=== PATIENT | male | born 1970 | race Caucasian/White ===

== ENCOUNTER 2019-06-22 13:10 | Inpatient (IN) ==
--- NOTE | 2019-06-22 13:40 | EKG Report ---
Test Performed on : 06/22/2019 1:32:50 PM Test Reason : SOB Blood Pressure : / mmHG Vent. Rate : 088 BPM Atrial Rate : 088 BPM P-R Int : 116 ms QRS Dur : 080 ms QT Int : 370 ms P-R-T Axes : 064 -13 073 degrees QTc Int : 447 ms Normal sinus rhythm. Normal ECG When compared with ECG of 01-AUG-2017 16:10, T wave amplitude has increased in Anterior leads QT has shortened Unconfirmed Result
[2019-06-22 13:53] LABS: BASO# 0.05 X1000 (0.0-0.2); BASO% 0.4 % (0.0-0.8); EOS# 0.33 X1000 (0.0-0.7); EOS% 2.7 % (0.0-10.0); HEMATOCRIT 43.1 % (42.0-52.0); HEMOGLOBIN 13.9 g/dL (14.0-18.0); IMM GRAN# 0.09 X1000 (0.0-0.04); IMM GRAN% 0.7 % (0.0-0.5); LYMPH# 2.21 X1000 (1.2-3.4); LYMPH% 17.9 % (20.5-51.1); MCH 28.4 PG (27-31); MCHC 32.3 g/dL (33-37); MONO# 1.43 X1000 (0.11-0.59); MONO% 11.6 % (1.7-9.3); MPV 8.5 FL (7.4-10.4); NEUT# 8.27 X1000 (1.4-6.5); NEUT% 66.7 % (42.2-75.2); PLT 463 X1000 (130-400); RDW 15.9 % (11.5-14.5); WBC 12.38 X1000 (4.8-10.8)
[2019-06-22 14:06] LABS: INR 2.89
[2019-06-22 14:07] LABS: PTT 43.9 Seconds (22.3-41.8)
[2019-06-22 14:09] LABS: AGAP 13; ALBUMIN 4.1 g/dL (3.5-5.0); ALKALINE PHOSPHATASE 86 U/L (32-122); BUN 12 mg/dL (8-22); CALCIUM 9.3 mg/dL (8.8-10.2); CHLORIDE 101 mmol/L (98-107); CK PROFILE 116 U/L (24-204); COSMO 278; CREATININE 1.1 mg/dL (0.7-1.2); ESTIMATED GFR > 60; GLUCOSE 114 mg/dL (70-104); GOT 21 U/L (10-34); GPT 21 U/L (10-44); POTASSIUM 4.5 mmol/L (3.5-5.1); SODIUM 139 mmol/L (136-145); TCO2 25 mmol/L (25-35); TOTAL PROTEIN 6.5 g/dL (6.3-8.3)
[2019-06-22 14:11] LABS: INFLUENZA A NEGATIVE (NEGATIVE); INFLUENZA B NEGATIVE (NEGATIVE)
--- NOTE | 2019-06-22 14:21 | Diag Imaging Result Doc PS360 ---
EXAM: CHEST-2 VIEWS HISTORY: SOB TECHNIQUE: PA and Lateral chest x-ray COMPARISON: 08/01/2017 FINDINGS: The cardiomediastinal silhouette is within normal limits. The pulmonary vasculature is not congested. No infiltrate, effusion, or pneumothorax is appreciated. Symmetrical nodular densities projecting over the lower lung zones likely represent nipple shadows. IMPRESSION: No acute cardiopulmonary abnormality is identified. Suspect bilateral nipple shadows. Correlate clinically. Electronically signed by Belia Medrano 06/22/2019 2:18 PM
[2019-06-22] MEDS ORDERED: DUONEB (A & A) INH ONE ×2 (15:00→15:57)
[2019-06-22] MEDS ORDERED: SOLU-MEDROL IV ONE (15:00)
--- NOTE | 2019-06-22 15:20 | PROVIDER DOCUMENTATION ---
HPI-Respiratory General - General Chief Complaint: Shortness of Breath Stated Complaint: FLU SX Time Seen by Provider: 06/22/19 14:55 Source: patient Allergies/Adverse Reactions: Patient Allergies Allergy/AdvReac Type Severity Reaction Status Date / Time morphine Allergy Unknown Verified 06/22/19 13:18 Home Medications: Home Medication List Medication Instructions Recorded Confirmed Last Taken Type Atenolol 100 mg PO BID 06/04/17 04/21/19 06/04/17 History Bupropion HCl 100 mg PO BID 06/04/17 04/21/19 06/04/17 History Diclofenac Sodium 50 mg PO BID 06/04/17 04/21/19 06/04/17 History Oxcarbazepine 300 mg PO BID 06/04/17 04/21/19 06/04/17 History Verapamil [Isoptin] 120 mg PO DAILY 06/04/17 04/21/19 06/04/17 History Ziprasidone HCl 80 mg PO BID 06/04/17 04/21/19 06/04/17 History Zolpidem [Ambien] 5 mg PO QHS 06/04/17 04/21/19 1 Day Ago History ~06/03/17 Acetaminophen/Diphenhydramine 1 ea PO Q6HR PRN #14 tab 04/21/19 Unknown Rx [Percogesic 325-12.5 mg Tablet] Atorvastatin Calcium 40 mg PO DAILY 04/21/19 04/21/19 Unknown History Warfarin Sodium [Coumadin] 5 mg PO DAILY 04/21/19 04/21/19 Unknown History Warfarin Sodium [Coumadin] 7.5 mg PO DAILY 04/21/19 04/21/19 Unknown History - History of Present Illness-Resp Nature of Presenting Problem: [id number] presents to the ER with c/o SOB with productive cough x 1 week. He reports extreme dyspnea with exertion. He reports he is a 2 PPD smoker and has a history of COPD. Severity in ED: reports: moderate Onset/Duration: reports: 1 week ago Cough Quality/Degree: reports: productive cough Episode Frequency: occasional episodes Current Respiratory Medication Therapy: Initiated A/A nebulizer Modifying Factors: improves with: albuterol nebulizer Associated Symptoms: reports: cough, shortness of breath, sweaty, wheezing Similar Symptoms Previously?: No Recently seen or treated by another doctor?: No Review of Systems - Adult - REVIEW OF SYSTEMS - ADULT Constitutional: reports: see HPI. denies: chills, fever Eyes: reports: no symptoms reported Ears, Nose, Mouth & Throat: reports: no symptoms reported Cardiovascular: reports: see HPI, orthopnea. denies: chest pain Respiratory: reports: see HPI, cough, dyspnea on exertion, excessive sputum production, shortness of breath, wheezing Gastrointestinal: reports: no symptoms reported Genitourinary: reports: no symptoms reported Musculoskeletal: reports: no symptoms reported Integumentary: reports: no symptoms reported Neurological: reports: no symptoms reported Psychiatric: reports: no symptoms reported Endocrine: reports: no symptoms reported Hematologic/Lymphatic: reports: no symptoms reported Allergic/Immunologic: reports: no symptoms reported All Other Systems: Reviewed and Negative Past History - Adult - PAST MEDICAL HISTORY-ADULT Review of Records: reports: Old Records Reviewed, Nursing Assessment Review, Medications Reviewed, Social history reviewed & non-contributory. Major Childhood Illnesses: reports: denies history Cardiovascular: reports: HTN, hyperlipidemia Respiratory: reports: COPD Gastrointestinal: reports: denies history Obstetrical/Gynecological: reports: denies history Genitourinary: reports: other (ED) Musculoskeletal: reports: chronic pain Neurological: reports: cognitive dysfunction, Seizures/Epilepsy, spinal cord/brain injury, other Psychiatric: reports: anxiety, bipolar, depression, psychiatric problems Endocrine/Immune: reports: denies history Other Conditions: reports: denies history - PRIOR SURGERIES/PROCEDURES Surgical/Procedure History: reports: orthopedic (extremity), back/neck, other (brain) - IMMUNIZATION STATUS Childhood Immunizations: See Nurse Assessment Flu Vaccine: See Nurse Assessment - FAMILY HISTORY Family History: reviewed, not pertinent - SOCIAL HISTORY Smoking: cigarettes, greater than 1 pack/day Provider spent 3-5 mins advising pt. on dangers of tobacco.: Discussed manners to quit use, and f/u contacts for add'l counseling. Substance Use: denies Living Situation: family Physical Exam-General - PHYSICAL EXAM-ADULT Initial Vital Signs Reviewed: Yes - CONSTITUTIONAL General Appearance: alert, moderate distress - EYES Eyes: PERRL/EOMI, pink conjunctivae - HEAD, EARS, NOSE, MOUTH & THROAT HENMT: moist mucous membranes, TMs normal - NECK Neck: full range of motion, supple, normal inspection - RESPIRATORY Respiratory: rhonchi, wheezing - CARDIOVASCULAR Cardiovascular: regular rate, rhythm - GASTROINTESTINAL (ABDOMEN) Abdominal Exam: non tender, soft - MUSCULOSKELETAL Extremity: normal range of motion, normal gait Peripheral Pulses: radial (R): 2+, radial (L): 2+ - SKIN Integumentary: normal color, warm/dry - NEUROLOGIC Neurologic: grossly normal - PSYCHIATRIC Psych/Mental Status: oriented x 3 - HEART Score HEART Score: History: Slightly Suspicious HEART Score: ECG: Normal HEART Score: Age: 45-65 Years HEART Score: Risk Factors for Atherosclerotic Disease: No Risk Factors Known HEART Score: Troponin: < or = Normal Limit Total HEART Score:: 1 Progress - PLAN OF CARE/RESULTS Progress/Plan/Lab Results: Vital Signs - 8 hr 06/22/19 13:15 06/22/19 15:03 06/22/19 15:12 Temperature 97.6 F Pulse Rate 99 H 84 85 Respiratory Rate 20 16 20 Blood Pressure 166/105 154/110 O2 Sat by Pulse Oximetry 96 97 94 L 06/22/19 15:41 Temperature Pulse Rate 90 Respiratory Rate 24 Blood Pressure 164/116 O2 Sat by Pulse Oximetry 95 Laboratory Results - last 24 hr 06/22/19 06/22/19 06/22/19 13:24 13:24 13:24 WBC 12.38 H RBC 4.90 Hgb 13.9 L Hct 43.1 MCV 88.0 MCH 28.4 MCHC 32.3 L RDW Std Deviation 15.9 H Plt Count 463 H MPV 8.5 Immature Gran % (Auto) 0.7 H Neut % (Auto) 66.7 Lymph % (Auto) 17.9 L [place] % (Auto) 11.6 H Eos % (Auto) 2.7 Baso % (Auto) 0.4 Immature Gran # (Auto) 0.09 H Neut # (Auto) 8.27 H Lymph # (Auto) 2.21 [place] # (Auto) 1.43 H Eos # (Auto) 0.33 Baso # (Auto) 0.05 PT INR PTT (Actin FS) D-Dimer, Quantitative Specimen Type Sample Site pH pCO2 pO2 HCO3 Base Excess Oxyhemoglobin ABG O2 Sat (Calculated) ABG O2 Saturation ABG Carboxyhemoglobin ABG Methemoglobin Kaden Test A-a O2 Difference Total Hemoglobin Lactate Blood Gas Modality FiO2 % Sodium 139 Potassium 4.5 Chloride 101 Carbon Dioxide 25 Anion Gap 13 BUN 12 Creatinine 1.1 Estimated GFR/1.73 m2 > 60 BUN/Creatinine Ratio 11 Glucose 114 H Calculated Osmolality 278 Calcium 9.3 Total Bilirubin 0.20 AST 21 ALT 21 Alkaline Phosphatase 86 Creatine Kinase 116 Troponin T Sft-M-Ltdadtkendn Pept Total Protein 6.5 Albumin 4.1 Globulin 2.0 Albumin/Globulin Ratio 2.0 Influenza A (Rapid) NEGATIVE Influenza B (Rapid) NEGATIVE 06/22/19 06/22/19 06/22/19 13:24 13:24 13:24 WBC RBC Hgb Hct MCV MCH MCHC RDW Std Deviation Plt Count MPV Immature Gran % (Auto) Neut % (Auto) Lymph % (Auto) [place] % (Auto) Eos % (Auto) Baso % (Auto) Immature Gran # (Auto) Neut # (Auto) Lymph # (Auto) [place] # (Auto) Eos # (Auto) Baso # (Auto) PT 32.0 H INR 2.89 PTT (Actin FS) 43.9 H D-Dimer, Quantitative Specimen Type Sample Site pH pCO2 pO2 HCO3 Base Excess Oxyhemoglobin ABG O2 Sat (Calculated) ABG O2 Saturation ABG Carboxyhemoglobin ABG Methemoglobin Kaden Test A-a O2 Difference Total Hemoglobin Lactate Blood Gas Modality FiO2 % Sodium Potassium Chloride Carbon Dioxide Anion Gap BUN Creatinine Estimated GFR/1.73 m2 BUN/Creatinine Ratio Glucose Calculated Osmolality Calcium Total Bilirubin AST ALT Alkaline Phosphatase Creatine Kinase Troponin T < 0.010 [id number] Pept 267 H Total Protein Albumin Globulin Albumin/Globulin Ratio Influenza A (Rapid) Influenza B (Rapid) 06/22/19 06/22/19 13:24 15:17 WBC RBC Hgb Hct MCV MCH MCHC RDW Std Deviation Plt Count MPV Immature Gran % (Auto) Neut % (Auto) Lymph % (Auto) [place] % (Auto) Eos % (Auto) Baso % (Auto) Immature Gran # (Auto) Neut # (Auto) Lymph # (Auto) [place] # (Auto) Eos # (Auto) Baso # (Auto) PT INR PTT (Actin FS) D-Dimer, Quantitative 0.32 Specimen Type ARTERIAL Sample Site R RADIAL pH 7.47 H pCO2 42 pO2 63 HCO3 29.6 H Base Excess 6.2 H Oxyhemoglobin 91.5 L ABG O2 Sat (Calculated) 18.9 ABG O2 Saturation 95.4 ABG Carboxyhemoglobin 3.00 H ABG Methemoglobin 1.1 Kaden Test YES A-a O2 Difference 34.0 Total Hemoglobin 14.7 Lactate 1.30 Blood Gas Modality ROOM AIR FiO2 % 21.0 Sodium Potassium Chloride Carbon Dioxide Anion Gap BUN Creatinine Estimated GFR/1.73 m2 BUN/Creatinine Ratio Glucose Calculated Osmolality Calcium Total Bilirubin AST ALT Alkaline Phosphatase Creatine Kinase Troponin T Aor-F-Iiwyspjjlho Pept Total Protein Albumin Globulin Albumin/Globulin Ratio Influenza A (Rapid) Influenza B (Rapid) Orders Category Date Time Status Cardiac Monitoring DIRECTED Care 06/22/19 13:19 Active Oxygen Therapy- ED Nursing DIRECTED Care 06/22/19 13:19 Active Saline Loc NOW Care 06/22/19 13:19 Active CHEST-2 VIEWS [RAD] Stat Exams 06/22/19 13:19 Completed ABG [RESP] Routine Lab 06/22/19 15:17 Completed CBC WITH ELECTRONIC DIFF [HEME] Stat Lab 06/22/19 13:24 Completed CK PROFILE [SP CHEM] Stat Lab 06/22/19 13:24 Completed CK PROFILE [SP CHEM] Stat Lab 06/22/19 15:01 Ordered COMPREHENSIVE METABOLIC PANEL [CHEM] Stat Lab 06/22/19 13:24 Completed D-DIMER [COAG] Stat Lab 06/22/19 13:[address] Stat Lab 06/22/19 13:24 Completed PRO B-NATRIURETIC PEPTIDE Stat Lab 06/22/19 13:24 Completed PROTIME WITH INR [COAG] Stat Lab 06/22/19 13:24 Completed PTT [COAG] Stat Lab 06/22/19 13:24 Completed TROPONIN T Stat Lab 06/22/19 13:24 Completed TROPONIN T Stat Lab 06/22/19 15:01 Ordered Albuterol 2.5MG/Ipratrop 0.5MG [Duoneb (A & A)] Med 06/22/19 15:00 Discontinued 3 ml INH NOW ONE Methylprednisolone Sod Succ [Solu-Medrol] Med 06/22/19 15:00 Discontinued 125 mg IV NOW ONE Aerosol Treatments Routine Oth 06/22/19 15:00 Completed Aerosol Treatments Stat Oth 06/22/19 15:00 Completed CP/SOB/Palp >45 yrs of Age Stat Oth 06/22/19 13:19 Ordered EKG [EKG] Stat Ther 06/22/19 13:19 Draft EKG [EKG] Stat Ther 06/22/19 15:01 Ordered patient verbalizes an understanding of POC and agrees with treatment rendered here today. Result Diagrams: 06/22/19 13:24 06/22/19 13:24 - EKG 1 Time of EKG reading by physician:: 15:22 EKG Read and Signed by:: Jose Antonio Smith EKG Interpretation (*Must complete 3 of following elements*): Normal Rate: 88 Rhythm: NSR [place]: normal QRS: normal [place] Interval: normal ST Wave: normal - XRAY 1 XRAY Study: Chest Impression: See EMR Report ( FINDINGS: The cardiomediastinal silhouette is within normal limits. The pulmonary vasculature is not congested. No infiltrate, effusion, or pneumothorax is appreciated. Symmetrical nodular densities projecting over the lower lung zones likely represent nipple shadows. IMPRESSION: No acute cardiopulmonary abnormality is identified. Suspect bilate ral nipple shadows. Correlate clinically.) - CONSULTS/PCP/HOSPITALIST Notification #1 *Consult/PCP/Hospitalist*: Dr mcarthur Time Discussed: 15:56 Reason/Comments: COPD exacerbation Consult Disposition: Admit Departure - Departure Date of Disposition Decision: 06/22/19 Time of Disposition Decision: 15:55 DIAGNOSIS: COPD exacerbation Disposition: ADMITTED INPATIENT 09 Certified Medical Emergency: Emergent Condition: Critical Additional Instructions: ED Follow Up Instructions: You have been treated by a care provider in the Emergency Department. These instructions are being provided to you so you can have an understanding of how to care for yourself upon discharge. Upon discharge from the Emergency Department, you are responsible for making arrangements for follow-up care by a physician of your choice. Take all prescribed medications as directed. Return to the Emergency Department immediately for any new or worsening symptoms. You may call the Physician Referral phone number at [phone] to obtain a list of Physicians who are taking new patients. Referrals and Follow-Ups: None,PCP [Primary Care Provider] - - Critical Care Note This patient required my direct & personal management of CC.: No Attestation - Physician/ MIRNA Attestation Patient care was provided by Advanced Practice Provider:: Yes Advanced Practice Provider:: Glenroy Chahal Advanced Practice Provider documentation review:: The Mid-level provider documentation, treatment plan and medical decision making was reviewed by the physician who agrees with all treatment and medical decision making by the MLP. The physician spent face to face time with patient:: No Advanced Practice Provider documentation review:: Supervising physician onsite and consulted in the evaluation and care of this patient. The physician did not have a face to face encounter with the patient.
[2019-06-22 15:26] LABS: BE 6.2 mmoll (-3.0-3.0); BLOOD TYPE ARTERIAL; HCO3-(ACT) 29.6 mmoll (20.0-26.0); METHB 1.1 % (0.0-1.5); O2(CT) 18.9 mL/dL (15.0-23.0); O2HB 91.5 % (95.0-99.0); PCO2(98.6) 42 mmHg (35-45); PO2(98.6) 63 mmHg (60-100); SAMPLE BLOOD; SAO2 95.4 % (95.0-100.0); THB 14.7 g/dL (11.5-17.4); pH(98.6) 7.47 (7.35-7.45)
[2019-06-22 15:29] LABS: MODALITY ROOM AIR
[2019-06-22 15:30] LABS: ALLEN TEST YES
--- NOTE | 2019-06-22 17:45 | HISTORY AND PHYSICAL ---
PRIMARY CARE PHYSICIAN: None. CHIEF COMPLAINT: Shortness of breath and a productive cough with dyspnea on exertion for 1 week that has progressively worsened. HISTORY OF PRESENTING ILLNESS: This is a 48-year-old male who presents to [facility] ER with a 1-week history of shortness of breath, dyspnea with exertion and a productive cough for 1 week that has progressively worsened. States he has continued to smoke and was a 2 pack a day smoker but over this past week has decreased down to about 3/4 of a pack and has a history of COPD actually asked me while I was assessing him if he could go outside and smoke. Explained to him that he would not be able to do that we would place him on a nicotine patch. His white blood cell count was 12.38. He was saturating 96% on room air when he arrived with a blood pressure 166/105. He is noted to have wheezing expiratory throughout entire posterior lung hector but his chest x-ray showed no acute cardiopulmonary abnormality so he will be admitted for an acute COPD exacerbation for further evaluation and treatment. PAST MEDICAL HISTORY: COPD, hypertension, hyperlipidemia, erectile dysfunction, seizures, anxiety and bipolar. PAST SURGICAL HISTORY: Of a back and neck surgery and a brain surgery. FAMILY HISTORY: Reviewed and noncontributory. SOCIAL HISTORY: Currently lives with family. He has been a 2 pack a day smoker since he was 12 years old but over the past week decreased down to 3/4 of a pack a day. Denies any alcohol or illicit drug use. ALLERGIES: Morphine. HOME MEDICATIONS: A current list will need to be obtained, reconciled, reviewed and restarted as appropriate. Will place an order for nursing to update and confirm home medications. LABORATORY DATA: Showed a white blood cell count of 12.38, hemoglobin 13.9, hematocrit 43.1, platelets 463,000, PT and INR of 32 and 2.89, D-dimer of 0.32. ABG with a pH of 7.47, pCO2 of 42, PO2 63, bicarb 29.6 this was on room air. Sodium 139, potassium 4.5, chloride 101, CO2 25, BUN of 12, creatinine 1.1, glucose 114. Creatine kinase of 116, troponin less than 0.010 with a proBNP of 267. Influenza A and B were both negative. Chest x-ray showed no acute cardiopulmonary abnormality identified. EKG showed normal sinus rhythm at 88. REVIEW OF SYSTEMS: He denied any fever, chills, blurred vision, dizziness, he denied any chest pain. He has had a productive cough, shortness of breath, dyspnea with exertion. Denied any abdominal pain, constipation, diarrhea, burning or hurting with urination. PHYSICAL EXAMINATION: On arrival he had a temperature of 97.6 degrees, pulse 99, respirations 20, blood pressure 166/105, saturating 96% on room air. GENERAL: This is a 48-year-old male who is sitting up in the bed and answers questions appropriately. HEENT: Normocephalic, atraumatic. Normal ENT inspection. Oropharynx and nares are clear. Pupils are equal, round, reactive to light, accommodation. Extraocular movements are intact. NECK: Normal inspection, normal range of motion. LUNGS: With wheezing expiratory throughout entire posterior lung hector. Equal lung expansion, chest wall movement noted. HEART: Regular rate and rhythm. No murmurs, rubs, or gallops. ABDOMEN: Soft, nontender, nondistended. Bowel sounds are present x4 quadrants. MUSCULOSKELETAL: He had 5/5 strength x4 extremities. NEUROLOGICAL: The cranial nerves 2-12 appear grossly intact. ASSESSMENT: 1. Acute chronic obstructive pulmonary disease exacerbation. 2. Leukocytosis. 3. Hypertension. 4. Tobacco abuse. OUR PLAN: He will be admitted to the medical unit placed on telemetry, O2 per protocol, placed on a healthy heart diet. Will place on Rocephin 1 gram IV q.24, azithromycin 500 IV q.24, Solu- Medrol 80 mg IV q.6 will wean as he improves, nicotine 21 mg transdermal patch daily apply 1 now, Lovenox 40 mg subcu for DVT prophylaxis, DuoNeb q.4 hours, incentive spirometry. We need to update and confirm home medications and recheck a CBC, BMP in the a.m. Further orders after seen by attending. Dictated by KARLA Glover for Erick Taveras MD cc: KARLA Glover MD Pt seen and examined, he has dyspnea, productive cough and features c/w COPD exacerbation, will admit for iv steroids, abx and follow closely. [facility]
[2019-06-22] MEDS ORDERED: APRESOLINE IV PRN (18:05)
[2019-06-22] MEDS ORDERED: LOVENOX SUBQ SCH (18:05)
[2019-06-22] MEDS ORDERED: ROCEPHIN 1 GM in NS 50 ML IV SCH (18:05)
[2019-06-22] MEDS: NICODERM PATCH TD SCH (19:34)
[2019-06-22] MEDS: DUONEB (A & A) INH SCH ×2 (19:42→23:30)
[2019-06-22] MEDS ORDERED: ZITHROMAX 500 MG/NS 500 MG/250 ML IVPB IV SCH (20:00)
[2019-06-22] MEDS: SOLU-MEDROL IV SCH (20:16)
[2019-06-23] MEDS: SOLU-MEDROL IV SCH ×3 (02:45→14:46)
[2019-06-23] MEDS: DUONEB (A & A) INH SCH ×4 (02:47→15:54)
--- NOTE | 2019-06-23 05:50 | EKG Report ---
Test Performed on : 06/23/2019 05:23:09 AM Test Reason : CP Blood Pressure : / mmHG Vent. Rate : 100 BPM Atrial Rate : 100 BPM P-R Int : 122 ms QRS Dur : 084 ms QT Int : 386 ms P-R-T Axes : 070 019 086 degrees QTc Int : 497 ms Normal sinus rhythm. Prolonged QT Abnormal ECG No previous ECGs available Confirmed by Jose Antonio Smith MD ([id number]) on 06/28/2019 1:48:46 AM
[2019-06-23 06:35] LABS: BASO# 0.01 X1000 (0.0-0.2); BASO% 0.1 % (0.0-0.8); HEMATOCRIT 42.4 % (42.0-52.0); HEMOGLOBIN 13.5 g/dL (14.0-18.0); IMM GRAN# 0.07 X1000 (0.0-0.04); IMM GRAN% 0.4 % (0.0-0.5); LYMPH# 0.52 X1000 (1.2-3.4); LYMPH% 2.9 % (20.5-51.1); MCH 27.8 PG (27-31); MCHC 31.8 g/dL (33-37); MCV 87.2 FL (81-99); MONO# 0.18 X1000 (0.11-0.59); MPV 8.8 FL (7.4-10.4); NEUT# 17.26 X1000 (1.4-6.5); NEUT% 95.6 % (42.2-75.2); PLT 475 X1000 (130-400); RBC 4.86 XMIL (4.7-6.1); RDW 15.7 % (11.5-14.5); WBC 18.04 X1000 (4.8-10.8)
[2019-06-23 06:44] LABS: AGAP 16; BUN 19 mg/dL (8-22); CALCIUM 9.4 mg/dL (8.8-10.2); CHLORIDE 93 mmol/L (98-107); COSMO 276; CREATININE 1.1 mg/dL (0.7-1.2); ESTIMATED GFR > 60; GLUCOSE 231 mg/dL (70-104); SODIUM 133 mmol/L (136-145); TCO2 24 mmol/L (25-35)
[2019-06-23 07:14] LABS: ANISOCYTOSIS OCCASIONAL; LYMPHS 1 % (21-51); POLYCHROM OCCASIONAL; SEGS 99 % (42-75)
[2019-06-23 07:15] LABS: LARGE PLATELETS OCCASIONAL; OVALOCYTES OCCASIONAL; POIKILOCYTOSIS OCCASIONAL
[2019-06-23] MEDS: NICODERM PATCH TD SCH (09:31)
[2019-06-23] MEDS ORDERED: STERILE WATER INJ. INJ PRN (11:59)
[2019-06-23] MEDS ORDERED: GEODON IM PRN (11:59)
[2019-06-23 12:34] VITALS: BP 153/98
[2019-06-23] MEDS ORDERED: TESSALON PO PRN (13:55)
--- NOTE | 2019-06-23 19:12 | DISCHARGE SUMMARY ---
ADMISSION DATE: 06/22/2019 DISCHARGE DATE: 06/23/2019 DISCHARGE DIAGNOSES: 1. Chronic obstructive pulmonary disease exacerbation, acute. 2. Persistent tobacco abuse. 3. Posttraumatic stress disorder. 4. Hypertension. HOSPITAL COURSE: The patient was admitted for COPD exacerbation. He had significant wheezing, persistent smoking. His white count was mildly elevated. I do not think his chest x-ray showed any CHF. In any case, he was placed on breathing treatments and steroids, and clinically improved by the next day. He was getting a little agitated, and I think it may have been related to the steroids. Of note, he did have a fasting blood sugar that was elevated around 200, but I think that was due to steroid-induced hyperglycemia versus a true diagnosis of diabetes at this point, so he was educated on carb restriction and will follow up with his PCP. DISCHARGE MEDICATIONS: Ambien 5, atenolol 100 b.i.d., atorvastatin 40, benzonatate p.r.n., Wellbutrin (but I think he does not take that anymore and there is questionable history of seizures so he should probably not be taking that), Coumadin 10, diclofenac 50 b.i.d., Isoptin 120 daily, oxcarbazepine 300 b.i.d. (although this was not confirmed), prednisone 10 daily(again, not sure that was confirmed), [place], Chantix 0.5 b.i.d. starter pack, Medrol Dosepak, and cefdinir 300 b.i.d. He will also need to be getting DuoNeb treatments, and he reportedly has a machine for that. DISPOSITION: Home. FOLLOWUP: Follow up with his PCP to discuss about the Chantix and to follow up on the steroid- induced hyperglycemia. cc: Erick Taveras MD
[2019-06-23] MEDS ORDERED: AMBIEN PO SCH (21:00)
[2019-06-23] MEDS ORDERED: VOLTAREN PO SCH (21:00)
[2019-06-23] MEDS ORDERED: TENORMIN PO SCH (21:00)
[2019-06-24] MEDS ORDERED: ISOPTIN SR PO SCH (09:00)
[2019-06-24] MEDS ORDERED: PREDNISONE PO SCH (09:00)
[2019-06-24] MEDS ORDERED: COUMADIN PO SCH (21:00)
[2019-06-24] MEDS ORDERED: LIPITOR PO SCH (21:00)
== END 2019-06-23 15:10 | disposition home or self-care (01) | DRG 192 ==
LOC: P.ED 13:10 → P.EDIPHOLD 16:31
PROVIDERS: ATTEND Internal Medicine

== ENCOUNTER 2019-06-28 06:42 | Inpatient (IN) ==
[2019-06-28 07:18] LABS: BE -2.5 mmoll (-3.0-3.0); BLOOD TYPE ARTERIAL; HCO3-(ACT) 22.9 mmoll (20.0-26.0); METHB 1.1 % (0.0-1.5); O2(CT) 20.7 mL/dL (15.0-23.0); O2HB 96.4 % (95.0-99.0); PO2(98.6) 372 mmHg (60-100); SAMPLE BLOOD; SAO2 99.9 % (95.0-100.0); THB 14.6 g/dL (11.5-17.4)
[2019-06-28] MEDS ORDERED: AMIDATE ONE (07:20)
[2019-06-28] MEDS ORDERED: QUELICIN ONE (07:20)
[2019-06-28] MEDS ORDERED: QUELICIN IV ONE (07:21)
[2019-06-28] MEDS ORDERED: NS 1,000 ML ONE ×2 (07:21→10:13)
[2019-06-28] MEDS ORDERED: D50W SYRINGE ONE (07:21)
[2019-06-28] MEDS ORDERED: AMIDATE IV ONE ×2 (07:22→07:40)
[2019-06-28] MEDS ORDERED: NS 1,000 ML IV ONE ×3 (07:23→12:22)
[2019-06-28] MEDS ORDERED: D50W SYRINGE IV ONE (07:24)
[2019-06-28] MEDS ORDERED: VERSED ONE ×2 (07:33→09:12)
[2019-06-28] MEDS ORDERED: ATIVAN ONE (07:35)
[2019-06-28] MEDS ORDERED: VERSED IV ONE ×2 (07:35→09:39)
[2019-06-28] MEDS ORDERED: NS 250 ML ONE (07:36)
[2019-06-28] MEDS ORDERED: TYLENOL PR ONE (07:42)
[2019-06-28] MEDS ORDERED: ATIVAN 20 MG in NS 190 ML IV SCH (07:45)
--- NOTE | 2019-06-28 07:51 | PROVIDER DOCUMENTATION ---
HPI-Neurological Disorder - General Chief Complaint: Seizure Stated Complaint: SEIZURE Time Seen by Provider: 06/28/19 07:02 Source: EMS, RN notes reviewed Allergies/Adverse Reactions: Patient Allergies Allergy/AdvReac Type Severity Reaction Status Date / Time morphine Allergy Unknown Verified 06/27/19 21:18 Home Medications: Home Medication List Medication Instructions Recorded Confirmed Last Taken Type Atenolol 100 mg PO BID 06/04/17 06/27/19 06/22/19 08:00 History Verapamil [Isoptin] 120 mg PO DAILY 06/04/17 06/27/19 06/22/19 08:00 History Zolpidem [Ambien] 5 mg PO QHS 06/04/17 06/27/19 06/21/19 21:00 History Warfarin Sodium [Coumadin] 10 mg PO DAILY 04/21/19 06/27/19 06/22/19 08:00 History Prednisone 1 tab PO DAILY 06/22/19 06/27/19 06/21/19 08:00 History Albuterol 2.5MG/Ipratrop 0.5MG 3 ml INH RTQ6H #120 neb 06/23/19 06/27/19 Unknown Rx [Duoneb] CefDINIR [Omnicef] 300 mg PO BID #14 cap 06/23/19 06/27/19 Unknown Rx - History of Present Illness-Neuro Nature of Presenting Problem: patient left AMA last night refused admission for COPD, return with seizure, decreased mental status and diaphoresis Severity: reports: moderate Onset/Duration: reports: abrupt, this morning Timing: reports: still present Character of Altered Mental Status: reports: disoriented, seizure activity, decreased responsiveness Any recent trauma/injury?: reports: none Cognitive Baseline: alert, oriented x3 Gait Baseline: walks without assistance Associated Symptoms: reports: short of breath, diaphoretic, seizures Similar Symptoms Previously?: Yes Recently seen or treated by another doctor?: Yes (treated in ER left AMA ) - Seizure First time to have a seizure?: No Witnessed seizure?: Yes Episode Frequency: rare episodes Status Epilepticus: Yes Character of Seizure: reports: lost consciousness Post-ictal Symptoms: reports: confusion Review of Systems - Adult - REVIEW OF SYSTEMS - ADULT Constitutional: reports: fever, fatique Ears, Nose, Mouth & Throat: reports: no symptoms reported Cardiovascular: reports: syncope Respiratory: reports: cough, shortness of breath Gastrointestinal: reports: no symptoms reported Genitourinary: reports: no symptoms reported Musculoskeletal: reports: no symptoms reported Integumentary: reports: no symptoms reported Neurological: reports: seizure, syncope Psychiatric: reports: no symptoms reported Endocrine: reports: no symptoms reported Hematologic/Lymphatic: reports: no symptoms reported Allergic/Immunologic: reports: no symptoms reported Past History - Adult - PAST MEDICAL HISTORY-ADULT Review of Records: reports: Nursing Assessment Review Major Childhood Illnesses: reports: denies history Cardiovascular: reports: HTN, hyperlipidemia Respiratory: reports: COPD Gastrointestinal: reports: denies history Obstetrical/Gynecological: reports: denies history Genitourinary: reports: other (ED) Musculoskeletal: reports: chronic pain Neurological: reports: cognitive dysfunction, Seizures/Epilepsy, spinal cord/brain injury, other Psychiatric: reports: anxiety, bipolar, depression, psychiatric problems Endocrine/Immune: reports: denies history Other Conditions: reports: denies history - PRIOR SURGERIES/PROCEDURES Surgical/Procedure History: reports: orthopedic (extremity), back/neck, other (brain) - IMMUNIZATION STATUS Childhood Immunizations: See Nurse Assessment Flu Vaccine: See Nurse Assessment - FAMILY HISTORY Family History: reviewed, not pertinent Physical Exam- Neurological - Physical Exam-Neuro Initial Vital Signs Reviewed: Yes General Appearance: obtunded HENMT: normocephalic/atraumatic Head Injury: no evidence of injury. negative: active bleeding, Mello's Sign Neck: full range of motion, supple. negative: C-spine tenderness Respiratory: decreased breath sounds, prolonged expiration, other (shallow breathing). 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 Exam: other (moved all extremities at time, unable to fully assess due to patient's current mental status) Motor/Sensory: no motor deficit, no sensory deficit Neurologic: other (moved all extremities) Integumentary: pallor - Glascow Coma Scale Best Eye Response: (2) open to pain Best Verbal Response: (1) no verbal response Best Motor Response: (4) withdraws to pain Progress - PLAN OF CARE/RESULTS Progress/Plan/Lab Results: Vital Signs - 8 hr 06/28/19 07:06 Temperature 100.1 F H Pulse Rate 77 Respiratory Rate 30 H Blood Pressure 120/77 O2 Sat by Pulse Oximetry 99 Laboratory Results - last 24 hr 06/28/19 06/28/19 06/28/19 06:55 07:01 07:01 Specimen Type ARTERIAL Sample Site L RADIAL pH 7.20 L pCO2 70 H* pO2 372 H HCO3 22.9 Base Excess -2.5 Oxyhemoglobin 96.4 ABG O2 Sat (Calculated) 20.7 ABG O2 Saturation 99.9 ABG Carboxyhemoglobin 2.40 ABG Methemoglobin 1.1 Kaden Test YES A-a O2 Difference 254.0 Total Hemoglobin 14.6 Lactate 2.10 Blood Gas Modality RESUSC BAG FiO2 % 100.0 POC Glucose Urine Source CATH Urine Color YELLOW Urine Turbidity HAZY Urine pH 7.0 Ur Specific Clyman 1.013 Urine Protein 200 A Ur Glucose (Stick) NEGATIVE Ur Ketones (Stick) NEGATIVE Urine Blood MODERATE A Urine Nitrite NEGATIVE Urine Bilirubin NEGATIVE Urobilinogen Dipstick NORMAL Urine Leukocytes NEGATIVE Urine WBC (Auto) 10-20 A Urine RBC (Auto) 20-40 A U Epithel Cells (Auto) <10 Urine Bacteria (Auto) 1+ Urine Crystals NONE SEEN Small Round Cells NONE SEEN Urine Casts NONE SEEN Urine Yeast-like Cells PRESENT Urine Opiates Screen NONE DETECTED Ur Oxycodone Screen NONE DETECTED Urine Methadone Screen NONE DETECTED U Propoxyphene Qual NONE DETECTED Ur Barbituates Screen NONE DETECTED Ur Tricyclics Screen NONE DETECTED Ur Phencyclidine Scrn NONE DETECTED Ur Amphetamines Screen NONE DETECTED U Methamphetamines Scrn PRESUMPTIVE POSITIVE A U Benzodiazepines Scrn NONE DETECTED Urine Cocaine Screen NONE DETECTED U Cannabinoids Screen PRESUMPTIVE POSITIVE A 06/28/19 07:19 Specimen Type Sample Site pH pCO2 pO2 HCO3 Base Excess Oxyhemoglobin ABG O2 Sat (Calculated) ABG O2 Saturation ABG Carboxyhemoglobin ABG Methemoglobin Kaden Test A-a O2 Difference Total Hemoglobin Lactate Blood Gas Modality FiO2 % POC Glucose 67 L Urine Source Urine Color Urine Turbidity Urine pH Ur Specific Clyman Urine Protein Ur Glucose (Stick) Ur Ketones (Stick) Urine Blood Urine Nitrite Urine Bilirubin Urobilinogen Dipstick Urine Leukocytes Urine WBC (Auto) Urine RBC (Auto) U Epithel Cells (Auto) Urine Bacteria (Auto) Urine Crystals Small Round Cells Urine Casts Urine Yeast-like Cells Urine Opiates Screen Ur Oxycodone Screen Urine Methadone Screen U Propoxyphene Qual Ur Barbituates Screen Ur Tricyclics Screen Ur Phencyclidine Scrn Ur Amphetamines Screen U Methamphetamines Scrn U Benzodiazepines Scrn Urine Cocaine Screen U Cannabinoids Screen Orders Category Date Time Status [place] [facility] Insert[facility] ORDERED Care 06/28/19 08:17 Active Nursing [Misc. NRSG Communication Order] DIRECTED Care 06/28/19 06:55 Completed CHEST/ABD TUBE PLACEMENT [RAD] Stat Exams 06/28/19 07:[address] HEAD W/O CONTRAST [CT] Stat Exams 06/28/19 07:30 Completed ABG [RESP] Routine Lab 06/28/19 06:55 Completed BLOOD CULTURE [BLDCUL] Stat Lab 06/28/19 08:54 Uncollected CBC WITH DIFF [HEME] Stat Lab 06/28/19 08:53 Uncollected COMPREHENSIVE METABOLIC PANEL [CHEM] Stat Lab 06/28/19 08:53 Uncollected MAGNESIUM [CHEM] Stat Lab 06/28/19 08:53 Uncollected TSH Stat Lab 06/28/19 08:53 Uncollected UA [URINALYSIS W/POSS RFLX CULT] [URINALYSIS] Stat Lab 06/28/19 07:01 Completed URINE CULTURE [RM] Routine Lab 06/28/19 08:48 Ordered URINE DRUG SCREEN PL Stat Lab 06/28/19 07:01 Completed URINE MANUAL MICROSCOPIC [URINALYSIS] Stat Lab 06/28/19 07:01 Completed 0.9% Sodium Chloride Inj [Ns] 1,000 ml Med 06/28/19 07:21 Discontinued .ROUTE As directed 0.9% Sodium Chloride Inj [Ns] 1,000 ml Med 06/28/19 07:23 Discontinued IV 999 mls/hr 0.9% Sodium Chloride Inj [Ns] 190 ml Med 06/28/19 07:45 Active Lorazepam [Ativan] 20 mg IV As Directed mls/hr 0.9% Sodium Chloride Inj [Ns] 250 ml Med 06/28/19 07:36 Discontinued .ROUTE As directed Acetaminophen [Tylenol] Med 06/28/19 07:42 Discontinued 650 mg LA NOW ONE CefTRIAXONE [Rocephin] Med 06/28/19 08:54 Discontinued 1 gm IV NOW ONE Dextrose 5%-0.45% NaCl Inj [D5 1/2 Ns] 250 ml Med 06/28/19 09:00 Ordered Norepinephrine [Levophed] 8 mg IV As Directed mls/hr Dextrose 50% Syringe [D50w Syringe] Med 06/28/19 07:21 Discontinued 50 ml .ROUTE .STK-MED ONE Dextrose 50% Syringe [D50w Syringe] Med 06/28/19 07:24 Discontinued 50 ml IV NOW ONE Etomidate [Amidate] Med 06/28/19 07:40 Discontinued 10 mg IV NOW ONE Etomidate [Amidate] Med 06/28/19 07:20 Discontinued 20 mg .ROUTE .STK-MED ONE Etomidate [Amidate] Med 06/28/19 07:22 Discontinued 20 mg IV NOW ONE Lorazepam [Ativan] Med 06/28/19 07:35 Discontinued 20 mg .ROUTE .STK-MED ONE Midazolam [Versed] Med 06/28/19 07:35 Discontinued 4 mg IV NOW ONE Midazolam [Versed] Med 06/28/19 07:33 Discontinued 5 mg .ROUTE .STK-MED ONE Pantoprazole [Protonix] Med 06/28/19 09:00 Ordered 40 mg IV Q12H Pharmacy Order [Vancomycin IV Per Pharmacy] Med 06/28/19 09:00 Ordered 1 each MISC DIRECTED Piperacillin/Tazobactam [Zosyn] 3.375 gm Med 06/28/19 09:00 Ordered 0.9% Sodium Chloride Inj [Ns] 50 ml IV Q6H Propofol [Diprivan 1%] Med 06/28/19 09:00 Ordered 1,000 mg in 100 ml IV As Directed mls/hr Sodium Chloride 0.9% Med 06/28/19 09:00 Ordered 10 ml INJ DIRECTED Succinylcholine [Quelicin] Med 06/28/19 07:21 Discontinued 100 mg IV NOW ONE Succinylcholine [Quelicin] Med 06/28/19 07:20 Discontinued 200 mg .ROUTE .STK-MED ONE - XRAY 1 XRAY Study: Chest Impression: See EMR Report (EXAM: CHEST/ABD TUBE PLACEMENT - 06/28/2019 HISTORY: tube placement TECHNIQUE: Chest/abdomen tube placement COMPARISON: 06/27/2020 view chest FINDINGS: There has been interval placement of an endotracheal tube. There is an external wire which overlies the distal portion of the endotracheal tube. The tip of endotracheal tube appears be located in satisfactory position approximately 6.5 cm above the kuldeep. There is been interval insertion of a nasogastric tube. The tip of the nasogastric tube is at the expected location of the proximal to mid stomach. Heart size is normal. The lungs appear essentially clear. There is no pleural effusion or pneumothorax identified. IMPRESSION: Tip of endotracheal tube in satisfactory position approximately 6.5 cm above the kuldeep. Tip of nasogastric tube in proximal to mid stomach. No evidence of acute cardiopulmonary disease. Electronically signed by Roberto Mendez 06/28/2019 8:25 AM) - CT/MRI 1 CT Study: Head Impression: See EMR Report (EXAM: CT HEAD W/O CONTRAST - 06/28/2019 HISTORY: seizure TECHNIQUE: CT head without contrast COMPARISON: 08/01/2017 FINDINGS: There are postsurgical changes of left frontal craniotomy similar to prior. There is encephalomalacia at the left inferior frontal lobe which extends to the frontal temporal junction, similar to prior. There is encephalomalacia suggestive of old small infarct at the left parietal lobe. There are chronic appearing microvascular ischemic changes. There is no discrete acute infarct identified, although acute infarcts may not be immediately visible. There is no evidence of intracranial hemorrhage, mass effect, midline shift, or hydrocephalus. There is no evidence of skull fracture. There is paranasal sinus disease noted. IMPRESSION: Postsurgical changes of left frontal craniotomy. Chronic appearing ischemic changes. No discrete acute intracranial abnormality. No hemorrhage or mass effect. There is paranasal sinus disease noted. This exam was performed using automated exposure control, adjustment of mA or kV according to patient size, and/or use of iterative reconstruction technique. Electronically signed by Roberto Mendez 06/28/2019 8:34 AM 06/28/19 0834 Interpreting Physician: Roberto Mendez MD Dictated Date/Time: [birth year]25 cc: Sharron Poon MD; None,PCP) Procedures - INTUBATION Time of Intubation: 07:30 Airway Evaluation: Large tongue, Copious Secretions Intubation Method: orotracheal Equipment: Glidescope Tube Size (cm): 7.5 ETT Primary Tube Confirmation: Direct Visualization, Chest Rise and Fall Intubation Complications: no complications Vent Settings: See Respiratory Therapy Notes Departure - Departure Date of Disposition Decision: 06/28/19 Time of Disposition Decision: 08:50 DIAGNOSIS: COPD exacerbation, Seizure, Respiratory distress, Intubation of airway performed without difficulty Disposition: ADMITTED INPATIENT 09 Certified Medical Emergency: Emergent Condition: Critical Referrals and Follow-Ups: None,PCP [Primary Care Provider] - - Critical Care Note This patient required my direct & personal management of CC.: Yes Total Time (mins): 31 Critical Care Statement: This patient required my direct personal management to treat or rule out processes, the absence of which, could potentiallly result in sudden, clinically significant life or limb threatening deterioration. Attestation - Physician/ MIRNA Attestation Patient care was provided by Advanced Practice Provider:: No The physician spent face to face time with patient:: Yes Advanced Practice Provider documentation review:: Supervising physician onsite and consulted in the evaluation and care of this patient. The physician did have a face to face encounter with the patient.
[2019-06-28 08:24] LABS: URINE SOURCE CATH
--- NOTE | 2019-06-28 08:27 | Diag Imaging Result Doc PS360 ---
EXAM: CHEST/ABD TUBE PLACEMENT - 06/28/2019 HISTORY: tube placement TECHNIQUE: Chest/abdomen tube placement COMPARISON: 06/27/2020 view chest FINDINGS: There has been interval placement of an endotracheal tube. There is an external wire which overlies the distal portion of the endotracheal tube. The tip of endotracheal tube appears be located in satisfactory position approximately 6.5 cm above the kuldeep. There is been interval insertion of a nasogastric tube. The tip of the nasogastric tube is at the expected location of the proximal to mid stomach. Heart size is normal. The lungs appear essentially clear. There is no pleural effusion or pneumothorax identified. IMPRESSION: Tip of endotracheal tube in satisfactory position approximately 6.5 cm above the kuldeep. Tip of nasogastric tube in proximal to mid stomach. No evidence of acute cardiopulmonary disease. Electronically signed by Roberto Mendez 06/28/2019 8:25 AM
--- NOTE | 2019-06-28 08:37 | Diag Imaging Result Doc PS360 ---
EXAM: CT HEAD W/O CONTRAST - 06/28/2019 HISTORY: seizure TECHNIQUE: CT head without contrast COMPARISON: 08/01/2017 FINDINGS: There are postsurgical changes of left frontal craniotomy similar to prior. There is encephalomalacia at the left inferior frontal lobe which extends to the frontal temporal junction, similar to prior. There is encephalomalacia suggestive of old small infarct at the left parietal lobe. There are chronic appearing microvascular ischemic changes. There is no discrete acute infarct identified, although acute infarcts may not be immediately visible. There is no evidence of intracranial hemorrhage, mass effect, midline shift, or hydrocephalus. There is no evidence of skull fracture. There is paranasal sinus disease noted. IMPRESSION: Postsurgical changes of left frontal craniotomy. Chronic appearing ischemic changes. No discrete acute intracranial abnormality. No hemorrhage or mass effect. There is paranasal sinus disease noted. This exam was performed using automated exposure control, adjustment of mA or kV according to patient size, and/or use of iterative reconstruction technique. Electronically signed by Roberto Mendez 06/28/2019 8:34 AM
[2019-06-28 08:39] LABS: BILIRUBIN URINE NEGATIVE (NEGATIVE); BLOOD URINE MODERATE (NEGATIVE); COLOR YELLOW; GLUCOSE URINE NEGATIVE (NEGATIVE); KETONE URINE NEGATIVE (NEGATIVE); LEUKOCYTES URINE NEGATIVE (NEGATIVE); NITRITE URINE NEGATIVE (NEGATIVE); PROTEIN URINE 200 mg/dL (NEGATIVE); SP GRAVITY URINE 1.013; TURBIDITY URINE HAZY (CLEAR); UROBILINOGEN URINE NORMAL (NORMAL)
[2019-06-28 08:40] LABS: UR AMPHETAMINES QUAL NONE DETECTED (NONE DETECT); UR BARBITUATES QUAL NONE DETECTED (NONE DETECT); UR BENZODIAZEPIN QUAL NONE DETECTED (NONE DETECT); UR CANNABINOIDS QUAL PRESUMPTIVE POSITIVE (NONE DETECT); UR COCAINE QUAL NONE DETECTED (NONE DETECT); UR METHADONE QUAL NONE DETECTED (NONE DETECT); UR METHAMPHETAMINE QUAL PRESUMPTIVE POSITIVE (NONE DETECT); UR OPIATES QUAL NONE DETECTED (NONE DETECT); UR OXYCODONE QUAL NONE DETECTED (NONE DETECT); UR PCP QUAL NONE DETECTED (NONE DETECT); UR PROPOXYPHENE QUAL NONE DETECTED (NONE DETECT); UR TCA QUAL NONE DETECTED (NONE DETECT)
[2019-06-28 08:47] LABS: MODALITY RESUSC BAG; PCO2(98.6) 70 mmHg (35-45)
[2019-06-28 08:48] LABS: ALLEN TEST YES
[2019-06-28 08:48] LABS: UR EPITHELIAL CELLS <10 /HPF (<10); URINE BACTERIA 1+ /HPF; URINE CASTS NONE SEEN; URINE CRYSTALS NONE SEEN; URINE RBC 20-40 /HPF (<10); URINE SMALL ROUND CELLS NONE SEEN; URINE YEAST PRESENT
[2019-06-28] MEDS ORDERED: ROCEPHIN IV ONE (08:54)
[2019-06-28] MEDS: ZOSYN 3.375 GM in NS 50 ML IV SCH ×3 (09:00→21:16)
[2019-06-28] MEDS: PROTONIX IV SCH ×2 (09:00→21:15)
[2019-06-28] MEDS ORDERED: VANCOMYCIN IV PER PHARMACY MISC SCH (09:00)
--- NOTE | 2019-06-28 09:06 | EKG Report ---
Test Performed on : 06/28/2019 07:05:12 AM Test Reason : ER Blood Pressure : / mmHG Vent. Rate : 081 BPM Atrial Rate : 081 BPM P-R Int : 116 ms QRS Dur : 086 ms QT Int : 382 ms P-R-T Axes : 051 003 070 degrees QTc Int : 443 ms Normal sinus rhythm. Normal ECG When compared with ECG of 27-JUN-2019 22:59, (Unconfirmed) No significant change was found Unconfirmed Result
[2019-06-28 09:23] LABS: BASO# 0.03 X1000 (0.0-0.2); BASO% 0.2 % (0.0-0.8); EOS# 0.26 X1000 (0.0-0.7); EOS% 1.6 % (0.0-10.0); HEMATOCRIT 42.7 % (42.0-52.0); HEMOGLOBIN 13.5 g/dL (14.0-18.0); IMM GRAN# 0.15 X1000 (0.0-0.04); IMM GRAN% 0.9 % (0.0-0.5); LYMPH# 0.86 X1000 (1.2-3.4); LYMPH% 5.2 % (20.5-51.1); MCHC 31.6 g/dL (33-37); MCV 88.6 FL (81-99); MONO# 1.89 X1000 (0.11-0.59); MONO% 11.4 % (1.7-9.3); NEUT# 13.42 X1000 (1.4-6.5); NEUT% 80.7 % (42.2-75.2); PLT 418 X1000 (130-400); RBC 4.82 XMIL (4.7-6.1); RDW 16.6 % (11.5-14.5); WBC 16.61 X1000 (4.8-10.8)
[2019-06-28 09:31] LABS: ALBUMIN 4.4 g/dL (3.5-5.0); CALCIUM 8.8 mg/dL (8.8-10.2); CREATININE 1.5 mg/dL (0.7-1.2); MAGNESIUM 2.7 mg/dL (1.5-2.7); POTASSIUM 5.4 mmol/L (3.5-5.1); TOTAL BILIRUBIN 0.4 mg/dL (0.20-1.00); TOTAL PROTEIN 7.1 g/dL (6.3-8.3)
[2019-06-28 09:51] LABS: INR 4.14; PTT 50.7 Seconds (22.3-41.8)
[2019-06-28 10:05] LABS: LYMPHS 6 % (21-51); MONO 11 % (1-9); SEGS 81 % (42-75)
[2019-06-28 10:06] LABS: EOS 2 % (1-10)
[2019-06-28] MEDS: DIPRIVAN 1% 1,000 MG/100 ML BOTTLE IV SCH ×7 (10:06→21:32)
[2019-06-28 10:07] LABS: PROTIME 42.7 Seconds (11.0-16.0)
[2019-06-28] MEDS: VANCOMYCIN 2,000 MG in NS 500 ML IV SCH ×2 (10:30→11:27)
[2019-06-28 10:32] LABS: BE -3.2 mmoll (-3.0-3.0); BLOOD TYPE ARTERIAL; HCO3-(ACT) 22.4 mmoll (20.0-26.0); METHB 0.9 % (0.0-1.5); O2(CT) 17.9 mL/dL (15.0-23.0); O2HB 96.8 % (95.0-99.0); PO2(98.6) 171 mmHg (60-100); SAMPLE BLOOD; SAO2 99.3 % (95.0-100.0); SRATE 16 BPM; THB 12.9 g/dL (11.5-17.4); TVOL 500 mL
[2019-06-28] MEDS ORDERED: CALCIUM GLUCONATE 2 GM in NS 100 ML IV ONE (10:32)
[2019-06-28] MEDS ORDERED: CALCIUM GLUCONATE 1 GM in NS 100 ML IV ONE (10:34)
[2019-06-28] MEDS: LEVOPHED 8 MG in D5 1/2 NS 250 ML IV SCH ×3 (10:35→12:17)
[2019-06-28 10:46] LABS: pH(98.6) 7.19 (7.35-7.45)
[2019-06-28 10:47] LABS: ALLEN TEST YES; MODALITY VENTILATOR; PCO2(98.6) 69 mmHg (35-45)
[2019-06-28] MEDS: NS 1,000 ML IV SCH ×2 (11:15→21:15)
[2019-06-28] MEDS ORDERED: NS 2,000 ML ONE (11:26)
[2019-06-28 11:56] LABS: BLOOD TYPE ARTERIAL; HCO3-(ACT) 19.5 mmoll (20.0-26.0); METHB 0.8 % (0.0-1.5); O2(CT) 17.3 mL/dL (15.0-23.0); O2HB 96.7 % (95.0-99.0); PO2(98.6) 130 mmHg (60-100); SAMPLE BLOOD; SAO2 99.3 % (95.0-100.0); SRATE 18 BPM; THB 12.6 g/dL (11.5-17.4); TVOL 600 mL; pH(98.6) 7.21 (7.35-7.45)
[2019-06-28 11:56] LABS: CALCIUM 7.6 mg/dL (8.8-10.2); CREATININE 1.7 mg/dL (0.7-1.2); MAGNESIUM 2.6 mg/dL (1.5-2.7); POTASSIUM 5.4 mmol/L (3.5-5.1)
[2019-06-28 12:06] LABS: ALLEN TEST YES; MODALITY VENTILATOR; PCO2(98.6) 53 mmHg (35-45)
--- NOTE | 2019-06-28 12:37 | EKG Report ---
Test Performed on : 06/28/2019 11:15:27 AM Test Reason : hyperkalemia Blood Pressure : / mmHG Vent. Rate : 056 BPM Atrial Rate : 056 BPM P-R Int : 130 ms QRS Dur : 088 ms QT Int : 482 ms P-R-T Axes : 077 049 065 degrees QTc Int : 465 ms Sinus bradycardia. Otherwise normal ECG When compared with ECG of 28-JUN-2019 07:05, (Unconfirmed) No significant change was found Unconfirmed Result
[2019-06-28] MEDS ORDERED: KAYEXALATE PR ONE (13:00)
[2019-06-28] MEDS ORDERED: ATROPINE SYRINGE ONE (13:00)
--- NOTE | 2019-06-28 13:02 | PROVIDER PROGRESS NOTE ---
Progress Note Pulmonary. evaluated. Full dictated consult to follow Respiratory failure and shock. Self extubated in ER after transferred from [facility]. He needs high level of sedation. He is on levophyd that is being titrated down. Please see orders and full consult. Discussed with RN and charge nurse. Evaluation time 32 minutes.
--- NOTE | 2019-06-28 13:41 | Diag Imaging Result Doc PS360 ---
EXAM: CHEST-PORTABLE HISTORY: Intubation TECHNIQUE: Single view COMPARISON: 8:07 AM FINDINGS: Endotracheal tube in good position with the tip located 4 to 5 cm above the kuldeep. Nasogastric tube overlies the esophagus and stomach and is in good position. No change in the lungs. IMPRESSION: Endotracheal and nasogastric tubes in good position Electronically signed by Isreal Naik 06/28/2019 1:38 PM
[2019-06-28] MEDS ORDERED: KAYEXALATE PO ONE (13:42)
[2019-06-28] MEDS: ZYVOX 600 MG/D5W 600 MG/300 ML IVPB IV SCH (13:46)
--- NOTE | 2019-06-28 15:26 | PROVIDER PROGRESS NOTE ---
Progress Note Patient has been seen and examined. A full dictation follow.
--- NOTE | 2019-06-28 19:27 | ECHO REPORT ---
ORDER DATE: 06/28/2019 INDICATION: CHF, history of IV drug use. M-MODE MEASUREMENTS: Left ventricle end diastole: 5.1. Left ventricle end systole: 2.8. Posterior wall: 0.9. Interventricular septum: 0.9. Left atrium: Not measured. SUMMARY OF 2-DIMENSIONAL IMAGIN. Left ventricular function appears to be grossly normal. Ejection fraction is probably in the neighborhood of 60% to 65%. No wall motion abnormality noted. The right ventricle appears to be mildly to moderately enlarged. 2. The aortic valve looks normal. Color flow mapping unremarkable. 3. The inferior vena cava is mildly enlarged. Pulmonary pressure is estimated at 40 to 45 mmHg. 4. The mitral valve is unremarkable. 5. Pulse wave Doppler of mitral inflow shows a "normal" E/A ratio. 6. Tissue Doppler of septal and lateral mitral annulus averages 8 cm. 7. There is no diastolic dysfunction. 8. The pulmonic valve was not visualized. 9. I do not see evidence of pericardial effusion. 10.The right atrium appears to be mildly enlarged. The left atrium also appears to be mildly enlarged. 11.The study was very difficult. The patient was uncooperative. Subcostal views were really the only available views for evaluation. Clinical correlation recommended. cc: MD Tammy Rojo CRNP MTDD
[2019-06-28] MEDS: ATIVAN IV PRN (21:15)
--- NOTE | 2019-06-29 00:21 | HISTORY AND PHYSICAL ---
ADDENDUM: Patient seen and examined by myself. Full note dictated and discussed with nurse practitioner. Patient presented to the hospital apparently yesterday secondary to being short of breath. The patient declined staying in the hospital and was discharged home. He re-presented this morning with a temperature of 100.1 degrees, blood pressure 78/38 to 115/60. Upon arrival, he apparently had been intubated by EMS and extubated himself en route after becoming extremely agitated. He showed agonal respirations, bradycardia and was reintubated. His potassium is elevated at 5.4, creatinine 1.7 and white count at 16. We are going to admit him to the hospital ICU. Ask Pulmonology for evaluation and assistance. We will place him on antibiotics and we will follow. cc: Anderson Pimentel MD
[2019-06-29] MEDS: ZYVOX 600 MG/D5W 600 MG/300 ML IVPB IV SCH ×2 (00:33→12:02)
[2019-06-29] MEDS: ATIVAN IV PRN ×7 (00:44→22:20)
--- NOTE | 2019-06-29 01:10 | HISTORY AND PHYSICAL ---
CHIEF COMPLAINT: Seizure. HISTORY OF PRESENT ILLNESS: This is a 48-year-old gentleman with a history of COPD, hypertension, hyperlipidemia and polysubstance abuse, who presents to the emergency room via EMS after having a seizure. Mr. Cary was admitted to [facility] on June 22 with a COPD exacerbation. After receiving breathing treatments, steroids, and clinically improved. He became agitated and left against medical advice. He then returned to the emergency room on the 27 of June wheezing with a productive cough, It is documented that EMS stated that he had a room air saturation of 84% on their arrival. While in the emergency room he received supplemental oxygen, DuoNebs. The states while in the emergency room he improved with treatment. Dr. Smith walked into the room to discuss the patient being admitted and the patient refused and left against medical advice once again. This looks like it could have been about midnight or 1 in the morning. He then returned via EMS having seizures around 7 a.m. He was then intubated by the emergency room physician and hospitalists have been called for admission. At the time of my exam, the patient is intubated. He is still sedated. There are no family members present so all information is taken from the chart. 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 PAST SURGICAL HISTORY: Back, neck and brain surgery. SOCIAL HISTORY: He lives with a girlfriend. They have been together for over 20 years. He is 2 to 3 pack a day smoker since he was 11. The girlfriend denies any alcohol. He does have a history of illicit drug use. The patient is a [email or web address] who has PTSD. ALLERGIES: Morphine. HOME MEDICATIONS: A list will be obtained by the nursing staff and once verified, we will review and restart as appropriate. REVIEW OF SYSTEMS: Unable to obtain. PHYSICAL EXAMINATION: GENERAL: This is a 48-year-old gentleman who is lying in the stretcher in the emergency room. He is intubated and sedated. VITAL SIGNS: Blood pressure 78/38 with a heart rate of 66, respirations 20, temperature 97.9 degrees with O2 saturations 98% to 100% with respirations per ventilator. EYES: Pupils are 2 mm, sluggish to react. Sclerae are anicteric. NECK: Supple with trachea midline. CARDIOVASCULAR: Regular rate and rhythm. S1 and S2 are appreciated. He does have bilateral lower extremity edema with peripheral pulses palpable. PULMONARY: Breath sounds are coarse with wheezes scattered throughout. Chest rises and falls symmetrically with respiration. GASTROINTESTINAL: Abdomen is soft, nondistended, with bowel sounds in all 4 quadrants. NG tube is in use. GENITOURINARY: [place] is patent to bedside bag with clear yellow urine draining. NEUROLOGIC: The patient is sedated. He is status post RSI. SKIN: Warm and dry. LABORATORIES: 1. WBC is 16 with hemoglobin 13.5, hematocrit 42.7, and platelets 418,000. Sodium is 137, potassium 5.4, BUN 27, creatinine 1.5 with a glucose of 66. Intubation ABGs are pending. Urinalysis reveals 10 to 20 microscopic white blood cells, 20 to 40 microscopic red blood cells with yeast noted. 2. Toxicology reveals methamphetamines and cannabinoids. Blood cultures, urine culture, sputum culture pending. 3. CT of the head revealed postsurgical changes of left frontal craniotomy, chronic appearing ischemic changes. No hemorrhage or mass effect. ASSESSMENT & PLAN: 1. Acute hypoxemic respiratory failure. Requiring intubation Diprivan drip per protocol. Pulmonary consult. 2. Hypotension - Levophed per protocol. 2. Chronic obstructive pulmonary disease acute exacerbation. 3. Seizure. 4. Possible aspiration. Zyvox and Zosyn 5. Leukocytosis. Blood and urine cultures pending. 6. Hyperkalemia. Calcium, Kayexalate retention enema has been ordered. 7. Acute kidney injury in the setting of chronic kidney disease. Consult nephrology, renal dose medications. DC Vancomycin, Start Zyvox. Strict I&O. IV hydration 8. History of hepatitis C. 9. History of bipolar and posttraumatic stress disorder. 10. Chronic Anticoagulation d/t PAD. Check INR - treat accordingly. PPI - Protonix. The patient will be transferred to [facility] ICU. CBC, a total CPK, a CMP and magnesium in the morning. Plan was discussed with Dr. Pimentel. Further treatments pending hospital course. Dictated by KARLA Thomas for Anderson Pimentel MD cc: KARLA Thomas, MD [facility]
[2019-06-29] MEDS: DIPRIVAN 1% 1,000 MG/100 ML BOTTLE IV SCH ×5 (01:37→14:24)
[2019-06-29] MEDS: ZOSYN 3.375 GM in NS 50 ML IV SCH ×4 (03:26→20:15)
[2019-06-29] MEDS: LEVOPHED 8 MG in D5 1/2 NS 250 ML IV SCH (03:46)
[2019-06-29 04:33] LABS: ALLEN TEST YES; BE -2.1 mmoll (-3.0-3.0); BLOOD TYPE ARTERIAL; HCO3-(ACT) 23.3 mmoll (20.0-26.0); METHB 0.6 % (0.0-1.5); O2HB 97.3 % (95.0-99.0); PO2(98.6) 112 mmHg (60-100); SAMPLE BLOOD; SAO2 99.1 % (95.0-100.0); SRATE 16 BPM; THB 12.3 g/dL (11.5-17.4); TVOL 600 mL; pH(98.6) 7.29 (7.35-7.45)
[2019-06-29 04:37] LABS: MODALITY VENTILATOR; PCO2(98.6) 52 mmHg (35-45)
[2019-06-29 06:19] LABS: BASO# 0.01 X1000 (0.0-0.2); BASO% 0.1 % (0.0-0.8); EOS# 0.29 X1000 (0.0-0.7); EOS% 4.1 % (0.0-10.0); HEMATOCRIT 38.2 % (42.0-52.0); HEMOGLOBIN 11.8 g/dL (14.0-18.0); IMM GRAN# 0.02 X1000 (0.0-0.04); IMM GRAN% 0.3 % (0.0-0.5); LYMPH# 0.68 X1000 (1.2-3.4); LYMPH% 9.6 % (20.5-51.1); MCH 28.2 PG (27-31); MCHC 30.9 g/dL (33-37); MCV 91.4 FL (81-99); MONO# 0.75 X1000 (0.11-0.59); MONO% 10.5 % (1.7-9.3); MPV 8.9 FL (7.4-10.4); NEUT# 5.37 X1000 (1.4-6.5); NEUT% 75.4 % (42.2-75.2); PLT 300 X1000 (130-400); RBC 4.18 XMIL (4.7-6.1); RDW 17.4 % (11.5-14.5); WBC 7.12 X1000 (4.8-10.8)
[2019-06-29 07:10] LABS: ALBUMIN 2.7 g/dL (3.5-5.0); CALCIUM 7.3 mg/dL (8.8-10.2); CREATININE 1.6 mg/dL (0.7-1.2); MAGNESIUM 2.3 mg/dL (1.5-2.7); POTASSIUM 4.3 mmol/L (3.5-5.1); TOTAL BILIRUBIN 0.24 mg/dL (0.20-1.00); TOTAL PROTEIN 5.3 g/dL (6.3-8.3)
--- NOTE | 2019-06-29 07:10 | Diag Imaging Result Doc PS360 ---
EXAM: CHEST-PORTABLE 06/29/2019 HISTORY: intubated, ? asp pneumonia TECHNIQUE: AP portable at 0507 COMMENT: There is an endotracheal tube with its tip below the thoracic inlet and an NG tube which passes below the diaphragm. The appearance of the chest has not changed significantly since 06/28/2019. IMPRESSION: Stable chest. Electronically signed by Raphael Germain 06/29/2019 7:07 AM
--- NOTE | 2019-06-29 07:29 | CONSULTATION ---
DATE OF CONSULTATION: 06/28/2019 REQUESTING PROVIDER: KARLA Tohmas REASON FOR CONSULTATION: Respiratory failure. HISTORY OF PRESENT ILLNESS: This is a 48-year-old male with a medical history of COPD, ongoing tobacco abuse, hypertension, hyperlipidemia, seizure, anxiety, bipolar, possible obstructive sleep apnea, and medical noncompliance. He presented to the [place] ER this morning with seizure activity and altered mental status. He apparently presented to the ER last night already, but he left AMA as he refused admission for COPD. He was intubated in the ER. Blood work showed leukocytosis, acute respiratory acidosis, hypokalemia, and renal insufficiency. Drug screen showed positive for methamphetamines and cannabinoids. The patient was admitted to the ICU in our facility, but on the way of transferring he apparently extubated himself. He was reintubated with further sedation in the ER. The patient is lying in bed with no acute distress noted at this time. He is on Diprivan and norepinephrine drip. His vital signs are stable. The patient's brother, son, and are at the bedside. They report the patient has been sick for several weeks, especially in the last 3 days he has worsening shortness of breath, a productive cough, wheezing, insomnia, and anxiety. The patient is not on home oxygen, but he has to use his [id number]'s oxygen to help his breathing at times. He apparently visited ER [place] last week with COPD exacerbation. He was been admitted at that time, but he only stayed in the hospital overnight as he became agitated. Family reports that the patient believes only he can treat himself. PAST MEDICAL HISTORY: 1. COPD. 2. Ongoing tobacco abuse. 3. Hypertension. 4. Hyperlipidemia. 5. Seizures. 6. History of spinal cord or brain injury. 7. Anxiety and bipolar. 8. Possible obstructive sleep apnea. The patient [facility], but so far still did not get the sleep study done yet. He does have witnessed snoring, severely. 9. Medical noncompliance. 10. Polysubstance abuse. Family reports chronic marijuana use. Drug screen showed positive for methamphetamines. PAST SURGICAL HISTORY: The patient's reported that the patient has some kind of extremity surgery, back surgery, neck surgery x2, and brain surgery. SOCIAL HISTORY: The patient is and lives at home with his family. He is a heavy smoker. He used to smoke 2 packs per day, but cut down recently due to severe illness. He did apply for chantix before via the[facility] system for smoking cession, but did not get approved. Family reports no history of alcohol or illicit drug use, but patient does smoke marijuana whenever he can obtained for over 30 years. Drug screen from this hospital visit also showed positive for methamphetamines. FAMILY HISTORY: Unknown. ALLERGIES: Morphine. REVIEW OF SYSTEMS: Unable to be obtained. PHYSICAL EXAMINATION: Vital Signs: Temperature 97.8 degrees, blood pressure 129/86, pulse 57, respiratory rate 18, oxygen saturation 95% on AC mechanical ventilator with spontaneous rate 18, FiO2 40%, tidal volume 600, and PEEP 5. General: Intubated, lying in bed with no acute distress noted. HEENT: Atraumatic, normocephalic. Trachea midline. ET tube in place. Mucosa pink and slightly dry. Respiratory: Mechanical ventilated. Symmetrical excursion. Clear to auscultation bilaterally. Cardiovascular: Regular rate and rhythm. Gastrointestinal: Soft, obese. Extremities: No edema, no cyanosis, no clubbing. Neurologic: Sedated. ASSESSMENT: This is a 48-year-old male with a medical history of chronic obstructive pulmonary disease, ongoing tobacco abuse, hypertension, hyperlipidemia, seizures, anxiety, bipolar disorder, possible obstructive sleep apnea, and medical noncompliance and polysubstance abuse. He has been admitted to the intensive care unit with seizure, altered mental status, and chronic obstructive pulmonary disease exacerbation. 1. Acute respiratory failure. 2. Chronic obstructive pulmonary disease exacerbation. 3. Ongoing tobacco abuse. 4. Seizure. 5. Shock. PLAN: 1. Continue AC mechanical ventilator. We will start weaning trials when appropriate. 2. Continue pressors as indicated. Continue antibiotics. Start PRN bronchodilators. 3. Follow up with CBC, CMP, ABG, blood cultures, sputum culture, urine culture, and chest x-ray. 4. Continue GI and DVT prophylaxis. 5. Smoking cessation education when appropriate. 6. Further recommendations pending hospital course. Thank you for the courtesy of this consult. Dictated by KARLA Emanuel for Ilir Jackson MD cc: KARLA Emanuel, MD [facility]
[2019-06-29] MEDS: PROTONIX IV SCH ×2 (07:38→20:05)
[2019-06-29] MEDS: SODIUM CHLORIDE 0.9% INJ SCH (07:38)
[2019-06-29] MEDS: DUONEB (A & A) INH PRN (07:50)
--- NOTE | 2019-06-29 08:50 | PROGRESS NOTE ---
DATE: 06/29/2019 SUBJECTIVE: This patient is still on mechanical ventilation and sedated. He was admitted due to hypoxemic and hypercarbic respiratory failure, COPD exacerbation. It looks like he has a history of seizures and apparently he was brought to the emergency room via EMS after having seizures. He is on mechanical ventilation and sedated. He is on pressors. For me it looks like he has probably some infiltrate in the left lower lobe, probably this patient is septic as well since his blood pressure was low and now on pressors and his leukocytosis. OBJECTIVE: Vital Signs: Temperature 99.1 degrees, pulse 155, respiratory rate 16, blood pressure 115//69, oxygen saturation 99 on mechanical ventilation. HEENT: Head normocephalic. No new trauma. PERRLA. He has a forehead scar with some bony abnormality, which is chronic from probably previous craniotomy. Neck: Supple. Chest: Decreased breath sounds globally with prolonged expiratory phase. Some faint expiratory wheezing. Coarse breath sounds bilaterally. Abdomen: Soft, nontender, nondistended. No hepatosplenomegaly. Extremities: No edema, no clubbing, no cyanosis. Neurological: This patient is on mechanical ventilation and sedated. LABORATORY: WBC 7.1, hemoglobin 11.8, hematocrit 38.2, platelets 300,000. PH 7.29, pCO2 52, PO2 112. Pending CMP, magnesium, PT with INR and CK. ASSESSMENT AND PLAN: 1. Acute hypoxemic and hypercarbic respiratory failure due to chronic obstructive pulmonary disease exacerbation and possible left lower lobe pneumonia. He has been placed on antibiotics Zosyn and Zyvox. I will continue with same management for now. It looks like this patient has been on warfarin and his INR is supratherapeutic, but I am not quite sure why he needs to be on anticoagulation. I will continue with same management for now on mechanical ventilation. Pulmonary Department on board. 2. Chronic obstructive pulmonary disease exacerbation. Continue with same treatment. 3. Possible left lower lobe pneumonia, pending x-ray reading at this moment, but this patient also is on pressors and antibiotics. 4. Septic shock, likely due to pneumonia, aware. 5. Hyperkalemia. His potassium level was 5.4 yesterday. Pending new results today. 6. Acute kidney injury. This patient has been placed on normal saline and also vasopressors. Hopefully, the kidney function will recover. 7. History of hepatitis C. Aware. 8. History of bipolar disorder or post traumatic stress disorder aware. 9. Apparently this patient has a seizure and was brought to the emergency department via EMS. I do not see any seizure medication listed on his home medications. We will monitor for now. We will continue with as needed medications. I do not have any family members at the bedside. 10. Polysubstance abuse, aware. 11. Tobacco abuse. As per the social history he is 2 to 3 packs a day smoker since he was 11. 12. Urine toxicology showed the possibility of methamphetamine and cannabinoids. CRITICAL CARE TIME: 32 minutes. cc: Jesús Paul MD
[2019-06-29 09:46] LABS: INR 6.56
[2019-06-29 09:47] LABS: PROTIME 59.9 Seconds (11.0-16.0)
[2019-06-29] MEDS: SODIUM BICARBONATE 8.4% 100 MEQ in D5W 1,000 ML IV SCH ×2 (11:00→22:19)
[2019-06-29] MEDS: DUONEB (A & A) INH SCH ×4 (11:34→23:35)
[2019-06-29] MEDS: SOLU-MEDROL IV SCH ×2 (12:02→16:29)
--- NOTE | 2019-06-29 14:53 | EKG Report ---
Test Performed on : 06/29/2019 2:51:37 PM Test Reason : Bradycardia Blood Pressure : / mmHG Vent. Rate : 075 BPM Atrial Rate : 075 BPM P-R Int : 124 ms QRS Dur : 090 ms QT Int : 412 ms P-R-T Axes : 071 017 064 degrees QTc Int : 460 ms Normal sinus rhythm. Normal ECG When compared with ECG of 28-JUN-2019 11:15, (Unconfirmed) No significant change was found Confirmed by Mac FATIMA, Tyron Bueno ([id number]) on 06/29/2019 7:03:41 PM
--- NOTE | 2019-06-29 16:59 | NEPHROLOGY CONSULTATION ---
DATE: 06/29/2019 REASON FOR CONSULTATION: Acute kidney injury. HISTORY OF PRESENT ILLNESS: Obtained entirely from the chart. Mr. Cary is a 48-year-old white male with multiple medical problems including close head trauma, bipolar disorder, seizure disorder, hypertension, COPD. He was recently hospitalized in this facility but left AMA on the . He had been admitted with respiratory symptoms and diagnosis of COPD exacerbation. He returned to the emergency room on the complaining of wheezing and coughing and was hypoxemic. He left and returned again acutely ill by EMS. Rapidly intubated, hypotensive. He was treated with volume resuscitation, vasopressor support, empiric broad-spectrum antibiotic therapy. He was transferred to [facility] for further care. Echocardiogram found normal LV function and no other acute findings except a pulmonary pressure of 40 45. In this context, creatinine was 1.5 and potassium 5.4. PH was 7.2 but pCO2 was 70 with bicarbonate of 23. PAST MEDICAL HISTORY: As above. HOME MEDICATIONS: Include verapamil, zolpidem, atenolol, warfarin, prednisone, albuterol ipratropium, Omnicef. ALLERGIES: Morphine. SOCIAL HISTORY: He has a girlfriend. Heavy smoker. FAMILY HISTORY: Unobtainable. REVIEW OF SYSTEMS: Unobtainable. PHYSICAL EXAMINATION: Vital Signs: Blood pressure 126/79, heart rate 65, respirations 29. Intake 3 L. Output 2 L. General: No acute distress. Skin: Warm and dry. Conjunctivae are pink. Pupils are 1 mm and symmetrical. Oropharynx is clear. Neck: Neck veins are not distended. Trachea is midline. Heart: Regular, without gallops or murmurs. Lungs: Equal. No crackles or wheezes. Abdomen: Soft, nontender. Bowel sounds present. Extremities: No edema, clubbing or cyanosis. IMPRESSION: 1. Acute kidney injury. Trajectory of his BUN and creatinine did not suggest acute tubular injury. He is in mildly positive fluid balance but has good urine output. Continue IV fluids as ordered. 2. We will observe. cc: Fabrice Gomez MD
[2019-06-29] MEDS: FENTANYL 1,000 MICROGM in NS 80 ML IV SCH ×3 (17:45→22:19)
[2019-06-29] MEDS: TAMIFLU PO SCH (20:05)
--- NOTE | 2019-06-29 20:52 | PULMONOLOGY PROGRESS NOTE ---
DATE: 06/29/2019 SUBJECTIVE: The patient is sedated, on mechanical ventilation. OBJECTIVE: Maximum temperature in the last 24 hours is 100.1 degrees. Current temperature 99.9 degrees, blood pressure 122/71, heart rate 65, respiratory rate 19, oxygen saturation 98%. HEENT: Pupils are equal. Oropharynx appears clear. Neck is supple. Chest reveals diffuse wheezing throughout all lung hector. Cardiac exam: Regular rate. Normal S1, normal S2. Abdomen is soft, with diminished bowel sounds. Extremities are slightly cool to the touch. LABORATORY DATA: Influenza screen was sent by this practitioner, which is positive for influenza A. White blood count 7.12, hemoglobin 11.8, platelet count 300,000. Arterial blood gas reveals a pH of 7.29, pCO2 of 52, pO2 of 112. Sodium 138, potassium 4.3, chloride 104, bicarbonate 22, BUN 28, creatinine 1.6. Creatine kinase 665. DIAGNOSTIC DATA: Chest x-ray reveals mild vascular prominence. IMPRESSION: A 48-year-old with: 1. Influenza. 2. Hypoxemic respiratory failure. 3. Acute hypercapnic respiratory failure. 4. Acute kidney injury. 5. History of seizure prior to emergency room admission. 6. Bipolar disorder. 7. Polysubstance abuse. 8. Tobacco abuse with ongoing tobacco addiction/nicotine addiction. 9. Rhabdomyolysis. PLAN: 1. Add bronchodilators for COPD exacerbation. 2. Add steroids for COPD exacerbation. 3. Add Tamiflu for influenza. 4. Discontinue propofol. The patient had episode of bradycardia earlier today. 5. Overall prognosis is guarded. Critical care time: 50 minutes cc: Anibal Watson MD MTDD
[2019-06-30] MEDS: SOLU-MEDROL IV SCH ×4 (00:05→17:07)
[2019-06-30] MEDS: ATIVAN IV PRN ×4 (00:25→20:07)
[2019-06-30] MEDS: FENTANYL 1,000 MICROGM in NS 80 ML IV SCH ×10 (01:25→22:55)
[2019-06-30] MEDS: ZOSYN 3.375 GM in NS 50 ML IV SCH ×4 (03:29→20:07)
[2019-06-30] MEDS: DUONEB (A & A) INH SCH ×5 (03:35→19:38)
[2019-06-30 04:45] LABS: ALLEN TEST YES; BE 0.1 mmoll (-3.0-3.0); BLOOD TYPE ARTERIAL; METHB 1.3 % (0.0-1.5); O2(CT) 18.7 mL/dL (15.0-23.0); O2HB 96.9 % (95.0-99.0); PO2(98.6) 153 mmHg (60-100); SAMPLE BLOOD; SRATE 10 BPM; THB 13.5 g/dL (11.5-17.4); TVOL 700 mL; pH(98.6) 7.21 (7.35-7.45)
[2019-06-30 05:02] LABS: MODALITY VENTILATOR; PCO2(98.6) 75 mmHg (35-45)
[2019-06-30 05:49] LABS: INR 5.51; PROTIME 52.1 Seconds (11.0-16.0)
[2019-06-30 05:51] LABS: BASO# 0.01 X1000 (0.0-0.2); BASO% 0.3 % (0.0-0.8); HEMATOCRIT 41.6 % (42.0-52.0); HEMOGLOBIN 12.5 g/dL (14.0-18.0); LYMPH# 0.24 X1000 (1.2-3.4); LYMPH% 6.2 % (20.5-51.1); MCH 28.1 PG (27-31); MCV 93.5 FL (81-99); MONO# 0.13 X1000 (0.11-0.59); MONO% 3.4 % (1.7-9.3); MPV 8.9 FL (7.4-10.4); NEUT# 3.48 X1000 (1.4-6.5); NEUT% 90.1 % (42.2-75.2); PLT 281 X1000 (130-400); RBC 4.45 XMIL (4.7-6.1); RDW 17.9 % (11.5-14.5); WBC 3.86 X1000 (4.8-10.8)
[2019-06-30 06:27] LABS: ALB/GLOB RATIO 1.4; ALBUMIN 3.3 g/dL (3.5-5.0); CALCIUM 7.8 mg/dL (8.8-10.2); CREATININE 1.6 mg/dL (0.7-1.2); PHOSPHORUS 5.3 mg/dL (2.7-4.5); POTASSIUM 4.6 mmol/L (3.5-5.1); TOTAL BILIRUBIN 0.18 mg/dL (0.20-1.00); TOTAL PROTEIN 5.7 g/dL (6.3-8.3)
--- NOTE | 2019-06-30 08:09 | Diag Imaging Result Doc PS360 ---
EXAM: CHEST-1 VIEW INDICATION: SOB TECHNIQUE: One view COMPARISON: 06/29/2019 FINDINGS: Support tubes and lines are in stable positions. At the lung volumes are slightly lower, which is causing central vascular crowding. There may be a component of mild pulmonary venous congestion. No new consolidation is identified, otherwise. Cardiac silhouette is stable. IMPRESSION: Slightly lower lung volumes with central vascular crowding versus mild pulmonary venous congestion. Electronically signed by Isidoro Fine 06/30/2019 8:07 AM
[2019-06-30] MEDS ORDERED: LASIX IV ONE (08:36)
[2019-06-30] MEDS: SODIUM BICARBONATE 8.4% 100 MEQ in D5W 1,000 ML IV SCH ×2 (08:40→20:05)
[2019-06-30] MEDS: PROTONIX IV SCH ×2 (08:41→20:07)
[2019-06-30] MEDS: TAMIFLU PO SCH ×2 (08:41→20:07)
--- NOTE | 2019-06-30 10:48 | PROGRESS NOTE ---
DATE: 06/30/2019 SUBJECTIVE: Patient is still on mechanical ventilation, he is sedated, he had an episode of bradycardia yesterday so the propofol was discontinued. He is still hypercarbic. He has a positive result that showed influenza A positive. He has a history of a COPD, possible drug abuse and tobacco abuse. We will continue with the same management for now. He has rhabdomyolysis as well. OBJECTIVE: Vital Signs: Temperature 98.8 degrees, pulse 80, respiratory rate 10, blood pressure 129/63, oxygen saturation 99 on mechanical ventilation, 80% oxygen flow. HEENT: Head normocephalic. No new trauma. PERRLA. He has a forehead scar with some bony abnormality which is chronic from probably previous craniotomy. Neck: Supple. Chest: Decreased breath sounds mostly at the bases with some crepitus at the level of the left lower thoracic area. Abdomen: Soft, nontender, nondistended. No hepatosplenomegaly. Extremities: Upper extremity edema, probably 1 to 2+. No lower extremity edema. No clubbing. No cyanosis. Neurological: The patient is on mechanical ventilation and this patient is sedated. LABORATORY DATA: WBC 3.8, hemoglobin 12.5, hematocrit 41.6, platelets 281,000. INR 5.5, pCO2 75/ sodium 143, potassium 4.6, chloride 103, bicarbonate 29, BUN 21, creatinine 1.6, glucose 170, calcium 7.8, phosphorus 5.3, magnesium is 2, albumin 3.3. ASSESSMENT AND PLAN: 1. Acute hypoxemic and hypercarbic respiratory failure due to chronic obstructive pulmonary disease exacerbation and influenza, possible left lower lobe pneumonia. Continue with same management. He is on mechanical ventilation, antibiotics, Tamiflu now. Pulmonary department following this patient closely. 2. Chronic obstructive pulmonary disease exacerbation. Continue with same treatment. 3. Influenza A positive. Continue with Tamiflu. He is on mechanical ventilation. 4. Possible left lower lobe pneumonia. This patient has been on pressors but at this moment is on hold. Blood pressure seems to be stable now. 5. Septic shock as above, likely due to a combination of pneumonia and influenza. 6. Hyperkalemia. Potassium level is 4.6 today. 7. Acute kidney injury. BUN is getting better. Creatinine about the same compared with yesterday. He has urine output of 1275. 8. History of hepatitis C. Aware. 9. History of bipolar disorder, posttraumatic stress disorder. Aware. 10. Apparently this patient had a seizure before coming to the emergency department. I do not see any seizure medication listed on his home medications, so probably this is new. We will keep an eye on him. 11. Polysubstance abuse. Urine toxicology showed methamphetamine and cannabinoids use. 12. Tobacco abuse. As per the social history he is 2 to 3 pack a day smoker since he was 11. 13. Rhabdomyolysis. I will check the CK level in the morning. Continue with the same management for now. 14. Nutritional status. I will start feeding this patient through the NG tube today, let us see how he does. 15. No family members at the bedside. His prognosis is guarded. I will talk to the family today. His INR is supratherapeutic, and he is on warfarin at home. I am not quite sure why. CRITICAL CARE TIME: 35 minute. cc: Jesús Paul MD
[2019-06-30] MEDS: LASIX IV SCH ×2 (14:24→20:06)
--- NOTE | 2019-06-30 21:50 | NEPHROLOGY PROGRESS NOTE ---
DATE: 06/30/2019 SUBJECTIVE: He remains sedated on the ventilator. OBJECTIVE: Vital Signs: Blood pressure 129/63, heart rate 10, respiration 18, afebrile. Intake 3.9 L. Output 1.3 L. General: No acute distress. Skin is warm and dry. Neck veins are not appreciated. Cardiovascular: Heart is regular. Lungs: Are equal. No crackles. Abdomen: Soft, nontender. Bowel sounds are present. Extremities: No edema, clubbing, or cyanosis. IMPRESSION: Acute kidney injury. Baseline creatinine 1.1 as recently as the 4th. Acceptable urine output. Electrolytes acid-base are well managed. No changes. cc: Fabrice Gomez MD
--- NOTE | 2019-06-30 22:32 | PULMONOLOGY PROGRESS NOTE ---
DATE: 06/30/2019 SUBJECTIVE: The patient is on fentanyl. He is heavily sedated. He is not currently breathing above the ventilator. OBJECTIVE: Vital Signs: Maximum temperature in the last 24 hours is 99.9 degrees, BP 135/66, heart rate 80, respiratory rate currently 20, oxygen saturation 95%. HEENT: Pupils are equal and reactive. Oropharynx appears clear. Neck: Supple. Chest: Reveals better air flow bilaterally with decrease in wheezing. Cardiac: S1-S2. Abdomen: Soft with diminished bowel sounds. Extremities: Reveal 1 to 2+ edema in the arms and legs. LABORATORIES: Arterial blood gas on 100% FiO2 revealed a pH of 7.21, pCO2 of 75, pO2 of 153. His FiO2 has been decreased to 55%. Sodium 143, potassium 4.6, chloride 103, bicarbonate 29, BUN 21, creatinine 1.6. White blood count 3.86, hemoglobin 12.5, platelet count 281,000. Chest x-ray reveals shallow inspiration with vascular crowding and mild infiltrates. IMPRESSION: A 48-year-old with: 1. Influenza. 2. Hypoxemic respiratory failure. 3. Acute hypercapnic respiratory failure. 4. Acute kidney injury. 5. Seizure on presentation to the emergency room. 6. Bipolar disorder. 7. Polysubstance abuse. 8. Tobacco abuse with ongoing tobacco addiction/nicotine addiction. 9. Mild rhabdomyolysis. DISCUSSION: A 48-year-old with problems outlined above. He is moving air better in his lungs with decreased wheezing. PLAN: 1. Continue Tamiflu for influenza. 2. Continue current ventilatory support. We will evaluate weaning fentanyl and mechanical ventilation tomorrow. 3. Continue steroids. 4. Continue fentanyl and avoid propofol. The patient's bradycardia has resolved with discontinuing propofol. 5. Educate about the importance of smoking and drug cessation if he survives this ventilatory course. cc: Anibal Watson MD
[2019-07-01] MEDS: FENTANYL 1,000 MICROGM in NS 80 ML IV SCH ×8 (02:01→23:58)
[2019-07-01] MEDS: DUONEB (A & A) INH SCH ×5 (03:34→23:14)
[2019-07-01] MEDS: LASIX IV SCH ×3 (04:00→20:56)
[2019-07-01] MEDS: ZOSYN 3.375 GM in NS 50 ML IV SCH ×4 (04:00→20:56)
[2019-07-01] MEDS: ATIVAN IV PRN ×10 (04:01→23:57)
[2019-07-01 05:02] LABS: ALLEN TEST YES; BE 17.1 mmoll (-3.0-3.0); BLOOD TYPE ARTERIAL; HCO3-(ACT) 38.2 mmoll (20.0-26.0); METHB 1.1 % (0.0-1.5); O2(CT) 20.5 mL/dL (15.0-23.0); O2HB 95.1 % (95.0-99.0); PO2(98.6) 82 mmHg (60-100); SAMPLE BLOOD; SAO2 97.2 % (95.0-100.0); SRATE 10 BPM; THB 15.3 g/dL (11.5-17.4); TVOL 700 mL; pH(98.6) 7.32 (7.35-7.45)
[2019-07-01 05:12] LABS: MODALITY VENTILATOR; PCO2(98.6) 95 mmHg (35-45)
[2019-07-01] MEDS: SOLU-MEDROL IV SCH ×4 (06:05→17:23)
[2019-07-01 06:39] LABS: BASO# 0.02 X1000 (0.0-0.2); BASO% 0.2 % (0.0-0.8); EOS# 0.03 X1000 (0.0-0.7); EOS% 0.3 % (0.0-10.0); HEMATOCRIT 41.4 % (42.0-52.0); HEMOGLOBIN 12.4 g/dL (14.0-18.0); IMM GRAN# 0.02 X1000 (0.0-0.04); IMM GRAN% 0.2 % (0.0-0.5); LYMPH# 0.66 X1000 (1.2-3.4); LYMPH% 6.6 % (20.5-51.1); MCH 28.1 PG (27-31); MCV 93.9 FL (81-99); MONO# 1.05 X1000 (0.11-0.59); MONO% 10.4 % (1.7-9.3); MPV 8.6 FL (7.4-10.4); NEUT# 8.29 X1000 (1.4-6.5); NEUT% 82.3 % (42.2-75.2); PLT 279 X1000 (130-400); RBC 4.41 XMIL (4.7-6.1); RDW 17.4 % (11.5-14.5); WBC 10.07 X1000 (4.8-10.8)
[2019-07-01 07:03] LABS: INR 5.62
--- NOTE | 2019-07-01 07:27 | PROGRESS NOTE ---
DATE: 07/01/2019 SUBJECTIVE: This patient is still on mechanical ventilation and sedated. The episode of bradycardia resolved after the discontinuation of propofol. He is still hypercarbic. Probably, we are going to start weaning this patient off fentanyl and ventilator today, but also we will try to start nutrition through the NG tube. OBJECTIVE: Vital Signs: Temperature 99.4 degrees, pulse 76, respiratory rate 15, blood pressure 163/73, oxygen saturation 95% on mechanical ventilation, 55% FiO2. HEENT: Head normocephalic. No new trauma. PERRLA. He has a forehead scar with some bony abnormality, which is chronic and probably from previous craniotomy. Neck: Supple. Chest: Decreased breath sounds at the bases with mild crepitus. Abdomen: Soft, nontender, nondistended. No hepatosplenomegaly. Extremities: Upper extremity edema 2+. No lower extremity edema. No clubbing. No cyanosis. Neurological: The patient is on mechanical ventilation and sedated. LABORATORY DATA: WBC 10, hemoglobin 12.4, hematocrit 41.4, platelets 279,000. PCO2 is 95. Pending CMP. ASSESSMENT AND PLAN: 1. Acute hypoxemic and hypercarbic respiratory failure due to chronic obstructive pulmonary disease, influenza, and possible left lower lobe pneumonia. Continue with the same management. He is on mechanical ventilation, antibiotics, and Tamiflu. Pulmonary Department is following this patient closely. 2. Chronic obstructive pulmonary disease exacerbation. Continue with the same treatment. 3. Influenza A positive. Continue with Tamiflu. He is on mechanical ventilation. 4. Possible left lower lobe pneumonia. This patient has been on pressors, but at this moment, his blood pressure has been more stable, so no pressors. 5. Septic shock as above, likely a combination of pneumonia and influenza. 6. Pneumonia and influenza. 7. Hyperkalemia. Pending lab work. Normal yesterday. 8. Acute kidney injury. He received a dose of Lasix yesterday. Good urine output. Nephrology on board. 9. History of hepatitis C. Aware. 10. History of bipolar disorder, posttraumatic stress disorder. Aware. 11. Possible seizure before coming to the emergency room. As per the , she believes this patient had a seizure, but she is not sure about it. 12. Polysubstance abuse. Urine toxicology showed methamphetamine and cannabinoids. 13. Tobacco abuse. As per the , he smokes 1 pack a day since he was a kid. 14. Rhabdomyolysis. Pending CK level at this moment. Continue with the same management. 15. Nutritional status. I will start feeding this patient through the nasogastric tube. 16. Supratherapeutic INR. I am not sure why this patient is on blood thinners, but I will continue to monitor. I will discuss this with the family. CRITICAL CARE TIME: 35 minutes. cc: Jesús Paul MD
[2019-07-01 07:46] LABS: ALB/GLOB RATIO 1.3; ALBUMIN 3.2 g/dL (3.5-5.0); CALCIUM 7.7 mg/dL (8.8-10.2); CREATININE 1.9 mg/dL (0.7-1.2); MAGNESIUM 1.9 mg/dL (1.5-2.7); PHOSPHORUS 3.5 mg/dL (2.7-4.5); POTASSIUM 3.8 mmol/L (3.5-5.1); TOTAL BILIRUBIN 0.16 mg/dL (0.20-1.00); TOTAL PROTEIN 5.6 g/dL (6.3-8.3)
--- NOTE | 2019-07-01 07:47 | Diag Imaging Result Doc PS360 ---
EXAM: CHEST-1 VIEW HISTORY: SOB TECHNIQUE: Single view COMPARISON: 06/30/2019 FINDINGS: No change in the endotracheal tube or nasogastric tube. Poor inspiratory effort. No cardiomegaly. Mild increased interstitial markings in the lung bases. These are slightly more prominent on the current study. Small right pleural effusion. IMPRESSION: Mild interval worsening Electronically signed by Isreal Naik 07/01/2019 7:45 AM
[2019-07-01] MEDS: PROTONIX IV SCH ×2 (08:17→20:56)
[2019-07-01] MEDS: SODIUM BICARBONATE 8.4% 100 MEQ in D5W 1,000 ML IV SCH (08:17)
[2019-07-01] MEDS: SODIUM CHLORIDE 0.9% INJ SCH (08:17)
[2019-07-01] MEDS: TAMIFLU PO SCH ×2 (08:18→23:58)
[2019-07-01 09:06] LABS: CK-MB 3.46 ng/mL (0.0-5.0)
[2019-07-01] MEDS: D5W 1,000 ML IV SCH ×2 (09:27→23:59)
[2019-07-01] MEDS: PRECEDEX 200 MICROGM in NS 48 ML IV SCH ×5 (11:09→23:59)
[2019-07-01] MEDS: OFIRMEV 1000 MG/ISOTONIC SOLN 1,000 MG/100 ML BOTTLE IV PRN (13:36)
--- NOTE | 2019-07-01 14:44 | PULMONOLOGY PROGRESS NOTE ---
DATE: 07/01/2019 SUBJECTIVE: The patient is sedated. He has periods where he will sit up in reach for the endotracheal tube. OBJECTIVE: Vital Signs: Patient's maximum temperature in the last 24 hours is 100 degrees, blood pressure 154/73, heart rate 75, respiratory rate 11, oxygen saturation 96%. HEENT: Pupils are equal and reactive. Oropharynx appears clear. Neck: Supple. Chest: Reveals decreased wheezing. Breath sounds are diminished. He has prolonged expiratory phase extending up to 8 seconds. Abdomen: Soft with occasional bowel sounds. Extremities: Reveal upper extremity edema greater than lower extremity edema. LABORATORIES: Arterial blood gas reveals a pH of 7.32, pCO2 95, PO2 of 82. White blood count 10.07, hemoglobin 12.4, platelet count 279,000. Sodium 148, potassium 3.8, chloride 98, bicarbonate 38, BUN 31, creatinine 1.9. Chest x-ray reveals mild increased interstitial markings in the base which are slightly more prominent than 06/30/2019 but inspiration is less. IMPRESSION: 48-year-old with 1. Influenza. 2. Chronic obstructive pulmonary disease exacerbation. 3. Hypoxemic and hypercapnic respiratory failure. 4. Acute kidney injury. 5. Seizure disorder. 6. Bipolar disorder. 7. Polysubstance abuse. 8. Mild rhabdomyolysis with decreasing creatinine. 9. Tobacco use with ongoing nicotine addiction at the time of admission. DISCUSSION: A 48-year-old with problems outlined above. He is difficult to evaluate because he requires significant sedation for comfort and when this is weaned he tries to pull the endotracheal tube. He is currently receiving a significant amount of fentanyl. I will transition him over to Precedex in an attempt to facilitate weaning and extubation. PLAN: 1. Continue Tamiflu for influenza. 2. Transition patient from fentanyl to Precedex to aid in weaning. 3. Initiate steroid weaning given decreasing bronchospasm. 4. Agree with initiation of tube feeds. 5. Educate patient about the importance of smoking cessation and drug cessation prior to discharge if he survives this ICU stay. TIME SPENT: In critical care management, 35 minutes. cc: Anibal Watson MD
[2019-07-01] MEDS ORDERED: CARDIZEM ONE (15:42)
--- NOTE | 2019-07-01 15:44 | Diag Imaging Result Doc PS360 ---
EXAM: CHEST-PORTABLE HISTORY: poss. extubation TECHNIQUE: Single view COMPARISON: 5:29 AM FINDINGS: The nasogastric tube has been removed. The endotracheal tube remains. No other interval change. IMPRESSION: Endotracheal tube in good position. Electronically signed by Isreal Naik 07/01/2019 3:41 PM
[2019-07-01] MEDS ORDERED: CARDIZEM 100 MG/NS 100 MG/100 ML IVPB IV SCH (15:45)
[2019-07-01] MEDS ORDERED: LANOXIN IV ONE (15:46)
[2019-07-01] MEDS ORDERED: CARDIZEM IV ONE (15:59)
[2019-07-01] MEDS ORDERED: LASIX ONE (22:43)
[2019-07-02] MEDS: SOLU-MEDROL IV SCH ×3 (02:10→18:34)
[2019-07-02] MEDS: ATIVAN IV PRN ×6 (02:15→23:19)
[2019-07-02] MEDS: ZOSYN 3.375 GM in NS 50 ML IV SCH ×4 (03:13→20:17)
[2019-07-02] MEDS: DUONEB (A & A) INH SCH ×7 (03:41→23:27)
[2019-07-02] MEDS: LASIX IV SCH (04:10)
[2019-07-02] MEDS: FENTANYL 1,000 MICROGM in NS 80 ML IV SCH ×4 (04:11→09:39)
[2019-07-02] MEDS: PRECEDEX 200 MICROGM in NS 48 ML IV SCH ×3 (04:11→08:36)
[2019-07-02 05:11] LABS: ALLEN TEST YES; BLOOD TYPE ARTERIAL; HCO3-(ACT) 40.3 mmoll (20.0-26.0); METHB 0.7 % (0.0-1.5); O2(CT) 18.7 mL/dL (15.0-23.0); O2HB 91.2 % (95.0-99.0); PO2(98.6) 60 mmHg (60-100); SAMPLE BLOOD; SAO2 93.1 % (95.0-100.0); SRATE 10 BPM; THB 14.6 g/dL (11.5-17.4); TVOL 700 mL; pH(98.6) 7.39 (7.35-7.45)
[2019-07-02 05:14] LABS: MODALITY VENTILATOR; PCO2(98.6) 83 mmHg (35-45)
[2019-07-02 06:13] LABS: BASO# 0.03 X1000 (0.0-0.2); BASO% 0.3 % (0.0-0.8); HEMATOCRIT 41.7 % (42.0-52.0); HEMOGLOBIN 12.6 g/dL (14.0-18.0); IMM GRAN# 0.03 X1000 (0.0-0.04); IMM GRAN% 0.3 % (0.0-0.5); LYMPH# 1.37 X1000 (1.2-3.4); LYMPH% 14.6 % (20.5-51.1); MCH 28.1 PG (27-31); MCHC 30.2 g/dL (33-37); MCV 93.1 FL (81-99); MONO# 0.89 X1000 (0.11-0.59); MONO% 9.5 % (1.7-9.3); MPV 8.9 FL (7.4-10.4); NEUT# 7.07 X1000 (1.4-6.5); NEUT% 75.3 % (42.2-75.2); PLT 268 X1000 (130-400); RBC 4.48 XMIL (4.7-6.1); RDW 16.5 % (11.5-14.5); WBC 9.39 X1000 (4.8-10.8)
[2019-07-02 06:42] LABS: ALB/GLOB RATIO 1.4; ALBUMIN 3.3 g/dL (3.5-5.0); CALCIUM 8.2 mg/dL (8.8-10.2); CREATININE 1.7 mg/dL (0.7-1.2); MAGNESIUM 2.2 mg/dL (1.5-2.7); PHOSPHORUS 3.2 mg/dL (2.7-4.5); POTASSIUM 3.5 mmol/L (3.5-5.1); TOTAL BILIRUBIN 0.4 mg/dL (0.20-1.00); TOTAL PROTEIN 5.6 g/dL (6.3-8.3)
[2019-07-02 07:06] LABS: CK INDEX 1.1 (0.0-2.5); CK-MB 2.9 ng/mL (0.0-5.0)
--- NOTE | 2019-07-02 07:17 | Diag Imaging Result Doc PS360 ---
EXAM: CHEST-1 VIEW 07/02/2019 HISTORY: SOB TECHNIQUE: AP portable at 0512 COMMENT: There is an endotracheal tube with its tip slightly below the thoracic inlet. There is an NG tube with its tip in the fundus of the stomach. There is minimal atelectasis or pneumonia over the left base. The opacity previously present in the right base has cleared. Otherwise there has been no significant change since 07/01/2019. IMPRESSION: Minimal left lower lobe atelectasis. Electronically signed by Raphael Germain 07/02/2019 7:15 AM
--- NOTE | 2019-07-02 07:29 | EKG Report ---
Test Performed on : 07/01/2019 3:32:17 PM Test Reason : ICU. NO EKG ORDER FOR MUSE Blood Pressure : / mmHG Vent. Rate : 162 BPM Atrial Rate : 153 BPM P-R Int : 000 ms QRS Dur : 088 ms QT Int : 272 ms P-R-T Axes : 000 007 181 degrees QTc Int : 446 ms Atrial fibrillation. with rapid ventricular response. with premature ventricular or aberrantly conduc derek complexes. Marked ST abnormality, possible inferior subendocardial injury Marked ST abnormality, possible anterior subendocardial injury Abnormal ECG When compared with ECG of 29-JUN-2019 14:51, Atrial fibrillation. has replaced Sinus rhythm. Vent. rate has increased BY [address] now depressed in Inferior leads ST now depressed in Anterolateral leads T wave inversion now evident in Anterolateral leads Confirmed by Mac FATIMA, Tyron Bueno ([id number]) on 07/03/2019 6:13:07 PM
--- NOTE | 2019-07-02 07:38 | Diag Imaging Result Doc PS360 ---
EXAM: CHEST-1 VIEW 07/01/2019 HISTORY: NG placement TECHNIQUE: AP portable at 2234 COMMENT: There is an NG tube with its tip in the fundus of the stomach. Compared to 07/01/2019 the atelectatic opacity seen previously in the right base as resolved. IMPRESSION: NG tube in the stomach. Electronically signed by Raphael Germain 07/02/2019 7:36 AM
--- NOTE | 2019-07-02 07:54 | PROGRESS NOTE ---
DATE: 07/02/2019 SUBJECTIVE: The patient has been agitated on and off yesterday and during the night. We will continue with sedation. He is still on mechanical ventilation. BUN increased a little bit, but creatinine decreased from 1.9 to 1.7. He is still hypernatremic, but he has been placed on D-5-W, which I will continue. OBJECTIVE: Vital Signs: Temperature 98.6 degrees, pulse 57, respiratory rate 11, blood pressure 143/87, oxygen saturation 97% on mechanical ventilation 45% FiO2. HEENT: Head normocephalic, no trauma. PERRLA. He has a forehead scar with some bony abnormality, which is chronic and probably from previous craniectomy. Neck: Supple. Chest: Decreased breath sounds at the bases with some crepitus. Abdomen: Soft, nontender, nondistended. No hepatosplenomegaly. Extremities: He has 2+ upper extremity edema. No lower extremity edema. No clubbing. No cyanosis. Neurological: The patient is on mechanical ventilation and sedated. LABORATORY: WBC 9.3, hemoglobin 12.6, hematocrit 41.7, platelets 268,000. A pCO2 of 83. Sodium 149, potassium 3.5, chloride 94, bicarbonate 43, BUN 38, creatinine 1.7, glucose 153, calcium 8.2, CK is 253, albumin 3.3. ASSESSMENT AND PLAN: 1. Acute hypoxemic and hypercarbic respiratory failure due to chronic obstructive pulmonary disease exacerbation, influenza, and possible left lower lobe pneumonia. Continue with same management. He is on mechanical ventilation, antibiotics, Tamiflu. Pulmonary Department on board. 2. Chronic obstructive pulmonary disease exacerbation. Continue with same treatment. Yesterday we started this patient on steroids. 3. Influenza A positive. Continue with Tamiflu. 4. Possible left lower lobe pneumonia. Continue with antibiotics. 5. Septic shock. He is no longer on pressors. This is likely a combination of pneumonia and influenza. 6. Hyperkalemia, resolved. 7. Hypernatremia. Continue with D-5-W. History of hepatitis C, aware. 8. History of bipolar disorder and posttraumatic stress disorder, aware. 9. Possible seizure before coming to the emergency room. We will monitor. 10. Polysubstance abuse. Urine toxicology showed methamphetamine and cannabinoids. 11. Tobacco abuse. As per the , he smokes 1 pack a day. 12. Rhabdomyolysis. CK level is getting better. 13. Nutritional status. Continue with feeding tube. 14. Supratherapeutic INR. This patient has an episode of atrial fibrillation with rapid ventricular rate yesterday, but now is controlled. We will monitor. I will get the PT/INR in the morning. 15. Episode of atrial fibrillation with rapid ventricular rate, controlled. He received some diltiazem drip, which has been stopped already. CRITICAL CARE TIME: 35 minutes. cc: Jesús Paul MD
[2019-07-02] MEDS: SODIUM CHLORIDE 0.9% INJ SCH ×2 (08:32→20:17)
[2019-07-02] MEDS: PROTONIX IV SCH ×2 (08:32→20:17)
[2019-07-02] MEDS: TAMIFLU PO SCH ×2 (08:33→20:18)
--- NOTE | 2019-07-02 08:56 | NEPHROLOGY PROGRESS NOTE ---
DATE: 07/02/2019 SUBJECTIVE: Patient remains sedated and mechanically ventilated. OBJECTIVE: Vital Signs: Temperature 98.6 degrees, pulse 57, respiratory rate 11, blood pressure 143/87. Intake 3.7 L. Output 3.4 L. General: This is a chronically ill- appearing, middle-aged gentleman, currently sedated and mechanically ventilated. HEENT: Normocephalic, atraumatic. His pupils are pinpoint. He is orally intubated. Neck: Supple, without JVD. Cardiovascular: Regular. Pulmonary: Decreased breath sounds. Mechanically ventilated. No wheezes. Abdomen: Soft, hypoactive. : [place] catheter, he has bloody urine. Extremities: He has 1+ edema in the upper extremities, dependent. He has no pretibial edema. Integumentary: Skin is warm and dry otherwise. Neurologic: Again, sedated. Lab Data: WBC of 9.3, hemoglobin 12.6. Sodium 149, potassium 3.5, CO2 of 43, creatinine 1.7 (1.9). ASSESSMENT AND PLAN: Acute kidney injury. He had some modest improvement in renal function over the last 24 hours and excellent urine output. He is slightly alkalotic but again, he is diuresing nicely. Make no changes. Dictated by KARLA Campbell for Fabrice Gomez MD Face to face encounter, data reviewed, discussed with Heather Meade on 07/02/18. I agree with the above assessment and plan of care. cc: Fabrice Gomez MD [facility]
--- NOTE | 2019-07-02 09:41 | PROVIDER PROGRESS NOTE ---
Progress Note Pulmonary additional note: I have seen and examined the case, reviewed the EMR, labs, latest images and other medical teams notes. Also reviewed the [employer] notes and signed necessary form(s). I have noted changes in condition if any from yesterday and did orders. Please see also signed progress sheet. Since yesterday, Creatinine is improving and overweekend levophyd was taken off. Remains on AC and sedation. Prognosis: Guarded for now. I reviewed notes from Dr. Mcdonough and Dr. Watson. Respiratory failure, septic shock is better. COPD and pneumonia (influenza). ARF improving. Delerium requiring heavy sedation. Failed weaning today. Will attempt again tomorrow. I asked staff certified nurse midwife about condition changes and if they have any needs in regard to today conditions. I discussed the case with his . I spent 31 minutes in this process.
--- NOTE | 2019-07-02 09:46 | PROVIDER PROGRESS NOTE ---
Progress Note Dr. Jackson Progress Note/Pulmonary and or critical care We appreciated progress of care, Complications, change in diagnosis, and instructions to patient under direct supervision of Dr. Jackson. Subjective: We note the level of consciousness, bed (chair) position, family presence (if any), level of lethargy, feeling of symptoms, and changes from baseline condition/symptom. The patient is intubated and sedated. AC settin, 40%, 700, 5. On fentanyl drip at 6 and precedex at 1 mcg/kg/hr. Temperature 99.5. RN reports when patient awaked, he tried to sit up and reach the ETT. Objective: Vital Signs: We reviewed EMR current values for Pulse rate, Blood pressure, Pulse rate, respiratory rate and Pulse oximetry. Also noted other values and trends if present (e.g. I/O, CVP). Vital Signs 07/01/19 13:00 07/01/19 13:14 07/01/19 13:16 Temperature Pulse Rate 114 H 83 83 Respiratory Rate 14 26 H 17 Blood Pressure 111/80 105/87 O2 Sat by Pulse Oximetry 94 L 93 L 93 L 07/01/19 13:29 07/01/19 13:31 07/01/19 13:44 Temperature Pulse Rate 83 82 75 Respiratory Rate 14 26 H 19 Blood Pressure 110/78 99/66 O2 Sat by Pulse Oximetry 93 L 93 L 94 L 07/01/19 13:46 07/01/19 14:04 07/01/19 14:14 Temperature Pulse Rate 76 80 79 Respiratory Rate 13 14 21 Blood Pressure 129/102 97/74 O2 Sat by Pulse Oximetry 94 L 95 94 L 07/01/19 14:29 07/01/19 14:44 07/01/19 15:01 Temperature Pulse Rate 76 70 86 Respiratory Rate 17 10 L 13 Blood Pressure 95/73 83/64 89/61 O2 Sat by Pulse Oximetry 94 L 94 L 97 07/01/19 15:21 07/01/19 15:38 07/01/19 15:44 Temperature Pulse Rate 155 H 137 H 105 H Respiratory Rate 13 10 L 10 L Blood Pressure 145/97 124/95 111/89 O2 Sat by Pulse Oximetry 100 100 100 07/01/19 15:54 07/01/19 15:59 01/12/20 16:01 Temperature 99.7 F H Pulse Rate 84 83 82 Respiratory Rate 10 L 11 L 11 L Blood Pressure 111/89 135/76 O2 Sat by Pulse Oximetry 100 100 100 07/01/19 16:08 07/01/19 16:14 07/01/19 16:29 Temperature Pulse Rate 89 78 74 Respiratory Rate 13 13 Blood Pressure 125/74 119/71 O2 Sat by Pulse Oximetry 100 100 07/01/19 16:44 07/01/19 16:59 07/01/19 17:14 Temperature Pulse Rate 68 66 62 Respiratory Rate 13 16 10 L Blood Pressure 117/70 112/76 118/68 O2 Sat by Pulse Oximetry 100 100 100 07/01/19 17:29 07/01/19 17:44 07/01/19 17:46 Temperature Pulse Rate 61 61 63 Respiratory Rate 13 11 L 15 Blood Pressure 112/64 122/71 O2 Sat by Pulse Oximetry 94 L 93 L 93 L 07/01/19 17:59 07/01/19 18:01 07/01/19 18:14 Temperature Pulse Rate 60 64 57 L Respiratory Rate 13 16 11 L Blood Pressure 117/71 119/68 O2 Sat by Pulse Oximetry 93 L 93 L 94 L 07/01/19 18:16 07/01/19 18:29 07/01/19 18:31 Temperature Pulse Rate 57 L 58 L 58 L Respiratory Rate 13 18 12 Blood Pressure 125/71 O2 Sat by Pulse Oximetry 94 L 95 96 07/01/19 18:44 07/01/19 18:46 07/01/19 18:59 Temperature Pulse Rate 57 L 57 L 56 L Respiratory Rate 12 13 17 Blood Pressure 135/78 131/77 O2 Sat by Pulse Oximetry 96 96 96 07/01/19 19:01 07/01/19 19:14 07/01/19 19:16 Temperature Pulse Rate 55 L 56 L 56 L Respiratory Rate 13 10 L 15 Blood Pressure 139/80 O2 Sat by Pulse Oximetry 96 97 97 07/01/19 19:20 07/01/19 19:29 07/01/19 19:31 Temperature Pulse Rate 53 L 54 L Respiratory Rate 13 16 Blood Pressure 132/80 O2 Sat by Pulse Oximetry 99 98 98 07/01/19 19:44 07/01/19 19:46 07/01/19 19:59 Temperature Pulse Rate 80 73 55 L Respiratory Rate 17 23 11 L Blood Pressure 150/84 132/74 O2 Sat by Pulse Oximetry 99 98 97 07/01/19 20:01 07/01/19 20:14 07/01/19 20:16 Temperature Pulse Rate 55 L 57 L 56 L Respiratory Rate 16 13 13 Blood Pressure 138/81 O2 Sat by Pulse Oximetry 97 98 98 07/01/19 20:29 07/01/19 20:31 07/01/19 20:44 Temperature Pulse Rate 54 L 56 L 57 L Respiratory Rate 10 L 10 L 16 Blood Pressure 136/82 136/85 O2 Sat by Pulse Oximetry 98 98 98 07/01/19 20:46 07/01/19 20:59 07/01/19 21:01 Temperature Pulse Rate 56 L 56 L 57 L Respiratory Rate 16 16 19 Blood Pressure 141/85 O2 Sat by Pulse Oximetry 98 98 98 07/01/19 21:14 07/01/19 21:16 07/01/19 21:29 Temperature Pulse Rate 58 L 59 L 56 L Respiratory Rate 16 18 10 L Blood Pressure 137/81 125/75 O2 Sat by Pulse Oximetry 98 98 98 07/01/19 21:31 07/01/19 21:44 07/01/19 21:46 Temperature Pulse Rate 56 L 59 L 57 L Respiratory Rate 10 L 21 16 Blood Pressure 128/76 O2 Sat by Pulse Oximetry 98 98 98 07/01/19 21:59 07/01/19 22:01 07/01/19 22:14 Temperature Pulse Rate 62 59 L 57 L Respiratory Rate 18 11 L 11 L Blood Pressure 129/78 121/74 O2 Sat by Pulse Oximetry 98 97 99 07/01/19 22:16 07/01/19 22:29 07/01/19 22:31 Temperature Pulse Rate 57 L 60 64 Respiratory Rate 11 L 19 19 Blood Pressure 128/78 O2 Sat by Pulse Oximetry 99 98 98 07/01/19 22:44 07/01/19 22:46 07/01/19 22:59 Temperature Pulse Rate 56 L 57 L 57 L Respiratory Rate 15 11 L 17 Blood Pressure 126/77 133/79 O2 Sat by Pulse Oximetry 99 99 99 07/01/19 23:01 07/01/19 23:14 07/01/19 23:16 Temperature Pulse Rate 57 L 55 L 58 L Respiratory Rate 13 17 16 Blood Pressure 130/77 O2 Sat by Pulse Oximetry 99 100 100 07/01/19 23:29 07/01/19 23:31 07/01/19 23:44 Temperature Pulse Rate 56 L 56 L 58 L Respiratory Rate 11 L 13 13 Blood Pressure 133/80 131/77 O2 Sat by Pulse Oximetry 99 99 98 07/01/19 23:46 07/01/19 23:59 07/02/19 00:00 Temperature 99.0 F Pulse Rate 58 L 58 L 58 L Respiratory Rate 13 13 13 Blood Pressure 129/78 129/78 O2 Sat by Pulse Oximetry 98 99 99 07/02/19 00:01 07/02/19 00:14 07/02/19 00:16 Temperature Pulse Rate 57 L 59 L 57 L Respiratory Rate 14 16 10 L Blood Pressure 134/73 O2 Sat by Pulse Oximetry 99 99 99 07/02/19 00:29 07/02/19 00:31 07/02/19 00:44 Temperature Pulse Rate 55 L 57 L 57 L Respiratory Rate 10 L 13 14 Blood Pressure 134/81 135/82 O2 Sat by Pulse Oximetry 99 99 99 07/02/19 00:46 07/02/19 00:59 07/02/19 01:01 Temperature Pulse Rate 56 L 55 L 59 L Respiratory Rate 17 10 L 10 L Blood Pressure 142/85 O2 Sat by Pulse Oximetry 99 99 99 07/02/19 01:14 07/02/19 01:16 07/02/19 01:29 Temperature Pulse Rate 54 L 54 L 54 L Respiratory Rate 12 16 13 Blood Pressure 143/83 146/85 O2 Sat by Pulse Oximetry 100 99 99 07/02/19 01:31 07/02/19 01:44 07/02/19 01:46 Temperature Pulse Rate 54 L 55 L 54 L Respiratory Rate 13 11 L 10 L Blood Pressure 141/86 O2 Sat by Pulse Oximetry 99 98 98 07/02/19 01:59 07/02/19 02:01 07/02/19 02:14 Temperature Pulse Rate 56 L 58 L 55 L Respiratory Rate 11 L 13 13 Blood Pressure 147/84 144/86 O2 Sat by Pulse Oximetry 98 98 98 07/02/19 02:16 07/02/19 02:29 07/02/19 02:31 Temperature Pulse Rate 55 L 54 L 54 L Respiratory Rate 10 L 11 L 10 L Blood Pressure 147/86 O2 Sat by Pulse Oximetry 96 98 98 07/02/19 02:44 07/02/19 02:46 07/02/19 02:59 Temperature Pulse Rate 55 L 55 L 53 L Respiratory Rate 11 L 13 11 L Blood Pressure 147/85 145/84 O2 Sat by Pulse Oximetry 97 97 98 07/02/19 03:01 07/02/19 03:14 07/02/19 03:16 Temperature Pulse Rate 53 L 52 L 52 L Respiratory Rate 12 13 10 L Blood Pressure 152/87 O2 Sat by Pulse Oximetry 98 98 98 07/02/19 03:29 07/02/19 03:31 07/02/19 03:44 Temperature Pulse Rate 53 L 53 L 54 L Respiratory Rate 12 10 L 14 Blood Pressure 152/86 151/90 O2 Sat by Pulse Oximetry 98 98 99 07/02/19 03:46 07/02/19 03:59 07/02/19 04:00 Temperature 98.6 F Pulse Rate 54 L 55 L 55 L Respiratory Rate 13 12 12 Blood Pressure 147/83 147/83 O2 Sat by Pulse Oximetry 99 95 95 07/02/19 04:01 07/02/19 04:15 07/02/19 04:16 Temperature Pulse Rate 55 L 58 L 58 L Respiratory Rate 14 11 L 10 L Blood Pressure 152/86 O2 Sat by Pulse Oximetry 95 96 96 07/02/19 04:29 07/02/19 04:31 07/02/19 04:44 Temperature Pulse Rate 55 L 56 L 55 L Respiratory Rate 11 L 10 L 12 Blood Pressure 145/83 146/85 O2 Sat by Pulse Oximetry 96 96 96 07/02/19 04:46 07/02/19 04:59 07/02/19 05:01 Temperature Pulse Rate 56 L 57 L 56 L Respiratory Rate 10 L 10 L 13 Blood Pressure 153/87 O2 Sat by Pulse Oximetry 96 97 97 07/02/19 05:14 07/02/19 05:16 07/02/19 05:29 Temperature Pulse Rate 60 64 59 L Respiratory Rate 11 L 19 11 L Blood Pressure 159/87 140/85 O2 Sat by Pulse Oximetry 96 95 97 07/02/19 05:31 07/02/19 05:44 07/02/19 05:46 Temperature Pulse Rate 59 L 59 L 60 Respiratory Rate 11 L 11 L 13 Blood Pressure 145/90 O2 Sat by Pulse Oximetry 97 97 97 07/02/19 05:59 07/02/19 06:01 07/02/19 06:14 Temperature Pulse Rate 58 L 57 L 56 L Respiratory Rate 15 11 L 10 L Blood Pressure 143/87 154/90 O2 Sat by Pulse Oximetry 97 97 97 07/02/19 06:29 07/02/19 06:44 07/02/19 06:59 Temperature Pulse Rate 58 L 57 L 57 L Respiratory Rate 14 13 14 Blood Pressure 154/94 161/94 163/93 O2 Sat by Pulse Oximetry 97 97 97 07/02/19 07:14 07/02/19 07:29 07/02/19 07:44 Temperature Pulse Rate 56 L 58 L 58 L Respiratory Rate 13 13 10 L Blood Pressure 160/94 159/93 155/90 O2 Sat by Pulse Oximetry 97 98 98 07/02/19 07:59 07/02/19 08:00 07/02/19 08:14 Temperature 99.3 F Pulse Rate 57 L 57 L 58 L Respiratory Rate 13 14 13 Blood Pressure 157/93 163/93 161/93 O2 Sat by Pulse Oximetry 98 97 98 07/02/19 08:20 07/02/19 08:29 07/02/19 08:44 Temperature Pulse Rate 58 L 57 L 59 L Respiratory Rate 11 L 15 20 Blood Pressure 154/92 159/92 O2 Sat by Pulse Oximetry 98 99 97 07/02/19 08:59 07/02/19 09:14 07/02/19 09:29 Temperature Pulse Rate 69 64 63 Respiratory Rate 17 15 10 L Blood Pressure 139/85 124/79 131/79 O2 Sat by Pulse Oximetry 93 L 94 L 95 07/02/19 09:44 07/02/19 09:59 07/02/19 10:14 Temperature Pulse Rate 60 61 59 L Respiratory Rate 13 13 16 Blood Pressure 139/82 155/90 158/91 O2 Sat by Pulse Oximetry 96 96 96 Intake & Output 07/01/19 07/02/19 07/02/19 19:59 07:59 19:59 Intake Total 1122 / 3787 2665 / 3787 Output Total 3420 / 3420 Balance 1122 / 367 -755 / 367 Intake: Intake, IV Amount 675 / 1875 1200 / 1875 Intake, IVPB 50 / 300 250 / 300 Intake, Other Amount 257 / 1472 1215 / 1472 Intake, Tube Feeding Amount 60 / 60 Intake, Tube Irrigant Amount 80 / 80 Output: Output, Urine [place] Amount 3420 / 3420 Physical Examination: General: Intubated and sedated with fentanyl and precedex. Lying in bed with no acute distress noted. HEENT: Trachea midline. ETT in place. Mucosa pink and moist. Chest: Mechanically ventilated. Symmetrical excursion. Auscultation reveals diminished breathing sounds and prolonged expiratory phase. CVS: Regular rate and rhythm. Abdomen: Soft. Non-distended. Bowel sounds present. Extremities: BUE edema. Dorsalis pedis diminished b/l. Neuro: Sedated. Labs and Radiology: Reviewed available labs and radiology values available at time of EMR review. Laboratory Results 07/02/19 07/02/19 07/02/19 05:04 05:50 05:50 WBC 9.39 RBC 4.48 L Hgb 12.6 L Hct 41.7 L MCV 93.1 MCH 28.1 MCHC 30.2 L RDW Std Deviation 16.5 H Plt Count 268 MPV 8.9 Immature Gran % (Auto) 0.3 Neut % (Auto) 75.3 H Lymph % (Auto) 14.6 L Colbert % (Auto) 9.5 H Eos % (Auto) 0.0 Baso % (Auto) 0.3 Immature Gran # (Auto) 0.03 Neut # (Auto) 7.07 H Lymph # (Auto) 1.37 Colbert # (Auto) 0.89 H Eos # (Auto) 0.00 Baso # (Auto) 0.03 Specimen Type ARTERIAL Sample Site R RADIAL pH 7.39 pCO2 83 H* pO2 60 HCO3 40.3 H Base Excess 20.0 H Oxyhemoglobin 91.2 L ABG O2 Sat (Calculated) 18.7 ABG O2 Saturation 93.1 L ABG Carboxyhemoglobin 1.30 ABG Methemoglobin 0.7 Kaden Test YES A-a O2 Difference 157.0 Total Hemoglobin 14.6 Lactate 1.60 Blood Gas Modality VENTILATOR Spontaneous Rate 10 FiO2 % 45.0 Tidal Volume 700 PEEP 10.0 Sodium 149 H Potassium 3.5 Chloride 94 L Carbon Dioxide 43 H Anion Gap 12 BUN 38 H Creatinine 1.7 H Estimated GFR/1.73 m2 43 BUN/Creatinine Ratio 22 Glucose 153 H Calculated Osmolality 308 Calcium 8.2 L Phosphorus 3.2 Magnesium 2.2 Total Bilirubin 0.40 AST 28 ALT 16 Alkaline Phosphatase 53 Creatine Kinase 253 H Creatine Kinase Index 1.1 CK-MB (CK-2) 2.90 Total Protein 5.6 L Albumin 3.3 L Globulin 2.3 Albumin/Globulin Ratio 1.4 Dr. Jackson evaluated and additional note below. Evaluation time in minutes: 33 minutes. Assessment: Influenza A COPD exacerbation Hypoxemic and hypercapnic respiratory failure LLL minimal atelectasis +/- pneumonia Seizure disorder Polysubstance abuse Ongoing tobacco use Acute kidney injury Bipolar disorder Mild rhabdomyolysis with decreasing creatinine Plan: Continue current treatment and supportive care per admitting and other teams on the case. Antibiotics. Tamiflu Steroid Bronchodilators. Appropriate DVT and GI prophylaxis. Input was appreciated from Admitting MD and other teams on the case. See additional notes by Dr. Jackson.
[2019-07-02] MEDS ORDERED: NS IV SCH (10:00)
[2019-07-02] MEDS ORDERED: FENTANYL IV SCH (10:00)
[2019-07-02] MEDS: NS IV SCH ×4 (10:47→23:44)
[2019-07-02] MEDS: PRECEDEX IV SCH ×4 (10:47→23:44)
[2019-07-02] MEDS: D5W 1,000 ML IV SCH (13:08)
[2019-07-02] MEDS ORDERED: STERILE WATER INJ. INJ ONE ×2 (14:07→16:54)
[2019-07-02] MEDS: FENTANYL 2,000 MICROGM in NS 160 ML IV SCH ×3 (15:43→23:13)
[2019-07-02] MEDS ORDERED: GEODON IM ONE (16:54)
[2019-07-02] MEDS: HALDOL IV PRN ×2 (16:57→21:40)
[2019-07-02] MEDS ORDERED: GEODON ONE (17:03)
[2019-07-02] MEDS ORDERED: STERILE WATER INJ. ONE (17:03)
[2019-07-03] MEDS: ATIVAN IV PRN ×3 (01:47→08:32)
[2019-07-03] MEDS: SOLU-MEDROL IV SCH ×3 (01:47→17:13)
[2019-07-03] MEDS: FENTANYL 2,000 MICROGM in NS 160 ML IV SCH ×2 (02:50→06:27)
[2019-07-03] MEDS: DUONEB (A & A) INH SCH ×6 (03:35→23:23)
[2019-07-03] MEDS: HALDOL IV PRN ×4 (03:44→22:56)
[2019-07-03] MEDS: D5W 1,000 ML IV SCH (03:45)
[2019-07-03] MEDS: ZOSYN 3.375 GM in NS 50 ML IV SCH ×4 (03:46→21:18)
[2019-07-03 05:02] LABS: ALLEN TEST YES; BE 17.9 mmoll (-3.0-3.0); BLOOD TYPE ARTERIAL; HCO3-(ACT) 38.9 mmoll (20.0-26.0); O2(CT) 16.5 mL/dL (15.0-23.0); O2HB 96.1 % (95.0-99.0); PO2(98.6) 94 mmHg (60-100); SAMPLE BLOOD; SAO2 98.1 % (95.0-100.0); SRATE 10 BPM; THB 12.1 g/dL (11.5-17.4); TVOL 700 mL; pH(98.6) 7.39 (7.35-7.45)
[2019-07-03 05:03] LABS: MODALITY VENTILATOR; PCO2(98.6) 77 mmHg (35-45)
[2019-07-03] MEDS: NS IV SCH ×6 (06:27→23:49)
[2019-07-03] MEDS: PRECEDEX IV SCH ×6 (06:27→23:49)
[2019-07-03 06:47] LABS: EOS# 0.02 X1000 (0.0-0.7); EOS% 0.2 % (0.0-10.0); HEMATOCRIT 41.4 % (42.0-52.0); HEMOGLOBIN 12.7 g/dL (14.0-18.0); IMM GRAN# 0.03 X1000 (0.0-0.04); IMM GRAN% 0.3 % (0.0-0.5); LYMPH# 0.56 X1000 (1.2-3.4); LYMPH% 5.4 % (20.5-51.1); MCH 28.5 PG (27-31); MCHC 30.7 g/dL (33-37); MCV 92.8 FL (81-99); MONO# 0.46 X1000 (0.11-0.59); MONO% 4.4 % (1.7-9.3); MPV 8.9 FL (7.4-10.4); NEUT# 9.37 X1000 (1.4-6.5); NEUT% 89.7 % (42.2-75.2); PLT 251 X1000 (130-400); RBC 4.46 XMIL (4.7-6.1); RDW 15.4 % (11.5-14.5); WBC 10.44 X1000 (4.8-10.8)
[2019-07-03 07:17] LABS: ALB/GLOB RATIO 1.1; ALBUMIN 3.1 g/dL (3.5-5.0); CALCIUM 8.9 mg/dL (8.8-10.2); CREATININE 1.5 mg/dL (0.7-1.2); MAGNESIUM 2.2 mg/dL (1.5-2.7); PHOSPHORUS 2.2 mg/dL (2.7-4.5); POTASSIUM 3.8 mmol/L (3.5-5.1); TOTAL BILIRUBIN 0.49 mg/dL (0.20-1.00)
--- NOTE | 2019-07-03 07:32 | Diag Imaging Result Doc PS360 ---
CHEST-1 VIEW - 07/03/2019 INDICATION: SOB COMPARISON: 07/02/2019 FINDINGS: Support tubes are stable and in good position. Stable right hemidiaphragm elevation. Overall lung volumes remain low. Stable patchy atelectasis in the left lung base. Heart size remains normal. IMPRESSION: No change from prior. Electronically signed by Diaz Bejarano 07/03/2019 7:30 AM
[2019-07-03 07:34] LABS: BANDS 2 % (0-1); LYMPHS 2 % (21-51); SEGS 94 % (42-75)
--- NOTE | 2019-07-03 07:53 | PROGRESS NOTE ---
DATE: 07/03/2019 SUBJECTIVE: This patient has been agitated on and off, even though he has been on sedation. His FiO2 has been increased. I do believe he has been biting the tube. He is still hypercarbic, pending CMP. We will try to wean this patient of the ventilator today. OBJECTIVE: Vital Signs: Temperature 98.6 degrees, pulse 71, respiratory rate 11, blood pressure 136/77, oxygen saturation 96 on mechanical ventilation. HEENT: Head normocephalic. No trauma. PERRLA. He has a forehead scar with some bony abnormality from previous craniectomy. Neck: Supple. Chest: Decreased breath sounds at the bases with some crepitus. Abdomen: Soft. It is not distended. No hepatosplenomegaly. Extremities: There is 2+ upper extremity edema. No lower extremity edema. No clubbing. No cyanosis. Neurological: At this moment, this patient is on mechanical ventilation and sedated, but he has been agitated on and off. LABORATORY DATA: WBC 10.4, hemoglobin 12.7, hematocrit 41.4, platelets 251,000. PCO2 of 77. ASSESSMENT AND PLAN: 1. Acute hypoxemic and hypercarbic respiratory failure due to chronic obstructive pulmonary disease exacerbation, influenza, and possible left lower lobe pneumonia. Continue with the same management. He is on mechanical ventilation. He is receiving antibiotics, Tamiflu. Pulmonary Department on board. We will try to wean this patient off ventilator today. 2. Chronic obstructive pulmonary disease exacerbation. As above. 3. Influenza A. Continue with Tamiflu. 4. Possible left lower lobe pneumonia. Continue with antibiotics. 5. Septic shock. He is no longer on pressors. Likely a combination of pneumonia and influenza. 6. Hyperkalemia, resolved. 7. Hypernatremia. Continue with D5W. Pending CMP today. 8. History of hepatitis C. Aware. 9. History of bipolar disorder and posttraumatic stress disorder. Aware. 10. Possible seizure before coming to the emergency room. Will monitor. No more seizures during this hospitalization. 11. Polysubstance abuse. Urine toxicology showed methamphetamines and cannabinoids. 12. Tobacco abuse. As per the , he smokes 1 pack a day. He will be having daily cessation education. 13. Rhabdomyolysis. Pending lab work at this moment. 14. Supratherapeutic INR. I will get a PT/INR in the morning. 15. Episode of atrial fibrillation with rapid ventricular response, controlled. Seems to be sinus. 16. Nutritional status. Continue with feeding tube. CRITICAL CARE TIME: 30+ minutes. cc: Jesús Paul MD
[2019-07-03 08:30] LABS: CK INDEX 0.4 (0.0-2.5); CK-MB 2.4 ng/mL (0.0-5.0)
[2019-07-03] MEDS: TAMIFLU PO SCH ×2 (08:32→21:19)
[2019-07-03] MEDS: PROTONIX IV SCH ×2 (08:32→21:19)
[2019-07-03] MEDS: SODIUM CHLORIDE 0.9% INJ SCH ×2 (08:33→21:19)
[2019-07-03] MEDS ORDERED: LASIX IV ONE (09:30)
--- NOTE | 2019-07-03 09:33 | PROVIDER PROGRESS NOTE ---
Progress Note Pulmonary additional note: I have seen and examined the case, reviewed the EMR, labs, latest images and other medical teams notes. Also reviewed the TAX ECONOMIST notes and signed necessary form(s). I have noted changes in condition if any from yesterday and did orders. Please see also signed progress sheet. Today he is fluid overloaded and will attempt diuresis PRN and DC IVF (creatinine is better). Will attempt a weaning trial with sedation with precedex, and geodon. We will attempt to break the vicious northway of [id number]. DCed fentantl and ativan. Prognosis: Guarded for now. I reviewed latest notes from Dr. Mcdonough. Influenza A pneumonia. COPD exacerbation. Hypoxemic and hypercapnic respiratory failure. Pneumonia. Seizure disorder. Polysubstance abuse. Improving ARF. Bipolar disorder. Mild rhabdomyolysis. Tolerating weaning trial with reversal of benzo's and narcotics. Discussed with his family at the bedside. I asked tax staff accountant about condition changes and if they have any needs in regard to today conditions. I discussed case with yesterday and today with MARC Garcia and KARLA Keyes. I spent 30 minutes in this process.
[2019-07-03] MEDS: STERILE WATER INJ. INJ SCH (09:40)
[2019-07-03] MEDS: GEODON IM SCH (09:40)
--- NOTE | 2019-07-03 09:45 | PROVIDER PROGRESS NOTE ---
Progress Note Dr. Jackson Progress Note/Pulmonary and or critical care We appreciated progress of care, Complications, change in diagnosis, and ins tructions to patient under direct supervision of Dr. Jackson. Subjective: We note the level of consciousness, bed (chair) position, family presence (if any), level of lethargy, feeling of symptoms, and changes from baseline condition/symptom. The patient is intubated and sedated. AC settin, 70%, 700, 5. On fentanyl drip at 6 and precedex at 1.4 mcg/kg/hr. No fever overnight. I/O +2440. He failed weaning trials yesterday. The RN is planning to start weaning trials soon. Sister and daughter at the bedside. Objective: Vital Signs: We reviewed EMR current values for Pulse rate, Blood pressure, Pulse rate, respiratory rate and Pulse oximetry. Also noted other values and trends if present (e.g. I/O, CVP). Vital Signs 07/02/19 13:59 07/02/19 14:14 07/02/19 14:29 Temperature Pulse Rate 63 64 61 Respiratory Rate 13 13 13 Blood Pressure 124/80 161/98 159/97 O2 Sat by Pulse Oximetry 95 97 97 07/02/19 14:44 07/02/19 14:59 07/02/19 15:14 Temperature Pulse Rate 58 L 56 L 57 L Respiratory Rate 13 13 19 Blood Pressure 166/96 165/100 173/101 O2 Sat by Pulse Oximetry 97 97 97 07/02/19 15:29 07/02/19 15:30 07/02/19 15:44 Temperature Pulse Rate 63 66 60 Respiratory Rate 13 10 L 10 L Blood Pressure 137/83 156/95 O2 Sat by Pulse Oximetry 95 99 07/02/19 15:59 07/02/19 16:00 07/02/19 16:14 Temperature 97.9 F Pulse Rate 58 L 56 L 58 L Respiratory Rate 15 13 18 Blood Pressure 166/96 165/100 166/98 O2 Sat by Pulse Oximetry 97 97 95 07/02/19 16:29 07/02/19 16:44 07/02/19 17:12 Temperature Pulse Rate 59 L 108 H 102 H Respiratory Rate 19 20 13 Blood Pressure 175/99 187/132 93/65 O2 Sat by Pulse Oximetry 94 L 97 97 07/02/19 17:14 07/02/19 17:29 07/02/19 17:44 Temperature Pulse Rate 99 H 84 78 Respiratory Rate 8 L 11 L 11 L Blood Pressure 96/65 111/80 136/87 O2 Sat by Pulse Oximetry 97 95 95 07/02/19 17:59 07/02/19 18:14 07/02/19 18:29 Temperature Pulse Rate 73 69 68 Respiratory Rate 19 15 19 Blood Pressure 137/83 158/87 154/86 O2 Sat by Pulse Oximetry 99 99 99 07/02/19 18:44 07/02/19 18:59 07/02/19 19:14 Temperature 98.6 F Pulse Rate 65 62 63 Respiratory Rate 16 15 18 Blood Pressure 166/88 167/90 171/93 O2 Sat by Pulse Oximetry 99 99 98 07/02/19 19:25 07/02/19 19:28 07/02/19 19:29 Temperature 98.6 F Pulse Rate 68 66 65 Respiratory Rate 17 16 10 L Blood Pressure 171/93 171/93 182/97 O2 Sat by Pulse Oximetry 99 99 07/02/19 19:50 07/02/19 20:01 07/02/19 20:03 Temperature Pulse Rate 63 82 75 Respiratory Rate 10 L 19 14 Blood Pressure 174/105 199/106 O2 Sat by Pulse Oximetry 100 99 99 07/02/19 20:17 07/02/19 20:30 07/02/19 20:45 Temperature Pulse Rate 69 67 64 Respiratory Rate 15 14 18 Blood Pressure 179/94 174/91 166/78 O2 Sat by Pulse Oximetry 97 99 100 07/02/19 20:59 07/02/19 21:14 07/02/19 21:29 Temperature Pulse Rate 61 61 65 Respiratory Rate 19 17 15 Blood Pressure 165/89 171/93 181/91 O2 Sat by Pulse Oximetry 100 100 99 07/02/19 21:31 07/02/19 21:45 07/02/19 22:02 Temperature Pulse Rate 64 65 67 Respiratory Rate 15 14 18 Blood Pressure 178/95 184/98 192/101 O2 Sat by Pulse Oximetry 99 98 98 07/02/19 22:08 07/02/19 22:15 07/02/19 22:49 Temperature Pulse Rate 60 57 L 56 L Respiratory Rate 14 16 16 Blood Pressure 180/96 185/95 187/96 O2 Sat by Pulse Oximetry 98 98 95 07/02/19 23:00 07/02/19 23:17 07/02/19 23:27 Temperature Pulse Rate 60 111 H Respiratory Rate 16 29 H Blood Pressure 186/88 111/93 O2 Sat by Pulse Oximetry 98 96 97 07/02/19 23:30 07/02/19 23:49 07/02/19 23:56 Temperature 98.3 F Pulse Rate 58 L 61 60 Respiratory Rate 14 14 14 Blood Pressure 193/100 184/99 178/94 O2 Sat by Pulse Oximetry 98 96 96 07/02/19 23:59 07/03/19 00:00 07/03/19 00:29 Temperature 98.3 F Pulse Rate 66 60 63 Respiratory Rate 17 14 16 Blood Pressure 168/94 168/94 171/94 O2 Sat by Pulse Oximetry 96 96 96 07/03/19 00:59 07/03/19 01:01 07/03/19 01:03 Temperature Pulse Rate 69 65 66 Respiratory Rate 15 14 16 Blood Pressure 189/103 180/100 174/95 O2 Sat by Pulse Oximetry 96 97 97 07/03/19 01:29 07/03/19 01:59 07/03/19 02:58 Temperature Pulse Rate 61 60 66 Respiratory Rate 16 14 17 Blood Pressure 162/88 197/110 187/96 O2 Sat by Pulse Oximetry 97 96 07/03/19 02:59 07/03/19 03:01 07/03/19 03:05 Temperature Pulse Rate 59 L 58 L 54 L Respiratory Rate 16 19 14 Blood Pressure 179/100 186/100 188/101 O2 Sat by Pulse Oximetry 96 96 96 07/03/19 03:15 07/03/19 03:27 07/03/19 03:35 Temperature Pulse Rate 54 L 55 L Respiratory Rate 16 14 Blood Pressure 192/101 205/104 O2 Sat by Pulse Oximetry 96 96 95 07/03/19 04:00 07/03/19 04:30 07/03/19 05:08 Temperature 98.6 F Pulse Rate 62 66 70 Respiratory Rate 14 14 14 Blood Pressure 179/80 145/73 168/86 O2 Sat by Pulse Oximetry 98 97 97 07/03/19 05:30 07/03/19 06:21 07/03/19 06:29 Temperature Pulse Rate 84 71 71 Respiratory Rate 15 10 L 11 L Blood Pressure 157/92 136/75 136/77 O2 Sat by Pulse Oximetry 96 96 96 07/03/19 06:59 07/03/19 07:29 07/03/19 07:59 Temperature Pulse Rate 68 67 71 Respiratory Rate 18 13 22 Blood Pressure 138/78 140/81 153/87 O2 Sat by Pulse Oximetry 97 96 97 07/03/19 08:00 07/03/19 08:23 07/03/19 08:29 Temperature 99.1 F Pulse Rate 68 70 116 H Respiratory Rate 18 17 23 Blood Pressure 138/78 183/121 O2 Sat by Pulse Oximetry 97 96 98 07/03/19 09:00 07/03/19 09:29 07/03/19 09:59 Temperature Pulse Rate 66 64 69 Respiratory Rate 11 L 16 14 Blood Pressure 123/75 129/75 128/76 O2 Sat by Pulse Oximetry 97 97 92 L 07/03/19 10:29 07/03/19 10:59 07/03/19 11:30 Temperature Pulse Rate 82 65 84 Respiratory Rate 10 L 15 39 H Blood Pressure 156/85 126/75 164/86 O2 Sat by Pulse Oximetry 94 L 94 L 92 L 07/03/19 11:59 07/03/19 12:00 07/03/19 12:29 Temperature 99.2 F Pulse Rate 74 65 71 Respiratory Rate 12 15 22 Blood Pressure 161/94 126/75 182/107 O2 Sat by Pulse Oximetry 93 L 94 L 95 07/03/19 13:16 Temperature Pulse Rate 80 Respiratory Rate 15 Blood Pressure 162/92 O2 Sat by Pulse Oximetry 89 L Intake & Output 07/02/19 07/03/19 07/03/19 19:59 07:59 19:59 Intake Total 1496 / 4640 3144 / 4640 829 / 829 Output Total 600 / 2200 1600 / 2200 2500 / 2500 Balance 896 / 2440 1544 / 2440 -1671 / -1671 Intake: Intake, IV Amount 600 / 1800 1200 / 1800 225 / 225 Intake, IVPB 50 / 200 150 / 200 50 / 50 Intake, Other Amount 646 / 1940 1294 / 1940 404 / 404 Intake, Tube Feeding Amount 140 / 520 380 / 520 120 / 120 Intake, Tube Irrigant Amount 60 / 180 120 / 180 30 / 30 Output: Output, Urine [place] Amount 600 / 2200 1600 / 2200 2500 / 2500 Other: NG/Feeding Tube Residual Check Yes Yes: 20 Yes & Amount Number of Bowel Movements 1 2 Bowel Movement Color and Liquid Liquid Character Brown Brown Physical Examination: General: Intubated and sedated. Lying in bed with no acute distress noted. HEENT: Trachea midline. ETT in place. Mucosa pink and slightly dry. Chest: Mechanically ventilated. Symmetrical excursion. Auscultation reveals diminished breathing sounds, prolonged expiratory phase and mild inspiratory crackles LLL. CVS: Regular rate and rhythm. Abdomen: Soft. Mildly distended. Bowel sounds present. Extremities: BUE edema. Dorsalis pedis diminished b/l. Neuro: Sedated. Labs and Radiology: Reviewed available labs and radiology values available at time of EMR review. Laboratory Results 07/03/19 07/03/19 07/03/19 04:15 05:15 05:15 WBC 10.44 RBC 4.46 L Hgb 12.7 L Hct 41.4 L MCV 92.8 MCH 28.5 MCHC 30.7 L RDW Std Deviation 15.4 H Plt Count 251 MPV 8.9 Immature Gran % (Auto) 0.3 Neut % (Auto) 89.7 H Lymph % (Auto) 5.4 L [place] % (Auto) 4.4 Eos % (Auto) 0.2 Baso % (Auto) 0.0 Immature Gran # (Auto) 0.03 Neut # (Auto) 9.37 H Lymph # (Auto) 0.56 L [place] # (Auto) 0.46 Eos # (Auto) 0.02 Baso # (Auto) 0.00 Segmented Neutrophils 94 H Band Neutrophils 2 H Lymphocytes 2 L Myelocytes 2.0 Specimen Type ARTERIAL Sample Site R RADIAL pH 7.39 pCO2 77 H* pO2 94 HCO3 38.9 H Base Excess 17.9 H Oxyhemoglobin 96.1 ABG O2 Sat (Calculated) 16.5 ABG O2 Saturation 98.1 ABG Carboxyhemoglobin 1.00 ABG Methemoglobin 1.0 Kaden Test YES A-a O2 Difference 238.0 Total Hemoglobin 12.1 Lactate 1.90 Blood Gas Modality VENTILATOR Spontaneous Rate 10 FiO2 % 60.0 Tidal Volume 700 PEEP 5.0 Pressure Support Sodium 145 Potassium 3.8 Chloride 96 L Carbon Dioxide 38 H Anion Gap 11 BUN 41 H Creatinine 1.5 H Estimated GFR/1.73 m2 50 BUN/Creatinine Ratio 27 Glucose 196 H Calculated Osmolality 304 Calcium 8.9 Phosphorus 2.2 L Magnesium 2.2 Total Bilirubin 0.49 AST 36 H ALT 14 Alkaline Phosphatase 66 Creatine Kinase 599 H D Creatine Kinase Index 0.4 CK-MB (CK-2) 2.40 Total Protein 6.0 L Albumin 3.1 L Globulin 2.9 Albumin/Globulin Ratio 1.1 07/03/19 07/03/19 10:30 11:30 WBC RBC Hgb Hct MCV MCH MCHC RDW Std Deviation Plt Count MPV Immature Gran % (Auto) Neut % (Auto) Lymph % (Auto) [place] % (Auto) Eos % (Auto) Baso % (Auto) Immature Gran # (Auto) Neut # (Auto) Lymph # (Auto) [place] # (Auto) Eos # (Auto) Baso # (Auto) Segmented Neutrophils Band Neutrophils Lymphocytes Myelocytes Specimen Type ARTERIAL ARTERIAL Sample Site R RADIAL R RADIAL pH 7.33 L 7.44 pCO2 93 H* 70 H* pO2 74 58 L HCO3 38.8 H 39.7 H Base Excess 17.9 H 19.1 H Oxyhemoglobin 94.3 L 91.7 L ABG O2 Sat (Calculated) 18.6 18.3 ABG O2 Saturation 96.4 93.9 L ABG Carboxyhemoglobin 1.00 1.40 ABG Methemoglobin 1.1 0.8 Kaden Test YES YES A-a O2 Difference 166.0 211.0 Total Hemoglobin 14.0 14.2 Lactate 0.90 1.30 Blood Gas Modality VENTILATOR VENTILATOR Spontaneous Rate FiO2 % 50.0 50.0 Tidal Volume PEEP 5.0 5.0 Pressure Support 5.00 5.00 Sodium Potassium Chloride Carbon Dioxide Anion Gap BUN Creatinine Estimated GFR/1.73 m2 BUN/Creatinine Ratio Glucose Calculated Osmolality Calcium Phosphorus Magnesium Total Bilirubin AST ALT Alkaline Phosphatase Creatine Kinase Creatine Kinase Index CK-MB (CK-2) Total Protein Albumin Globulin Albumin/Globulin Ratio Dr. Jackson evaluated and additional note below. Evaluation time in minutes: 33 minutes. Assessment: Influenza A COPD exacerbation Hypoxemic and hypercapnic respiratory failure LLL minimal atelectasis +/- pneumonia with right hemidiaphragm elevation. Seizure disorder Polysubstance abuse Ongoing tobacco use Acute kidney injury. Improving. Bipolar disorder Mild rhabdomyolysis. Worsening. Plan: Continue current treatment and supportive care per admitting and other teams on the case. Daily weaning trials Antibiotics. Tamiflu Steroid Bronchodilators. Appropriate DVT and GI prophylaxis. Input was appreciated from Admitting MD and other teams on the case. See additional notes by Dr. Jackson.
[2019-07-03 10:35] LABS: ALLEN TEST YES; BE 17.9 mmoll (-3.0-3.0); BLOOD TYPE ARTERIAL; HCO3-(ACT) 38.8 mmoll (20.0-26.0); METHB 1.1 % (0.0-1.5); O2(CT) 18.6 mL/dL (15.0-23.0); O2HB 94.3 % (95.0-99.0); PO2(98.6) 74 mmHg (60-100); SAMPLE BLOOD; SAO2 96.4 % (95.0-100.0); pH(98.6) 7.33 (7.35-7.45)
[2019-07-03 10:37] LABS: MODALITY VENTILATOR; PCO2(98.6) 93 mmHg (35-45)
[2019-07-03] MEDS ORDERED: ROMAZICON IV ONE ×2 (10:48→12:12)
[2019-07-03] MEDS ORDERED: NARCAN IV ONE ×2 (10:50→12:12)
[2019-07-03] MEDS ORDERED: GEODON IM ONE (11:26)
[2019-07-03] MEDS ORDERED: STERILE WATER INJ. INJ ONE (11:26)
[2019-07-03 11:31] LABS: ALLEN TEST YES; BE 19.1 mmoll (-3.0-3.0); BLOOD TYPE ARTERIAL; HCO3-(ACT) 39.7 mmoll (20.0-26.0); METHB 0.8 % (0.0-1.5); O2(CT) 18.3 mL/dL (15.0-23.0); O2HB 91.7 % (95.0-99.0); PO2(98.6) 58 mmHg (60-100); SAMPLE BLOOD; SAO2 93.9 % (95.0-100.0); THB 14.2 g/dL (11.5-17.4); pH(98.6) 7.44 (7.35-7.45)
[2019-07-03 11:32] LABS: MODALITY VENTILATOR; PCO2(98.6) 70 mmHg (35-45)
--- NOTE | 2019-07-03 13:44 | NEPHROLOGY PROGRESS NOTE ---
DATE: 07/03/2019 SUBJECTIVE: Patient remains sedated and mechanically ventilated. OBJECTIVE: Vital Signs: Temperature 98.6 degrees, pulse 71, respiratory rate 11, blood pressure 136/77. Intake 4.6 L output 2.2 L plus liquid stools that have not been able to quantify. General: Chronically ill-appearing, middle-aged gentleman, sedated, mechanically ventilated. HEENT: Normocephalic atraumatic. Orally intubated. Pupils are pinpoint. He has an NG tube with tube feeding infusing. Neck: Supple. No JVD. Cardiovascular: Regular. No murmur. Pulmonary: Decreased breath sounds. Remains mechanically ventilated. No rales or wheezes. Abdomen: Soft. Hypoactive. : He has pink urine again today. [place] catheter noted. Extremities: 1+ upper extremity edema. No pretibial edema. He has a dependent edema to the backs of the thighs. Integumentary: Skin is warm and dry. Neurologic: Sedated. LAB DATA: WBC of 10.4, hemoglobin 12.7. Sodium 145 potassium 3.8. CO2 38 (43) creatinine 1.5 (1.7). ASSESSMENT AND PLAN: 1. Acute kidney injury. Patient has continued with adequate urine output and continued improvement in renal function. No changes from a renal perspective. We will sign off. 2. Electrolytes, acid-base balance. These are in target. 3. Fluid volume. He is in positive fluid balance. However, he does have liquid stools at this time, multiple. His weight has not been documented on the computer. Dictated by KARLA Campbell for Fabrice Gomez MD Face to face encounter, data reviewed, discussed with Heather Meade on 07/03/18. I agree with the above assessment and plan of care. cc: Fabrice Gomez MD [facility]
[2019-07-04] MEDS: ZOSYN 3.375 GM in NS 50 ML IV SCH ×4 (03:26→20:03)
[2019-07-04] MEDS: SOLU-MEDROL IV SCH ×2 (03:26→14:37)
[2019-07-04] MEDS: NS IV SCH ×3 (03:28→10:34)
[2019-07-04] MEDS: PRECEDEX IV SCH ×3 (03:28→10:34)
[2019-07-04] MEDS: DUONEB (A & A) INH SCH ×6 (03:32→23:19)
[2019-07-04] MEDS: HALDOL IV PRN ×3 (04:43→18:38)
[2019-07-04] MEDS ORDERED: STERILE WATER INJ. INJ ONE (07:02)
[2019-07-04] MEDS ORDERED: GEODON IM ONE (07:02)
[2019-07-04] MEDS ORDERED: GEODON ONE (07:08)
[2019-07-04] MEDS ORDERED: STERILE WATER INJ. ONE (07:08)
[2019-07-04] MEDS ORDERED: CLINIMIX E 4.25%-5% SOLUTION 1,000 ML IV SCH (07:15)
--- NOTE | 2019-07-04 08:34 | PROGRESS NOTE ---
DATE: 07/04/2019 SUBJECTIVE: At this moment, this patient is severely agitated. I will go ahead and given him a single dose of Geodon 20 mg IM right now. I do not have any lab work at this moment because of his agitation. He is not following commands or answering any of my questions. He has been extubated yesterday. Pulmonary following this patient closely as well. OBJECTIVE: Vital Signs: Temperature 99 degrees, pulse 124, respiratory rate 24, blood pressure 126/106, oxygen saturation 99% on the BiPAP machine. HEENT: Head normocephalic, no trauma. PERRLA. He has a forehead scar with some bony abnormality from previous craniectomy. Neck: Supple. Chest: Decreased breath sounds with some mild crepitus at the bases mostly. Abdomen: Soft. It is not distended. No hepatosplenomegaly. Extremities: There is 2+ upper extremity edema. No lower extremity edema. No clubbing. No cyanosis. Neurological: The patient is agitated. He is not following commands. He is moving all 4 extremities. He is trying to get out of bed. LABORATORY: WBC 10.4, hemoglobin 12.7, hematocrit 41.4, platelets 251,000. Sodium 145, potassium 3.8, chloride 96, bicarbonate 38, BUN 41, creatinine 1.5, glucose 196, calcium 8.9, albumin 3.1. That laboratory report is from yesterday. Pending lab work today. ASSESSMENT AND PLAN: 1. Acute hypoxemic and hypercarbic respiratory failure due to chronic obstructive pulmonary disease exacerbation, influenza, and possible left lower lobe pneumonia. Continue with the same management. He has been extubated yesterday. He is getting antibiotics, Tamiflu, pulmonary Department on board, breathing treatment. This patient is agitated. 2. Chronic obstructive pulmonary disease exacerbation, as above. 3. Influenza A, continue with Tamiflu. 4. Possible left lower lobe pneumonia, continue with antibiotics. 5. Septic shock, he is no longer on pressors. This is likely a combination of pneumonia and influenza. 6. Hyperkalemia, resolved. Pending lab work today. 7. Hypernatremia. This patient was on D-5-W, but it looks like it has been stopped. I will go ahead and put this patient on Clinimix. 8. History of hepatitis C, aware. 9. History of bipolar disorder and posttraumatic stress disorder, aware. 10. Possible seizure before coming to the emergency room, we will monitor. No more seizure disorder during this hospitalization, but he is severely agitated and confused. 11. Polysubstance abuse. Urine toxicology showed methamphetamines and cannabinoids. 12. Tobacco abuse. As per the , he smokes 1 pack a day. 13. Rhabdomyolysis. Pending lab work today. CK increased yesterday, probably due to agitation and severe muscle contraction. 14. Supratherapeutic INR, pending INR today. 15. Episode of atrial fibrillation with rapid ventricular response, resolved. 16. Nutritional status. He has been getting the feeding through the nasogastric tube. 17. Global encephalopathy. I will go ahead and consult Neurology to evaluate this patient. CRITICAL CARE TIME: 40 minutes. cc: Jesús Paul MD
[2019-07-04 09:10] LABS: INR 1.83; PROTIME 21.5 Seconds (11.0-16.0)
[2019-07-04 09:12] LABS: ALB/GLOB RATIO 1.5; CALCIUM 9.3 mg/dL (8.8-10.2); POTASSIUM 3.7 mmol/L (3.5-5.1); TOTAL BILIRUBIN 1.01 mg/dL (0.20-1.00); TOTAL PROTEIN 6.6 g/dL (6.3-8.3)
--- NOTE | 2019-07-04 09:14 | Diag Imaging Result Doc PS360 ---
EXAM: CHEST-1 VIEW INDICATION: SOB TECHNIQUE: One view COMPARISON: 07/03/2019 FINDINGS: There has been interval extubation. The NG tube is in stable position. The atelectasis at the lung bases has improved somewhat. No new consolidation is identified. Cardiac silhouette is stable. IMPRESSION: Improvement of mild basilar atelectasis. Electronically signed by Isidoro Fine 07/04/2019 9:14 AM
[2019-07-04] MEDS: OFIRMEV 1000 MG/ISOTONIC SOLN 1,000 MG/100 ML BOTTLE IV PRN ×2 (09:31→22:00)
[2019-07-04] MEDS: GEODON IM SCH ×3 (09:38→23:15)
[2019-07-04] MEDS: PROTONIX IV SCH ×2 (09:39→20:04)
[2019-07-04] MEDS: STERILE WATER INJ. INJ SCH ×2 (09:39→15:58)
[2019-07-04 09:53] LABS: BASO# 0.01 X1000 (0.0-0.2); BASO% 0.1 % (0.0-0.8); HEMATOCRIT 47.8 % (42.0-52.0); HEMOGLOBIN 14.5 g/dL (14.0-18.0); IMM GRAN# 0.03 X1000 (0.0-0.04); IMM GRAN% 0.2 % (0.0-0.5); LYMPH# 1.33 X1000 (1.2-3.4); MCH 28.2 PG (27-31); MCHC 30.3 g/dL (33-37); MCV 92.8 FL (81-99); MONO# 0.46 X1000 (0.11-0.59); MONO% 2.8 % (1.7-9.3); NEUT# 14.71 X1000 (1.4-6.5); NEUT% 88.9 % (42.2-75.2); PLT 268 X1000 (130-400); RBC 5.15 XMIL (4.7-6.1); RDW 15.5 % (11.5-14.5); WBC 16.54 X1000 (4.8-10.8)
--- NOTE | 2019-07-04 09:54 | PROVIDER PROGRESS NOTE ---
Progress Note Dr. Jackson Progress Note/Pulmonary and or critical care We appreciated progress of care, Complications, change in diagnosis, and instructions to patient under direct supervision of Dr. Jackson. Subjective: We note the level of consciousness, bed (chair) position, family presence (if any), level of lethargy, feeling of symptoms, and changes from baseline condition/symptom. The patient is on a BiPAP mask 20/6 80%. He is extremely restless, moaning and agitated. He is on 4 point restraint, but keeps trying to sit up. Tachycardia and tachypnea. No fever overnight. I/O -2809. Na+ up to 155 this am. He was extubated yesterday. No family at the bedside. Objective: Vital Signs: We reviewed EMR current values for Pulse rate, Blood pressure, Pulse rate, respiratory rate and Pulse oximetry. Also noted other values and trends if present (e.g. I/O, CVP). Vital Signs 07/03/19 13:59 07/03/19 14:29 07/03/19 14:59 Temperature Pulse Rate 75 58 L 94 H Respiratory Rate 11 L 10 L 23 Blood Pressure 150/86 155/86 178/85 O2 Sat by Pulse Oximetry 92 L 89 L 91 L 07/03/19 16:00 07/03/19 16:52 07/03/19 17:04 Temperature 99.4 F Pulse Rate 65 76 64 Respiratory Rate 9 L 9 L 16 Blood Pressure 183/92 179/106 193/108 O2 Sat by Pulse Oximetry 92 L 95 96 07/03/19 17:29 07/03/19 17:59 07/03/19 18:30 Temperature Pulse Rate 64 61 60 Respiratory Rate 15 15 7 L Blood Pressure 188/108 196/111 193/105 O2 Sat by Pulse Oximetry 98 98 99 07/03/19 18:53 07/03/19 19:01 07/03/19 19:30 Temperature 99 F Pulse Rate 70 90 78 Respiratory Rate 16 22 24 Blood Pressure 204/117 215/172 209/128 O2 Sat by Pulse Oximetry 99 97 98 07/03/19 19:35 07/03/19 20:00 07/03/19 20:01 Temperature 99 F Pulse Rate 62 64 90 Respiratory Rate 16 11 L 22 Blood Pressure 194/101 182/127 O2 Sat by Pulse Oximetry 98 97 96 07/03/19 20:14 07/03/19 20:55 07/03/19 20:59 Temperature Pulse Rate 71 67 67 Respiratory Rate 9 L 11 L 16 Blood Pressure 207/123 194/101 189/112 O2 Sat by Pulse Oximetry 98 98 98 07/03/19 21:24 07/03/19 21:27 07/03/19 21:29 Temperature Pulse Rate 64 66 62 Respiratory Rate 10 L 15 7 L Blood Pressure 199/109 201/117 208/113 O2 Sat by Pulse Oximetry 98 98 98 07/03/19 21:59 07/03/19 22:29 07/03/19 23:22 Temperature Pulse Rate 70 67 60 Respiratory Rate 21 17 15 Blood Pressure 205/120 203/107 188/103 O2 Sat by Pulse Oximetry 99 98 98 07/03/19 23:23 07/03/19 23:29 07/04/19 00:00 Temperature 98.7 F Pulse Rate 62 69 Respiratory Rate 14 19 Blood Pressure 192/113 208/110 O2 Sat by Pulse Oximetry 97 98 98 07/04/19 00:42 07/04/19 01:29 07/04/19 03:17 Temperature 98.7 F Pulse Rate 67 90 95 H Respiratory Rate 16 34 H 30 H Blood Pressure 208/110 200/152 194/177 O2 Sat by Pulse Oximetry 96 98 97 07/04/19 03:29 07/04/19 03:32 07/04/19 04:00 Temperature 99 F Pulse Rate 86 93 H Respiratory Rate 24 33 H Blood Pressure 225/117 108/86 O2 Sat by Pulse Oximetry 100 94 L 98 07/04/19 05:18 07/04/19 05:29 07/04/19 05:45 Temperature Pulse Rate 78 88 126 H Respiratory Rate 17 17 17 Blood Pressure 108/86 113/89 O2 Sat by Pulse Oximetry 99 93 L 07/04/19 05:59 07/04/19 06:00 07/04/19 06:29 Temperature Pulse Rate 117 H 124 H 144 H Respiratory Rate 25 H 28 H 40 H Blood Pressure 126/103 128/84 O2 Sat by Pulse Oximetry 100 99 07/04/19 08:00 07/04/19 08:13 07/04/19 08:29 Temperature 102.5 F H Pulse Rate 138 H 117 H 118 H Respiratory Rate 44 H 21 37 H Blood Pressure 166/103 150/83 O2 Sat by Pulse Oximetry 96 96 07/04/19 09:30 07/04/19 10:30 Temperature Pulse Rate 113 H 123 H Respiratory Rate 34 H 37 H Blood Pressure 181/112 202/151 O2 Sat by Pulse Oximetry 96 95 Intake & Output 07/03/19 07/04/19 07/04/19 19:59 07:59 19:59 Intake Total 829 / 1491 662 / 1491 Output Total 2500 / 4300 1800 / 4300 Balance -1671 / -2809 -1138 / -2809 Intake: Intake, IV Amount 225 / 225 Intake, IVPB 50 / 150 100 / 150 Intake, Other Amount 404 / 936 532 / 936 Intake, Tube Feeding Amount 120 / 120 Intake, Tube Irrigant Amount 30 / 60 30 / 60 Output: Output, Urine [place] Amount 2500 / 4300 1800 / 4300 Other: NG/Feeding Tube Residual Check Yes & Amount Number of Bowel Movements 2 Bowel Movement Color and Liquid Character Brown Physical Examination: General: Extremely restless, moaning and agitated. On a BiPAP mask. On 4 point restraint, but keep trying to sit up. HEENT: Trachea midline. NGT in place. Chest: Tachypnea, but no increased work of breathing or database developer muscle use noted. Symmetrical excursion. Auscultation reveals diminished breathing sounds, prolonged expiratory phase and mild inspiratory crackles LLL. CVS: Sinus tachycardia with regular rate and rhythm. Abdomen: Soft. Mildly distended. Bowel sounds present. Extremities: BUE trace edema. Dorsalis pedis diminished b/l. Neuro: Agitated. Not answering questions or following commands. Labs and Radiology: Reviewed available labs and radiology values available at time of EMR review. Laboratory Results 07/04/19 07/04/19 07/04/19 08:33 08:33 08:33 WBC 16.54 H RBC 5.15 Hgb 14.5 Hct 47.8 MCV 92.8 MCH 28.2 MCHC 30.3 L RDW Std Deviation 15.5 H Plt Count 268 MPV 9.0 Immature Gran % (Auto) 0.2 Neut % (Auto) 88.9 H Lymph % (Auto) 8.0 L [place] % (Auto) 2.8 Eos % (Auto) 0.0 Baso % (Auto) 0.1 Immature Gran # (Auto) 0.03 Neut # (Auto) 14.71 H Lymph # (Auto) 1.33 [place] # (Auto) 0.46 Eos # (Auto) 0.00 Baso # (Auto) 0.01 Segmented Neutrophils 82 H Band Neutrophils 2 H Lymphocytes 10 L Monocytes 6 PT 21.5 H INR 1.83 Sodium 155 H Potassium 3.7 Chloride 101 Carbon Dioxide 38 H Anion Gap 16 BUN 48 H Creatinine 2.0 H Estimated GFR/1.73 m2 36 BUN/Creatinine Ratio 24 Glucose 90 D Calculated Osmolality 319 Calcium 9.3 Total Bilirubin 1.01 H AST 63 H ALT 21 Alkaline Phosphatase 62 Creatine Kinase Creatine Kinase Index CK-MB (CK-2) Total Protein 6.6 Albumin 4.0 Globulin 2.6 Albumin/Globulin Ratio 1.5 07/04/19 08:33 WBC RBC Hgb Hct MCV MCH MCHC RDW Std Deviation Plt Count MPV Immature Gran % (Auto) Neut % (Auto) Lymph % (Auto) [place] % (Auto) Eos % (Auto) Baso % (Auto) Immature Gran # (Auto) Neut # (Auto) Lymph # (Auto) [place] # (Auto) Eos # (Auto) Baso # (Auto) Segmented Neutrophils Band Neutrophils Lymphocytes Monocytes PT INR Sodium Potassium Chloride Carbon Dioxide Anion Gap BUN Creatinine Estimated GFR/1.73 m2 BUN/Creatinine Ratio Glucose Calculated Osmolality Calcium Total Bilirubin AST ALT Alkaline Phosphatase Creatine Kinase 1168 H Creatine Kinase Index 0.3 CK-MB (CK-2) 3.82 D Total Protein Albumin Globulin Albumin/Globulin Ratio Dr. Jackson evaluated and additional note below. Evaluation time in minutes: 34 minutes. Assessment: Influenza A COPD exacerbation Hypoxemic and hypercapnic respiratory failure LLL minimal atelectasis +/- pneumonia with right hemidiaphragm elevation. Improving. Seizure disorder Polysubstance abuse Ongoing tobacco use Acute kidney injury. Worsening. Bipolar disorder Mild rhabdomyolysis. Worsening. Plan: Continue current treatment and supportive care per admitting and other teams on the case. Antibiotics. Tamiflu Steroid. Tapering down. Bronchodilators. Appropriate DVT and GI prophylaxis. Input was appreciated from Admitting MD and other teams on the case. See additional notes by Dr. Jackson.
[2019-07-04 10:07] LABS: CK INDEX 0.3 (0.0-2.5); CK-MB 3.82 ng/mL (0.0-5.0)
--- NOTE | 2019-07-04 10:26 | PROVIDER PROGRESS NOTE ---
Progress Note Pulmonary additional note: I have seen and examined the case, reviewed the EMR, labs, latest images and other medical teams notes. Also reviewed the EVALUATION MANAGER notes and signed necessary form(s). I have noted changes in condition if any from yesterday and did orders. Please see also signed progress sheet. Since Yesterday, he was extubated, tolerated on Bipap, Precedex and Geodon. ABG not done wnad was re-ordered. Prognosis: Guarded for now. I reviewed latest notes from Dr. Mcdonough. Influenza A pneumonia. COPD exacerbation. Hypoxemic and hypercapnic respiratory failure. Pneumonia. Seizure disorder. Polysubstance abuse. Improving ARF. Bipolar disorder. Mild rhabdomyolysis. I asked tax staff accountant about condition changes and if they have any needs in regard to today conditions. I discussed case with yesterday and today with MARC Garcia and KARLA Keyes. I spent 32 minutes in this process.
[2019-07-04] MEDS: TAMIFLU PO SCH (10:44)
[2019-07-04 12:07] LABS: BANDS 2 % (0-1); LYMPHS 10 % (21-51); MONO 6 % (1-9); SEGS 82 % (42-75)
[2019-07-04] MEDS: DEPACON 500 MG in NS 50 ML IV SCH ×2 (12:52→20:04)
[2019-07-04] MEDS ORDERED: NS 1,000 ML IV SCH (16:15)
[2019-07-04] MEDS ORDERED: NICODERM PATCH TD PRN (17:39)
[2019-07-04] MEDS: CLINIMIX E 4.25%-5% SOLUTION 1,000 ML IV SCH (18:37)
[2019-07-04 19:54] LABS: CALCIUM 9.5 mg/dL (8.8-10.2); CREATININE 2.4 mg/dL (0.7-1.2); POTASSIUM 3.3 mmol/L (3.5-5.1)
[2019-07-04] MEDS: D5W 1,000 ML IV SCH (20:03)
[2019-07-04] MEDS: MARINOL PO SCH (20:14)
[2019-07-05] MEDS: CLINIMIX E 4.25%-5% SOLUTION 1,000 ML IV SCH ×2 (00:01→06:47)
[2019-07-05] MEDS: DEPACON 500 MG in NS 50 ML IV SCH ×2 (00:09→05:26)
[2019-07-05] MEDS: HALDOL IV PRN ×2 (01:03→20:59)
[2019-07-05] MEDS: ZOSYN 3.375 GM in NS 50 ML IV SCH ×4 (03:17→20:50)
[2019-07-05] MEDS: DUONEB (A & A) INH SCH ×5 (03:55→23:48)
[2019-07-05 05:12] LABS: ALLEN TEST YES; BLOOD TYPE ARTERIAL; HCO3-(ACT) 33.5 mmoll (20.0-26.0); METHB 0.6 % (0.0-1.5); O2(CT) 21.6 mL/dL (15.0-23.0); O2HB 97.7 % (95.0-99.0); PO2(98.6) 122 mmHg (60-100); SAMPLE BLOOD; SAO2 99.1 % (95.0-100.0); THB 15.6 g/dL (11.5-17.4); pH(98.6) 7.42 (7.35-7.45)
[2019-07-05 05:13] LABS: MODALITY BI PAP; PCO2(98.6) 59 mmHg (35-45)
[2019-07-05 06:47] LABS: HEMATOCRIT 47.5 % (42.0-52.0); HEMOGLOBIN 14.5 g/dL (14.0-18.0); IMM GRAN# 0.03 X1000 (0.0-0.04); IMM GRAN% 0.2 % (0.0-0.5); LYMPH% 6.5 % (20.5-51.1); MCH 28.1 PG (27-31); MCHC 30.5 g/dL (33-37); MCV 92.1 FL (81-99); MONO# 1.11 X1000 (0.11-0.59); MONO% 8.1 % (1.7-9.3); MPV 9.5 FL (7.4-10.4); NEUT# 11.73 X1000 (1.4-6.5); NEUT% 85.2 % (42.2-75.2); PLT 224 X1000 (130-400); RBC 5.16 XMIL (4.7-6.1); RDW 15.9 % (11.5-14.5); WBC 13.77 X1000 (4.8-10.8)
[2019-07-05 06:53] LABS: INR 2.23; PROTIME 25.3 Seconds (11.0-16.0)
[2019-07-05 06:54] LABS: PTT 33.9 Seconds (22.3-41.8)
--- NOTE | 2019-07-05 06:58 | Diag Imaging Result Doc PS360 ---
CHEST-1 VIEW - 07/05/2019 INDICATION: SOB COMPARISON: 07/04/2019 FINDINGS: There is increasing bandlike atelectasis in the left lung base. Lung volumes remain severely low. Heart size is normal. No pneumothorax or pleural effusion. IMPRESSION: Severely low lung volumes. Increasing atelectasis in the left lung base. Electronically signed by Diaz Bejarano 07/05/2019 6:56 AM
[2019-07-05 07:20] LABS: ALB/GLOB RATIO 1.1; ALBUMIN 3.4 g/dL (3.5-5.0); CALCIUM 9.3 mg/dL (8.8-10.2); CREATININE 2.1 mg/dL (0.7-1.2); MAGNESIUM 2.5 mg/dL (1.5-2.7); PHOSPHORUS 4.4 mg/dL (2.7-4.5); POTASSIUM 3.2 mmol/L (3.5-5.1); TOTAL BILIRUBIN 0.86 mg/dL (0.20-1.00); TOTAL PROTEIN 6.4 g/dL (6.3-8.3)
[2019-07-05 07:49] LABS: CK INDEX 0.2 (0.0-2.5); CK-MB 14.44 ng/mL (0.0-5.0)
[2019-07-05] MEDS: MARINOL PO SCH ×3 (07:55→21:37)
[2019-07-05] MEDS: GEODON IM SCH ×2 (07:57→16:50)
[2019-07-05] MEDS: D5W 1,000 ML IV SCH (07:58)
[2019-07-05] MEDS: PROTONIX IV SCH ×2 (08:01→20:49)
[2019-07-05] MEDS: STERILE WATER INJ. INJ SCH (08:07)
[2019-07-05] MEDS: SOLU-MEDROL IV SCH (08:07)
--- NOTE | 2019-07-05 10:34 | PROVIDER PROGRESS NOTE ---
Progress Note Dr. Jackson Progress Note/Pulmonary and or critical care We appreciated progress of care, Complications, change in diagnosis, and instructions to patient under direct supervision of Dr. Jackosn. Subjective: We note the level of consciousness, bed (chair) position, family presence (if any), level of lethargy, feeling of symptoms, and changes from baseline condition/symptom. The patient is on a NC 6L. He is lethargic, but a lot more alert and less restless. He gets upset at times, but not as violent as in last two days. VSs stable and WNL. He states he is hungry. Pudding and gel provided. He has been drinking liquid overnight without difficulty. is at the bedside. Objective: Vital Signs: We reviewed EMR current values for Pulse rate, Blood pressure, Pulse rate, respiratory rate and Pulse oximetry. Also noted other values and trends if present (e.g. I/O, CVP). Vital Signs 07/04/19 14:00 07/04/19 14:31 07/04/19 14:33 Temperature Pulse Rate 109 H 108 H 115 H Respiratory Rate 18 16 29 H Blood Pressure 172/99 182/88 O2 Sat by Pulse Oximetry 93 L 92 L 95 07/04/19 16:00 07/04/19 16:17 07/04/19 16:33 Temperature 103 F H Pulse Rate 116 H 125 H Respiratory Rate 35 H 29 H Blood Pressure 105/63 114/97 O2 Sat by Pulse Oximetry 92 L 92 L 07/04/19 17:02 07/04/19 17:33 07/04/19 17:34 Temperature Pulse Rate 109 H 103 H 99 H Respiratory Rate 32 H 19 31 H Blood Pressure 126/93 129/78 O2 Sat by Pulse Oximetry 92 L 96 92 L 07/04/19 18:00 07/04/19 18:34 07/04/19 19:02 Temperature Pulse Rate 95 H 92 H 82 Respiratory Rate 26 H 21 23 Blood Pressure 119/93 123/95 O2 Sat by Pulse Oximetry 94 L 95 94 L 07/04/19 19:32 07/04/19 20:00 07/04/19 20:02 Temperature 99.6 F 99.6 F Pulse Rate 93 H 95 H 95 H Respiratory Rate 38 H 25 H 25 H Blood Pressure 115/97 144/116 144/116 O2 Sat by Pulse Oximetry 84 L 94 L 94 L 07/04/19 20:33 07/04/19 21:33 07/04/19 22:03 Temperature Pulse Rate 90 82 91 H Respiratory Rate 20 19 24 Blood Pressure 136/98 88/70 145/115 O2 Sat by Pulse Oximetry 83 L 95 87 L 07/04/19 22:49 07/04/19 23:18 07/04/19 23:34 Temperature Pulse Rate 94 H 97 H 103 H Respiratory Rate 22 23 31 H Blood Pressure 158/99 151/117 198/75 O2 Sat by Pulse Oximetry 88 L 93 L 93 L 07/05/19 00:00 07/05/19 00:03 07/05/19 00:32 Temperature 98.4 F 98.4 F Pulse Rate 93 H 95 H 94 H Respiratory Rate 21 22 20 Blood Pressure 182/98 161/117 157/91 O2 Sat by Pulse Oximetry 93 L 94 L 93 L 07/05/19 01:08 07/05/19 02:00 07/05/19 02:09 Temperature Pulse Rate 93 H 85 91 H Respiratory Rate 21 20 21 Blood Pressure 182/98 155/108 155/108 O2 Sat by Pulse Oximetry 93 L 92 L 07/05/19 03:22 07/05/19 04:00 07/05/19 04:27 Temperature 96.7 F L 96.7 F L Pulse Rate 93 H 89 89 Respiratory Rate 23 16 16 Blood Pressure 193/121 164/116 164/116 O2 Sat by Pulse Oximetry 100 99 99 07/05/19 04:41 07/05/19 05:05 07/05/19 05:06 Temperature Pulse Rate 76 92 H 92 H Respiratory Rate 15 30 H 19 Blood Pressure 147/95 169/88 O2 Sat by Pulse Oximetry 99 97 100 07/05/19 05:32 07/05/19 06:00 07/05/19 06:33 Temperature Pulse Rate 87 102 H 92 H Respiratory Rate 20 26 H 23 Blood Pressure 184/87 176/78 178/86 O2 Sat by Pulse Oximetry 100 98 96 07/05/19 07:33 07/05/19 08:00 07/05/19 08:15 Temperature 98.3 F Pulse Rate 111 H 97 H Respiratory Rate 29 H 21 Blood Pressure 184/122 171/96 O2 Sat by Pulse Oximetry 91 L 95 07/05/19 08:24 07/05/19 09:02 07/05/19 10:00 Temperature Pulse Rate 109 H 96 H 70 Respiratory Rate 18 21 15 Blood Pressure 178/99 166/95 O2 Sat by Pulse Oximetry 92 L 92 L 93 L Intake & Output 07/04/19 07/05/19 07/05/19 19:59 07:59 19:59 Intake Total 931 / 4591 3660 / 4591 Output Total 600 2019 Balance 331 / 2571 2240 / 2571 Intake: Intake, IV Amount 75 / 1275 1200 / 1275 Intake, IVPB 150 / 450 300 / 450 Intake, Other Amount 231 / 231 Intake, IV Electrolyte Infusion 1200 / 1200 Intake, TPN/PPN Amount 475 / 475 Intake, Oral Amount 960 / 960 Output: Output, Urine [place] Amount 2019 Physical Examination: General: Less restless, but still get upset at times. No acute distress noted. at the bedside. HEENT: Trachea midline. Mucosa pink and moist. Poor dentition. Chest: Even and unlabored. Symmetrical excursion. Auscultation reveals diminished breathing sounds and mild inspiratory crackles LLL. CVS: Regular rate and rhythm. Abdomen: Soft. Mildly distended. Bowel sounds present. Extremities: BUE trace edema. Dorsalis pedis diminished b/l. Neuro: Lethargic. Answering simple questions appropriately and following simple commands. Labs and Radiology: Reviewed available labs and radiology values available at time of EMR review. Laboratory Results 07/04/19 07/04/19 07/05/19 17:39 17:39 04:30 WBC RBC Hgb Hct MCV MCH MCHC RDW Std Deviation Plt Count MPV Immature Gran % (Auto) Neut % (Auto) Lymph % (Auto) [place] % (Auto) Eos % (Auto) Baso % (Auto) Immature Gran # (Auto) Neut # (Auto) Lymph # (Auto) [place] # (Auto) Eos # (Auto) Baso # (Auto) PT INR PTT (Actin FS) Specimen Type Sample Site pH pCO2 pO2 HCO3 Base Excess Oxyhemoglobin ABG O2 Sat (Calculated) ABG O2 Saturation ABG Carboxyhemoglobin ABG Methemoglobin Kaden Test A-a O2 Difference Total Hemoglobin Lactate Blood Gas Modality Vent Mode FiO2 % Inspiratory BiPAP Expiratory BiPAP Sodium 158 H 154 H Potassium 3.3 L 3.2 L Chloride 108 H 104 Carbon Dioxide 33 32 Anion Gap 17 18 BUN 61 H 62 H Creatinine 2.4 H 2.1 H Estimated GFR/1.73 m2 29 34 BUN/Creatinine Ratio 25 30 Glucose 109 H 140 H Calculated Osmolality 331 325 Calcium 9.5 9.3 Phosphorus 4.4 Magnesium 2.5 Total Bilirubin 0.86 AST 181 H ALT 38 Alkaline Phosphatase 57 Creatine Kinase Creatine Kinase Index CK-MB (CK-2) Total Protein 6.4 Albumin 3.4 L Globulin 3.0 Albumin/Globulin Ratio 1.1 Valproic Acid 27.00 L 07/05/19 07/05/19 07/05/19 04:30 04:30 04:30 WBC 13.77 H RBC 5.16 Hgb 14.5 Hct 47.5 MCV 92.1 MCH 28.1 MCHC 30.5 L RDW Std Deviation 15.9 H Plt Count 224 MPV 9.5 Immature Gran % (Auto) 0.2 Neut % (Auto) 85.2 H Lymph % (Auto) 6.5 L [place] % (Auto) 8.1 Eos % (Auto) 0.0 Baso % (Auto) 0.0 Immature Gran # (Auto) 0.03 Neut # (Auto) 11.73 H Lymph # (Auto) 0.90 L [place] # (Auto) 1.11 H Eos # (Auto) 0.00 Baso # (Auto) 0.00 PT 25.3 H INR 2.23 PTT (Actin FS) 33.9 Specimen Type Sample Site pH pCO2 pO2 HCO3 Base Excess Oxyhemoglobin ABG O2 Sat (Calculated) ABG O2 Saturation ABG Carboxyhemoglobin ABG Methemoglobin Kaden Test A-a O2 Difference Total Hemoglobin Lactate Blood Gas Modality Vent Mode FiO2 % Inspiratory BiPAP Expiratory BiPAP Sodium Potassium Chloride Carbon Dioxide Anion Gap BUN Creatinine Estimated GFR/1.73 m2 BUN/Creatinine Ratio Glucose Calculated Osmolality Calcium Phosphorus Magnesium Total Bilirubin AST ALT Alkaline Phosphatase Creatine Kinase 6116 H D Creatine Kinase Index 0.2 CK-MB (CK-2) 14.44 H D Total Protein Albumin Globulin Albumin/Globulin Ratio Valproic Acid 07/05/19 04:55 WBC RBC Hgb Hct MCV MCH MCHC RDW Std Deviation Plt Count MPV Immature Gran % (Auto) Neut % (Auto) Lymph % (Auto) [place] % (Auto) Eos % (Auto) Baso % (Auto) Immature Gran # (Auto) Neut # (Auto) Lymph # (Auto) [place] # (Auto) Eos # (Auto) Baso # (Auto) PT INR PTT (Actin FS) Specimen Type ARTERIAL Sample Site R RADIAL pH 7.42 pCO2 59 H* pO2 122 H HCO3 33.5 H Base Excess 11.0 H Oxyhemoglobin 97.7 ABG O2 Sat (Calculated) 21.6 ABG O2 Saturation 99.1 ABG Carboxyhemoglobin 0.80 ABG Methemoglobin 0.6 Kaden Test YES A-a O2 Difference 375.0 Total Hemoglobin 15.6 Lactate 2.00 Blood Gas Modality BI PAP Vent Mode BIPAP FiO2 % 80.0 Inspiratory BiPAP 20.0 Expiratory BiPAP 6.0 Sodium Potassium Chloride Carbon Dioxide Anion Gap BUN Creatinine Estimated GFR/1.73 m2 BUN/Creatinine Ratio Glucose Calculated Osmolality Calcium Phosphorus Magnesium Total Bilirubin AST ALT Alkaline Phosphatase Creatine Kinase Creatine Kinase Index CK-MB (CK-2) Total Protein Albumin Globulin Albumin/Globulin Ratio Valproic Acid Dr. Jackson evaluated and additional note below. Evaluation time in minutes: 34 minutes. Assessment: Influenza A COPD exacerbation Hypoxemic and hypercapnic respiratory failure LLL minimal atelectasis +/- pneumonia with low lung volumes. Worsened. Seizure disorder Polysubstance abuse Ongoing tobacco use Acute kidney injury. Bipolar disorder Rhabdomyolysis. Worsening with CK up to 6116 this am. Plan: Continue current treatment and supportive care per admitting and other teams on the case. Antibiotics. Tamiflu Steroid. Tapering down. Bronchodilators. Appropriate DVT and GI prophylaxis. Input was appreciated from Admitting MD and other teams on the case. See additional notes by Dr. Jackson.
--- NOTE | 2019-07-05 10:39 | PROVIDER PROGRESS NOTE ---
Progress Note Pulmonary additional note: I have seen and examined the case, reviewed the EMR, labs, latest images and other medical teams notes. Also reviewed the MACHINE FILLER notes and signed necessary form(s). I have noted changes in condition if any from yesterday and did orders. Please see also signed progress sheet. Since Yesterday, he is tolerating Bipap, Precedex (off label use because of severe delerium that is poorly controlled with other agents) and Geodon. He has a severe case of delerium and neurology seen and started Valproate. Prognosis: Guarded for now. Psychosis and delerium will be a significant fdc determinant. I reviewed latest notes from Dr. Mcdonough. I discussed the case with him yesterday. Influenza A pneumonia. COPD exacerbation. Hypoxemic and hypercapnic respiratory failure. Pneumonia. Seizure disorder. Polysubstance abuse. Improving ARF. Bipolar disorder. Severe delerium. I asked staff developer about condition changes and if they have any needs in regard to today conditions. I discussed case with yesterday over the phone. I spent 35 minutes in this process.
--- NOTE | 2019-07-05 12:13 | PROGRESS NOTE ---
DATE: 07/05/2019 SUBJECTIVE: We have some history that he has [facility]. Recent medications are reported to include oxcarbazepine. Mr. Cary told me he does not know the names of his medicines, but he denies recent alcohol use and any illicit drug use, other than cannabis. He reports Depakote made him sick in the past, but he cannot recall details. He recalls taking gabapentin some years ago. He reports his last "seizure" was 3 years ago and was associated with anxiety. OBJECTIVE: Mr. Cary is awake, alert, attentive at times, answering questions appropriately. He was not able to identify this hospital by name but did recognize that he is in the hospital. I do not see any obvious focal problem on brief bedside testing today. I do not find a language deficit on brief bedside testing. Lab shows sodium 158, and then 154. BUN has climbed into the 60s. IMPRESSION: Agitated state is much improved today. Explanations for the agitation are not certain and are likely multiple. He has apparently had agitation associated with opiates in the past. He might have had substance ingestion prior to admission that we have not discovered. Agitation can be a paradoxical effect of dexmedetomidine, but I doubt that is significant. He has receieved haloperidol 5 mg several doses per day. He has had ziprasidone 20 mg 1 dose daily. We added IV valproate yesterday and level is 27 today. I do not see anything else on current medication list that would likely have DIRECTOR OF PUBLICATIONS effect. [place] catheter is in place so he should not be having full bladder contributing to agitation. Since he is awake and alert and able to swallow now and he reports possible previous adverse effect with divalproex, I will stop the IV valproate. I will add oxcarbazepine 300 mg b.i.d. If we can determine the prior oxcarbazepine dose, we can resume that. Thanks for asking Neurology to see Mr. Cary. cc: MD FITZ Campbell III
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
[2019-07-05] MEDS: TRILEPTAL PO SCH ×2 (13:52→21:37)
--- NOTE | 2019-07-05 14:17 | PROGRESS NOTE ---
DATE: 07/05/2019 SUBJECTIVE: This morning Mr. Cary refers to be doing well; denies any new complaints. Of note, Mr. Cary got extubated on the , and he has been cycling between BiPAP and nasal cannula. This morning, he was seen on nasal cannula. He said he was doing well. He has also been given diet and he has tolerated that well. OBJECTIVE: Vital signs: Blood pressure is 166/95, pulse of 70, respirations 15, temperature is 98.5 degrees. General exam: Mr. Cary is a 48-year=-old gentleman. He is in bed. He is not in any distress. HEENT: Mucosa is pink and moist. Anicteric. Acyanotic. Neck: Supple. Chest: Good air entry bilaterally. No crepitations. No rhonchi. Cardiovascular: Regular rate and rhythm. GI/Abdomen: Soft. Extremities: No pedal edema. The patient is in soft restraints in the upper extremities. ANALOG DESIGN ENGINEER: Patient is awake, alert, and follows basic commands. LABORATORY DATA: 1. WBC is down to 13.77. Rest of CBC is unremarkable ABG shows a pCO2 of 59. This was on the BiPAP. 2. Chemistry shows a sodium of 154. X-RAY DATA: A chest x-ray this morning shows severely low lung volumes. Increase in atelectasis in the lung bases. MEDICATIONS: Have also been reviewed. The patient is still on Zosyn. MICROBIOLOGY DATA: Blood cultures have been 5 days negative. Influenza A was positive. ASSESSMENT: 1. Acute hypoxemic and hypercarbic respiratory failure. The patient continues to cycle between BiPAP and nasal cannula. 2. Chronic obstructive pulmonary disease in exacerbation. 3. Influenza A. Patient has completed treatment with Tamiflu. 4. Questionable seizures at home. Patient has not had any more seizures during the hospital course, has been evaluated by Neurology. He has been started back on Trileptal. 5. Rhabdomyolysis. Creatinine kinase continues to go up. This is complicated with acute kidney injury. Nephrology is on board. 6. History of hepatitis C. 7. Global encephalopathy. PLAN: In general, I think Mr. Cary seems to be more alert and more conversational this morning. We are going to transfer him from the ICU to [facility]. Continue with the hydration for the rhabdomyolysis and the HEIKE. Mr. Luis Daniel has been started on healthy heart diet, and he seems to have tolerated this morning. cc: Mark Hector MD
[2019-07-05] MEDS: TYLENOL PO PRN (19:28)
[2019-07-05] MEDS ORDERED: CALMOSEPTINE OINTMENT TOP PRN (20:37)
[2019-07-05] MEDS: SODIUM CHLORIDE 0.9% INJ SCH (20:49)
[2019-07-06] MEDS: STERILE WATER INJ. INJ SCH ×3 (00:01→10:22)
[2019-07-06] MEDS: D5W 1,000 ML IV SCH (00:03)
[2019-07-06] MEDS: ZOSYN 3.375 GM in NS 50 ML IV SCH ×4 (03:14→20:47)
[2019-07-06] MEDS: HALDOL IV PRN ×2 (03:14→12:43)
[2019-07-06] MEDS: DUONEB (A & A) INH SCH ×7 (03:36→23:56)
[2019-07-06 04:18] LABS: ALLEN TEST YES; BE 13.4 mmoll (-3.0-3.0); BLOOD TYPE ARTERIAL; HCO3-(ACT) 35.2 mmoll (20.0-26.0); METHB 0.8 % (0.0-1.5); O2(CT) 16.6 mL/dL (15.0-23.0); PO2(98.6) 51 mmHg (60-100); SAMPLE BLOOD; SAO2 91.4 % (95.0-100.0); THB 13.3 g/dL (11.5-17.4); pH(98.6) 7.49 (7.35-7.45)
[2019-07-06 04:27] LABS: PCO2(98.6) 51 mmHg (35-45)
[2019-07-06 04:28] LABS: MODALITY CANNULA
--- NOTE | 2019-07-06 07:22 | Diag Imaging Result Doc PS360 ---
EXAM: CHEST-1 VIEW HISTORY: SOB TECHNIQUE: Single view COMPARISON: 07/05/2019 FINDINGS: The lungs are well expanded. Near-complete clearing of the left basilar atelectasis. The heart is not enlarged. The vessels are not distended. There are no infiltrates. No effusion identified. The right hemidiaphragm is elevated. IMPRESSION: Interval improvement Electronically signed by Isreal Naik 07/06/2019 7:19 AM
[2019-07-06] MEDS: GEODON IM SCH ×3 (07:32→15:35)
[2019-07-06] MEDS: SOLU-MEDROL IV SCH (08:06)
[2019-07-06] MEDS: SODIUM CHLORIDE 0.9% INJ SCH (08:06)
[2019-07-06] MEDS: PROTONIX IV SCH ×2 (08:06→20:47)
[2019-07-06] MEDS: MARINOL PO SCH ×2 (08:12→20:52)
[2019-07-06 08:31] LABS: BASO% 0.1 % (0.0-0.8); EOS# 0.08 X1000 (0.0-0.7); MCH 28.6 PG (27-31)
[2019-07-06 08:51] LABS: ANISOCYTOSIS 1+; EOS 1 % (1-10); LYMPHS 8 % (21-51); MONO 5 % (1-9); SEGS 86 % (42-75)
[2019-07-06 08:52] LABS: HYPOCHROM 1+; LARGE PLATELETS OCCASIONAL
[2019-07-06 09:51] LABS: BASO# 0.01 X1000 (0.0-0.2); EOS% 0.5 % (0.0-10.0); HEMATOCRIT 40.6 % (42.0-52.0); HEMOGLOBIN 12.9 g/dL (14.0-18.0); IMM GRAN# 0.03 X1000 (0.0-0.04); IMM GRAN% 0.2 % (0.0-0.5); LYMPH# 0.94 X1000 (1.2-3.4); LYMPH% 6.3 % (20.5-51.1); MCHC 31.8 g/dL (33-37); MONO# 0.64 X1000 (0.11-0.59); MONO% 4.3 % (1.7-9.3); NEUT# 13.17 X1000 (1.4-6.5); NEUT% 88.6 % (42.2-75.2); PLT 179 X1000 (130-400); RBC 4.51 XMIL (4.7-6.1); RDW 15.1 % (11.5-14.5); WBC 14.87 X1000 (4.8-10.8)
[2019-07-06 10:12] LABS: AGAP 13; BUN 31 mg/dL (8-22); CHLORIDE 97 mmol/L (98-107); COSMO 293; GLUCOSE 163 mg/dL (70-104); SODIUM 142 mmol/L (136-145); TCO2 32 mmol/L (25-35)
[2019-07-06 10:13] LABS: ALB/GLOB RATIO 1.2; ALKALINE PHOSPHATASE 47 U/L (32-122); CALCIUM 8.6 mg/dL (8.8-10.2); CK TOTAL 4572 U/L (24-204); CREATININE 1.4 mg/dL (0.7-1.2); GOT 202 U/L (10-34); GPT 46 U/L (10-44); TOTAL BILIRUBIN 1.01 mg/dL (0.20-1.00); TOTAL PROTEIN 5.6 g/dL (6.3-8.3)
[2019-07-06] MEDS: TRILEPTAL PO SCH ×2 (10:22→20:47)
[2019-07-06] MEDS: POTASSIUM CHLORIDE 20 MEQ in D5W 1,000 ML IV SCH (14:10)
--- NOTE | 2019-07-06 17:09 | PROGRESS NOTE ---
DATE: 07/06/2019 SUBJECTIVE: This morning, Mr. Cary refers to be doing a lot better. He has been up and gone to use the bathroom. The nurses helped him to take a shower this morning. He also said he has tolerated his diet. OBJECTIVE: Vital signs: Blood pressure is 147/83, pulse of 77, respiration is 16, temperature is 98.1 degrees. General: Mr. Cary, a 48-year-old, gentleman. He is back in bed. He is not in any cardiopulmonary distress. He is still on nasal cannula 6 L for oxygenation. His mucosa is pink and moist. Anicteric, acyanotic. Neck: Supple. Respiratory System: Good air entry bilaterally. Did not hear any crackles. Some distant rhonchi. Cardiovascular: Regular rate and rhythm. No murmurs, no rubs, no gallops. Gastrointestinal: Abdomen is soft, nontender. Bowel sounds present. There is no hepatosplenomegaly. Extremities: No pedal edema. Central nervous system: Awake, alert. Follows basic commands. LABORATORY DATA: Patient's I's and O's, urine output was 3725. He is currently positive balance of over 3000. WBC is 14.87, hemoglobin is 12.9, platelet count of 179,000. No bands on the peripheral smear. Chemistry is also reviewed, potassium is 3.0, creatinine is down to 1.4, and CK is down to 4572. ALT is minimally elevated, AST is also minimally elevated. CURRENT MEDICATIONS: Have all been reviewed. He continues to be on Zosyn. ASSESSMENT: 1. Acute hypoxemic and hypercarbic respiratory failure. The patient is currently on nasal cannula. His ABG this morning, continues to show hypercarbia and hypoxemia. He is going to be using the BiPAP intermittently, especially to sleep. 2. Chronic obstructive pulmonary disease, in exacerbation. We will continue with standard of care. 3. Influenza A. The patient has completed treatment with Tamiflu. 4. Seizures. The patient has been evaluated by Neurology. He has been started on antiseizure medications. 5. Rhabdomyolysis. Creatinine is trending down. 6. Nonoliguric acute kidney injury. Improving. 7. History of hepatitis C. Improving. 8. Hyperactive delirium. The patient's mentation has significantly improved. PLAN: In general, I think Mr. Luis Daniel is gradually getting better. CO2 is trending down. We are going to continue using the BiPAP, especially at night. We will use supplemental oxygen during the day. We will also continue with his current antimicrobial coverage and repeat his laboratory data for tomorrow. cc: Mark Hector MD
--- NOTE | 2019-07-06 23:51 | PULMONOLOGY PROGRESS NOTE ---
DATE: 07/06/2019 SUBJECTIVE: Mr. Cary states that he is feeling a lot better. OBJECTIVE: Vital Signs: Blood pressure is 147/80 with heart rate of 88, respirations 20, temperature is 98.1 degrees axillary with O2 saturations 95 to 97 percent on 6 L nasal cannula. Cardiovascular: Regular rate and rhythm. S1 and S2 appreciated. No rubs, murmurs or gallops. No lower extremity edema. Pulmonary: Breath sounds are clear. No increased work of breathing noted. Chest rises and falls symmetric with respiration. Gastrointestinal: Abdomen is soft, nontender, nondistended with bowel sounds in all 4 quadrants. Neurologic: He is alert and oriented. LABORATORIES: 1. WBC is 14.8 with hemoglobin 12.9, hematocrit 40.6 and platelets 179,000. Sodium 142, potassium 3, BUN 31, creatinine 1.4 with a glucose of 163. CPK is 4572. 2. Chest x-ray reveals lungs are well expanded, near-complete clearing of the left basilar atelectasis. Heart is not enlarged. Vessels are not distended. There are no infiltrates. No effusion identified. ASSESSMENT: 1. Influenza A. 2. Chronic obstructive pulmonary disease exacerbation. 3. Hypoxemic hypercapnic respiratory failure. 4. Left lower lobe atelectasis plus or minus pneumonia. 5. Ongoing tobacco use. 6. Acute kidney injury. 7. Rhabdomyolysis with slightly improving CPK. 8. History of hepatitis C. PLAN: We are going to continue using BiPAP at night with supplemental oxygen through the day. Trend ABGs. Continue bronchodilators as well as steroids to taper. continue Tamiflu. Antibiotics as per primary team. Plan was discussed with Dr. Watson. Dictated by KARLA Thomas for Anibal Watson MD cc: KARLA Thomas MD [facility]
[2019-07-07] MEDS: GEODON IM SCH ×2 (01:14→09:39)
[2019-07-07] MEDS: POTASSIUM CHLORIDE 20 MEQ in D5W 1,000 ML IV SCH ×2 (02:15→21:31)
[2019-07-07] MEDS: DUONEB (A & A) INH SCH ×7 (03:44→23:21)
[2019-07-07] MEDS: ZOSYN 3.375 GM in NS 50 ML IV SCH ×4 (04:29→21:30)
[2019-07-07 05:32] LABS: ALLEN TEST YES; BE 11.6 mmoll (-3.0-3.0); BLOOD TYPE ARTERIAL; HCO3-(ACT) 33.9 mmoll (20.0-26.0); METHB 0.9 % (0.0-1.5); O2(CT) 16.9 mL/dL (15.0-23.0); O2HB 94.7 % (95.0-99.0); PCO2(98.6) 48 mmHg (35-45); PO2(98.6) 73 mmHg (60-100); SAMPLE BLOOD; THB 12.7 g/dL (11.5-17.4); pH(98.6) 7.49 (7.35-7.45)
[2019-07-07 05:33] LABS: MODALITY CANNULA
[2019-07-07 05:54] LABS: HEMATOCRIT 36.9 % (42.0-52.0); HEMOGLOBIN 11.8 g/dL (14.0-18.0); MCH 28.7 PG (27-31); MCV 89.8 FL (81-99); MPV 9.6 FL (7.4-10.4); RBC 4.11 XMIL (4.7-6.1); RDW 15.1 % (11.5-14.5)
[2019-07-07 06:31] LABS: AGAP 12; ALB/GLOB RATIO 1.2; ALKALINE PHOSPHATASE 53 U/L (32-122); BUN 17 mg/dL (8-22); CALCIUM 8.4 mg/dL (8.8-10.2); CHLORIDE 97 mmol/L (98-107); COSMO 284; CREATININE 1.2 mg/dL (0.7-1.2); ESTIMATED GFR > 60; GLUCOSE 118 mg/dL (70-104); GOT 211 U/L (10-34); GPT 49 U/L (10-44); MAGNESIUM 1.7 mg/dL (1.5-2.7); POTASSIUM 2.8 mmol/L (3.5-5.1); SODIUM 141 mmol/L (136-145); TCO2 32 mmol/L (25-35); TOTAL BILIRUBIN 0.75 mg/dL (0.20-1.00); TOTAL PROTEIN 5.5 g/dL (6.3-8.3)
[2019-07-07 06:36] LABS: PHOSPHORUS 0.8 mg/dL (2.7-4.5)
[2019-07-07] MEDS ORDERED: POTASSIUM PHOSPHATE 30 MMOL in NS 250 ML IV ONE (06:41)
[2019-07-07 06:58] LABS: CK TOTAL 6949 U/L (24-204)
--- NOTE | 2019-07-07 07:13 | Diag Imaging Result Doc PS360 ---
EXAM: CHEST-1 VIEW 07/07/2019 HISTORY: SOB TECHNIQUE: AP portable at 0604 COMMENT: There is platelike atelectasis in the right lower lobe which was not present on 07/06/2019. Otherwise there has been no significant change. IMPRESSION: Right lower lobe atelectasis. Electronically signed by Raphael Germain 07/07/2019 7:11 AM
[2019-07-07] MEDS: PROTONIX IV SCH (09:39)
[2019-07-07] MEDS: SOLU-MEDROL IV SCH (09:39)
[2019-07-07] MEDS: SODIUM CHLORIDE 0.9% INJ SCH (09:39)
[2019-07-07] MEDS: STERILE WATER INJ. INJ SCH (09:40)
[2019-07-07] MEDS: MARINOL PO SCH ×2 (09:57→21:31)
[2019-07-07] MEDS: TRILEPTAL PO SCH ×2 (11:08→21:31)
--- NOTE | 2019-07-07 15:23 | PROGRESS NOTE ---
DATE: 07/07/2019 SUBJECTIVE: Today Mr. Cary refers to be doing well. He had mom and two grandkids at the bedside at the time of the encounter. He said his breathing is significantly improved. However, if he takes the nasal cannula off he desaturates. OBJECTIVE: Vital signs: Blood pressure is 185/103, pulse of 103, respirations 20, temperature 98.5 degrees. The patient was saturating around 95% on 6 L. General: Mr. Cary is a 48-year- old gentleman. He was in bed. No distress. HEENT: Mucosa is pink and moist. Anicteric. Acyanotic. Neck: Supple. Chest: Good air entry bilateral. Some mild crackles and rhonchi in the posterior lung hector. Cardiovascular: Regular rate and rhythm. No murmurs, no rubs, no gallops. Gastrointestinal: Abdomen was soft. Bowel sounds present. Extremities: No pedal edema. Central Nervous System: Patient was awake, alert, follows commands. LABORATORY DATA: WBC is down to 10, rest of CBC is unremarkable. Chemistry is also reviewed. Potassium is 2.8 and phosphorus is 0.8. Rest of chemistry is unremarkable. IMAGING: A chest x-ray this morning shows right lower lobe atelectasis. ASSESSMENT: 1. Acute hypoxemic and hypercarbic respiratory failure, improved. Patient is currently on nasal cannula, uses BiPAP at night. 2. Chronic obstructive pulmonary disease with moderate to severe exacerbation on admission, improved. 3. Influenza A infection. Patient is treated with a five-day course of Tamiflu. This has been discontinued. 4. Seizures. The patient has been evaluated by Neurology. He is currently on Trileptal (oxcarbazepine). The patient has not had any more seizures during the hospital course. 5. Nonoliguric acute kidney injury, resolved. Creatinine has normalized. 6. Rhabdomyolysis. We will continue trending the CK. 7. History of hepatitis C. 8. Hyperactive delirium during the hospital course, improved. 9. Electrolyte abnormality including severe hypophosphatemia and hypokalemia, to rule out refeeding syndrome. We are going to replenish these electrolytes and repeat them for tomorrow. PLAN: So for today, we are going to get Mr. Cary up. Encourage him to get up with assistance. We will also get Physical Therapy to start working with him. Disposition will probably be on Tuesday. cc: Mark Hector MD
--- NOTE | 2019-07-07 19:48 | PULMONOLOGY PROGRESS NOTE ---
DATE: 07/07/2019 SUBJECTIVE: Mr. Cary states he is feeling a lot better today. He has been walking up to the room and walked out the casanova. He is more oriented today. OBJECTIVE: Vital Signs: Blood pressure is 93/90 with a heart rate of 86, respirations are 20, temperature is 97.7 degrees with O2 saturations that are 100% on 6 L nasal cannula. Pulmonary: Breath sounds are clear with no increased work of breathing noted. Chest rise and fall symmetric respiration. Cardiovascular: Regular rate and rhythm. S1 and S2 appreciated. He has no lower extremity edema. Calves are nontender bilateral with peripheral pulses palpable x4 extremities. Gastrointestinal: Abdomen soft, nontender, nondistended. Bowel sounds in all 4 quadrants. Neurologic: He is alert and oriented. LAB: WBC is 10 with hemoglobin 11.8, hematocrit 36.9, platelets of 171,000. Sodium is 141, potassium 2.8, BUN 17, creatinine 1.2 with a glucose of 118, phosphorus is 0.8 with magnesium 1.7. CPK is 6949. ABGs pH is 7.49 with a pCO2 of 48, PO2 of 73 and bicarb 33.9. This is on 6 L nasal cannula. Lactate is 2.9. Chest x-ray revealed right lower lobe atelectasis. ASSESSMENT AND PLAN: 1. Influenza A. Tamiflu completed. 2. Chronic obstructive pulmonary disease with acute exacerbation. Continue bronchodilators 3. Hypoxemic hypercarbic respiratory failure. Continue supplemental oxygen throughout the day with BiPAP at night. 4. Left lower lobe atelectasis plus or minus pneumonia now with right lower lobe atelectasis Continue Zosyn 5. Ongoing tobacco use. 6. Acute kidney injury resolved. 7. Rhabdomyolysis. 8. History of hepatitis C. 9. Polysubstance abuse. incentive spirometer every 4 hours. Plan was discussed with Dr. Watson. Dictated by KARLA Thomas for Anibal Watson MD cc: KARLA Thomas MD [facility]
[2019-07-08] MEDS: ZOSYN 3.375 GM in NS 50 ML IV SCH ×4 (04:13→21:17)
[2019-07-08 04:23] LABS: ALLEN TEST YES; BE 11.4 mmoll (-3.0-3.0); BLOOD TYPE ARTERIAL; HCO3-(ACT) 33.8 mmoll (20.0-26.0); METHB 1.1 % (0.0-1.5); O2(CT) 16.2 mL/dL (15.0-23.0); O2HB 94.9 % (95.0-99.0); PO2(98.6) 78 mmHg (60-100); SAMPLE BLOOD; SAO2 97.1 % (95.0-100.0); THB 12.1 g/dL (11.5-17.4); pH(98.6) 7.46 (7.35-7.45)
[2019-07-08 04:32] LABS: MODALITY CANNULA; PCO2(98.6) 52 mmHg (35-45)
[2019-07-08] MEDS: DUONEB (A & A) INH SCH ×6 (05:29→23:01)
[2019-07-08 06:36] LABS: HEMATOCRIT 38.2 % (42.0-52.0); HEMOGLOBIN 11.9 g/dL (14.0-18.0); MCH 28.4 PG (27-31); MCHC 31.2 g/dL (33-37); MCV 91.2 FL (81-99); MPV 9.9 FL (7.4-10.4); RBC 4.19 XMIL (4.7-6.1); RDW 15.2 % (11.5-14.5); WBC 9.34 X1000 (4.8-10.8)
--- NOTE | 2019-07-08 07:18 | Diag Imaging Result Doc PS360 ---
EXAM: CHEST-1 VIEW 07/08/2019 HISTORY: SOB TECHNIQUE: AP portable at 0548 COMMENT: There is platelike opacity in the right lower lobe which was also present on 07/07/2019. There is some clearing of linear opacity in the left lower lobe. The heart size and pulmonary vascularity are within normal limits. IMPRESSION: Improved left lower lobe atelectasis. Stable right lower lobe atelectasis. Electronically signed by Raphael Germain 07/08/2019 7:16 AM
[2019-07-08 07:55] LABS: AGAP 13; ALBUMIN 3.3 g/dL (3.5-5.0); BUN 10 mg/dL (8-22); CALCIUM 8.8 mg/dL (8.8-10.2); CHLORIDE 100 mmol/L (98-107); CK TOTAL 4932 U/L (24-204); COSMO 281; CREATININE 1.2 mg/dL (0.7-1.2); ESTIMATED GFR > 60; GLUCOSE 118 mg/dL (70-104); PHOSPHORUS 1.3 mg/dL (2.7-4.5); POTASSIUM 3.1 mmol/L (3.5-5.1); SODIUM 141 mmol/L (136-145); TCO2 28 mmol/L (25-35)
[2019-07-08] MEDS: TRILEPTAL PO SCH ×2 (08:44→21:17)
[2019-07-08] MEDS: MARINOL PO SCH ×2 (08:45→21:17)
[2019-07-08] MEDS: PREDNISONE PO SCH (08:45)
[2019-07-08] MEDS ORDERED: POTASSIUM PHOSPHATE 40 MEQ in NS 250 ML IV ONE (09:30)
--- NOTE | 2019-07-08 11:28 | PROGRESS NOTE ---
DATE: 07/08/2019 SUBJECTIVE: This morning, Mr. Cary was sitting at the edge of the bed. He refers to be doing a lot better. He is still on 6 L of supplemental oxygen. OBJECTIVE: Vital Signs: Blood pressure is 166/98, pulse of 72, respirations 16, temperature is 98.5 degrees. General: Mr. Cary is a 48-year-old, gentleman. He was at the edge of the bed. He was not in any cardiopulmonary distress. HEENT: Mucosa is pink and moist. Anicteric. Acyanotic. Neck: Supple. No JVD. Respiratory: There was good air entry bilaterally. Very minimal crackles in the posterior lung hector. No wheezing. No rhonchi. Cardiovascular: Regular rate and rhythm. No murmurs, no rubs, no gallops. GI: Abdomen was soft, nontender. Bowel sounds present. FNPS: The patient was awake, alert, oriented. No focal deficit. LABORATORY DATA: WBC is down to 9.34, hemoglobin is 11.9, platelet count of 193,000. Chemistry is also reviewed. Potassium is 3.1. Phosphorus is 1.3. Rest of chemistry is unremarkable. The patient's creatine kinase is trending down. INR is 2.23. MEDICATIONS: Current medications have all been reviewed. No changes. ASSESSMENT: 1. Acute hypoxemic and hypercarbic respiratory failure. The patient is doing remarkably well. Currently on nasal cannula, saturating better. 2. Chronic obstructive pulmonary disease with [id number] exacerbation on admission, improving. 3. Influenza A infection. The patient has been treated with a 5-day course of Tamiflu. 4. Seizures at home. The patient has been evaluated by Neurology. He is currently on oxcarbazepine. 5. Nonoliguric acute kidney injury on presentation, resolved. 6. Rhabdomyolysis. CK is trending down. 7. History of hepatitis C. The patient will need to follow with Gastroenterology. 8. Hyperreactive delirium during the hospital course, resolved. 9. Electrolyte abnormality, including hypophosphatemia and hypokalemia. Will continue to replace. 10. Polysubstance abuse. The patient's urine toxicology on presentation was positive for methamphetamine and cannabinoids. He has been advised. 11. Shock on presentation, presumed septic. 12. Supratherapeutic INR on presentation. The patient is currently off Coumadin. INR is therapeutic. I understand he was taking this for atrial fibrillation. His heart rate, however, has been fairly stabilized during the hospital course. In general, I think Mr. Cary is doing a lot better. He was successfully extubated on 07/03/2019, and since then, he seems to be saturating well with different modalities of oxygen devices. He is doing well with physical therapy this morning. He is just on 6 liters of supplemental oxygen. I think he is a potential discharge home on oxygen and also home health, and let him follow up with Pulmonary Medicine and [facility]. We will get [employer] to arrange for possible oxygen for him tomorrow, and re-evaluate him for readiness to be discharged. cc: Mark Hector MD
[2019-07-08] MEDS: NEUTRA-PHOS PO SCH ×3 (12:48→21:17)
--- NOTE | 2019-07-08 16:37 | PULMONOLOGY PROGRESS NOTE ---
DATE: 07/08/2019 SUBJECTIVE: The patient is walking in the casanova. He states that he is doing much better. He is currently on room air and denies any shortness of breath. OBJECTIVE: Vital Signs: Blood pressure is 148/80 with a heart rate of 86, respirations are 18, temperature is 98.2 degrees with room air saturations that are 91% to 96%. HEENT: Head is normocephalic, atraumatic. Pupils equal, round, react to light. Sclerae anicteric. Mucous membranes are moist. Neck: Supple with no JVD. Trachea is midline. Cardiovascular: Regular rate and rhythm. S1, S2 appreciated. No rubs or murmurs. He has no lower extremity edema. Calves are nontender bilateral. Peripheral pulses palpable. Nontender bilateral. Pulmonary: Breath sounds are diminished in the bases. Chest rises and falls symmetric with respiration. Gastrointestinal: Soft, nontender, nondistended. Bowel sounds in all four quadrants. Neurologic: He is alert and oriented x3. LABS: WBC is 9.3 with hemoglobin 11.9, hematocrit 38.2, platelets 193,000. Sodium 141, potassium 3.1, BUN 10, creatinine 1.2 with a glucose of 118, phosphorus is 1.3. CPK is 4932. ABGs, pH is 7.4 with pCO2 of 52, pO2 of 78, bicarb of 33.8. This is on 6 L nasal cannula. IMAGING: Chest x-ray revealed improvement of left lower lobe atelectasis. Stable right lower lobe atelectasis. ASSESSMENT AND PLAN: 1. Influenza A. Patient has completed Tamiflu. 2. Chronic obstructive pulmonary disease with acute exacerbation. continue bronchodilators. 3. Hypoxemic hypercarbic respiratory failure. Continue supplemental oxygen throughout the day and BiPAP at night. 4. Left lower lobe atelectasis plus or minus right lower lobe atelectasis. Continue Zosyn. 5. Ongoing tobacco use. Smoking cessation. 6. Acute kidney injury, resolved. 7. Rhabdomyolysis, improving. 8. History of hepatitis C. 9. Polysubstance abuse. 10. Incentive spirometer every four hours. 11. Plan was discussed with Dr. Watson. Dictated by KARLA Thomas for Anibal Watson MD cc: KARLA Thomas MD [facility]
[2019-07-09] MEDS: ZOSYN 3.375 GM in NS 50 ML IV SCH ×4 (02:38→20:53)
[2019-07-09] MEDS: DUONEB (A & A) INH SCH ×2 (03:36→08:16)
[2019-07-09 04:57] LABS: ALLEN TEST YES; BE 4.7 mmoll (-3.0-3.0); BLOOD TYPE ARTERIAL; HCO3-(ACT) 28.5 mmoll (20.0-26.0); METHB 1.1 % (0.0-1.5); O2(CT) 16.9 mL/dL (15.0-23.0); O2HB 94.2 % (95.0-99.0); PCO2(98.6) 42 mmHg (35-45); PO2(98.6) 73 mmHg (60-100); SAMPLE BLOOD; SAO2 96.8 % (95.0-100.0); THB 12.7 g/dL (11.5-17.4); pH(98.6) 7.45 (7.35-7.45)
[2019-07-09 04:58] LABS: MODALITY ROOM AIR
[2019-07-09 08:00] LABS: ALBUMIN 3.6 g/dL (3.5-5.0); CALCIUM 9.5 mg/dL (8.8-10.2); CREATININE 1.4 mg/dL (0.7-1.2); MAGNESIUM 1.7 mg/dL (1.5-2.7); PHOSPHORUS 2.6 mg/dL (2.7-4.5); POTASSIUM 3.3 mmol/L (3.5-5.1)
[2019-07-09] MEDS: PREDNISONE PO SCH (08:10)
[2019-07-09] MEDS: TRILEPTAL PO SCH ×2 (08:10→20:54)
[2019-07-09] MEDS: MARINOL PO SCH ×2 (08:10→20:54)
[2019-07-09] MEDS: NEUTRA-PHOS PO SCH ×4 (08:11→20:54)
--- NOTE | 2019-07-09 08:25 | PROVIDER PROGRESS NOTE ---
Progress Note Dr. Jackson Progress Note/Pulmonary and or critical care We appreciated progress of care, Complications, change in diagnosis, and instructions to patient under direct supervision of Dr. Jackson. Subjective: We note the level of consciousness, bed (chair) position, family presence (if any), level of lethargy, feeling of symptoms, and changes from baseline condition/symptom. The patient is sitting on the bedside chair. He is on room air and tolerates well. He does have some dry cough at times, but not bothering him. He reports no any pain, SOB, or wheezing. He states he is eager to go home. at the bedside. Objective: Vital Signs: We reviewed EMR current values for Pulse rate, Blood pressure, Pulse rate, respiratory rate and Pulse oximetry. Also noted other values and trends if present (e.g. I/O, CVP). Vital Signs 07/08/19 12:08 07/08/19 12:16 07/08/19 12:19 Temperature 98.4 F Pulse Rate 72 110 H Respiratory Rate 18 Blood Pressure 148/89 148/89 O2 Sat by Pulse Oximetry 91 L 96 07/08/19 14:48 07/08/19 16:13 07/08/19 19:41 Temperature 97.8 F Pulse Rate 100 H 100 H Respiratory Rate 20 16 Blood Pressure 172/91 O2 Sat by Pulse Oximetry 97 100 100 07/08/19 20:26 07/09/19 00:04 07/09/19 05:18 Temperature 98.8 F 98.9 F 98.7 F Pulse Rate 84 87 84 Respiratory Rate 19 20 16 Blood Pressure 149/79 156/81 157/88 O2 Sat by Pulse Oximetry 99 97 100 07/09/19 07:02 07/09/19 08:16 07/09/19 11:05 Temperature 97.5 F L 98.4 F Pulse Rate 98 H 95 H 99 H Respiratory Rate 18 95 H 18 Blood Pressure 164/109 157/101 O2 Sat by Pulse Oximetry 100 100 100 Intake & Output 07/08/19 07/09/19 07/09/19 19:59 07:59 19:59 Intake Total 970 / 1292 322 / 1292 240 / 240 Output Total 2675 / 2675 900 / 900 Balance -1705 / -1383 322 / -1383 -660 / -660 Intake: Intake, IV Amount 200 / 300 100 / 300 Intake, IVPB 50 / 50 Intake, Oral Amount 720 / 942 222 / 942 240 / 240 Output: Output, Urine Void Amount 2675 / 2675 900 / 900 Other: Percent of Meal Consumed 100% 100% Number of Continent Voids Not 3 Measured Number of Incontinent Voids 3 Physical Examination: General: Sitting on the bedside chair with no acute distress noted. at the bedside. HEENT: Normocephalic. Some surgical scar on the forehead. Trachea midline. Mucosa pink and moist. Poor dentition. Chest: Even and unlabored. Symmetrical excursion. Clear to auscultation bilaterally. CVS: Regular rate and rhythm. Abdomen: Soft. Mildly distended. Normoactive bowel sounds in all 4 quadrants. Extremities: No pedal edema. Dorsalis pedis diminished b/l. Neuro: A/Ox3. Speech fluent. Follow commands. Labs and Radiology: Reviewed available labs and radiology values available at time of EMR review. Laboratory Results 07/09/19 07/09/19 04:50 06:01 Specimen Type ARTERIAL Sample Site R RADIAL pH 7.45 pCO2 42 pO2 73 HCO3 28.5 H Base Excess 4.7 H Oxyhemoglobin 94.2 L ABG O2 Sat (Calculated) 16.9 ABG O2 Saturation 96.8 ABG Carboxyhemoglobin 1.60 ABG Methemoglobin 1.1 Kaden Test YES A-a O2 Difference 24.0 Total Hemoglobin 12.7 Lactate 1.90 Blood Gas Modality ROOM AIR FiO2 % 21.0 Sodium 139 Potassium 3.3 L Chloride 100 Carbon Dioxide 25 Anion Gap 14 BUN 13 Creatinine 1.4 H Estimated GFR/1.73 m2 54 BUN/Creatinine Ratio 9 Glucose 132 H Calculated Osmolality 280 Calcium 9.5 Phosphorus 2.6 L Magnesium 1.[address] Jackson evaluated and additional note below. Evaluation time in minutes: 31 minutes. Assessment: Influenza A. Improved. COPD exacerbation. Improved Hypoxemic and hypercapnic respiratory failure. Improved. Bibasilar atelectasis. Seizure disorder Polysubstance abuse Ongoing tobacco use Acute kidney injury. Bipolar disorder Rhabdomyolysis. Trending down. History of hepatitis C. Plan: Continue current treatment and supportive care per admitting and other teams on the case. Antibiotic. Steroid. Tapering down. Bronchodilators. Appropriate DVT and GI prophylaxis. Input was appreciated from Admitting MD and other teams on the case. See additional notes by Dr. Jackson.
[2019-07-09] MEDS ORDERED: POTASSIUM PHOSPHATE 15 MMOL in NS 250 ML IV ONE (09:20)
--- NOTE | 2019-07-09 10:19 | PROGRESS NOTE ---
DATE: 07/09/2019 SUBJECTIVE: The patient seems to be much better. He is sitting at the bedside. He is not using oxygen at this moment. Chest x-ray done yesterday showed improved left lower lobe atelectasis and stable right lower lobe atelectasis. Like I said, he seems to be doing much better. His CK level is elevated though. I will ask for a new one tomorrow. I will replace the electrolytes today and hopefully, tomorrow, if this patient is doing fine, probably I will discharge him. PHYSICAL EXAMINATION: Vital Signs: Temperature 98.7 degrees, pulse 84, respiratory rate 16, blood pressure 157/88, oxygen saturation 100% on room air. HEENT: Head normocephalic. No new trauma. PERRLA. He has a forehead scar with some bony abnormality from previous craniectomy. Neck: Supple. Chest: Decreased breath sounds with some crepitus at the bases. Abdomen: Soft, nontender, nondistended. Extremities: No edema, no clubbing, no cyanosis. Neurologic Examination: The patient is awake, alert. He is oriented x3. No focal deficits. LABORATORY DATA: Sodium 139, potassium 3.3, chloride 100, bicarbonate 25, BUN 13, creatinine 1.4, glucose 132, calcium 9.5, phosphorus 2.6, magnesium 1.7, albumin 3.6. ASSESSMENT AND PLAN: 1. Acute hypoxemic and hypercarbic respiratory failure. This patient is doing much better. Continue with the same management. He is not on oxygen right now. 2. Chronic obstructive pulmonary disease with severe exacerbation on admission, improving. 3. Influenza A infection. He already received treatment with a 5 day course of Tamiflu. 4. Seizure at home, aware. Continue with oxcarbazepine. 5. Nonoliguric acute kidney injury on presentation. His urine output seems to be stable. His CK level is high though. 6. Rhabdomyolysis. CK level is trending down. I will recheck that tomorrow. 7. History of hepatitis C. The patient will need to follow up with gastroenterology as an outpatient. 8. Hyperreactive delirium during the hospital course, resolved. 9. Electrolyte abnormalities including hypophosphatemia and hypokalemia, which I will replace. 10. Polysubstance abuse. As per the patient, he does not use intravenous drugs. He does marijuana and methamphetamines. He has been advised. 11. Shock on presentation, likely septic shock. 12. Supratherapeutic INR on presentation. He has been off Coumadin, which I will restart it. He has a history of deep vein thrombosis and he had an episode of atrial fibrillation with rapid ventricular response during this hospitalization. His INR was therapeutic a few days ago, on 07/05/2019. 13. Tobacco abuse. This patient has been highly advised against tobacco use. I will continue with daily cessation education. 14. Possible left lower lobe pneumonia. This patient has been treated already for that. Continue with antibiotics. 15. This patient is doing remarkably better. I do believe he can be discharged tomorrow. I will get a new set of lab work. I will put this patient back on some of his home medications including diltiazem and warfarin. I had a large conversation with him about alcohol, drug abuse, and tobacco use. He seems to understand. cc: Jesús Paul MD
--- NOTE | 2019-07-09 13:56 | NEUROLOGY PROGRESS NOTE ---
DATE: 07/09/2019 Mr. Cary has continued to recover mentally. He may be back to baseline now. Today, he told me he thinks he takes 1/2 of an oxcarbazepine tablet twice a day [facility] but he does not know the size for that tablet. He has done well here with oxcarbazepine 300 mg b.i.d. and I think we could continue that dose until he [facility], which he reports will be soon after discharge. Encephalopathy appears to be resolved. I will sign off and be glad to see Mr. Cary again if there is need for further neurology evaluation. Thanks for asking us to see him here. cc: Nixon Bray III, MD MTDD
[2019-07-09] MEDS: ISOPTIN SR PO SCH (14:03)
[2019-07-09] MEDS: TYLENOL PO PRN (20:54)
[2019-07-09] MEDS ORDERED: COUMADIN PO SCH (21:00)
[2019-07-09] MEDS ORDERED: CALMOSEPTINE OINTMENT TOP PRN (21:28)
[2019-07-10] MEDS ORDERED: ZOSYN 3.375 GM in NS 50 ML IV SCH (03:00)
[2019-07-10 07:52] LABS: INR 0.95; PROTIME 12.7 Seconds (11.0-16.0)
[2019-07-10] MEDS: DUONEB (A & A) INH PRN (08:01)
[2019-07-10 08:09] VITALS: BP 174/95
[2019-07-10 08:12] LABS: AGAP 12; ALB/GLOB RATIO 1.4; ALBUMIN 3.7 g/dL (3.5-5.0); ALKALINE PHOSPHATASE 83 U/L (32-122); BUN 16 mg/dL (8-22); CALCIUM 9.5 mg/dL (8.8-10.2); CHLORIDE 100 mmol/L (98-107); COSMO 277; CREATININE 1.2 mg/dL (0.7-1.2); ESTIMATED GFR > 60; GLUCOSE 93 mg/dL (70-104); GOT 94 U/L (10-34); GPT 58 U/L (10-44); MAGNESIUM 1.6 mg/dL (1.5-2.7); PHOSPHORUS 3.4 mg/dL (2.7-4.5); POTASSIUM 3.9 mmol/L (3.5-5.1); SODIUM 138 mmol/L (136-145); TCO2 26 mmol/L (25-35); TOTAL BILIRUBIN 0.57 mg/dL (0.20-1.00); TOTAL PROTEIN 6.4 g/dL (6.3-8.3)
[2019-07-10 08:44] LABS: CK INDEX 0.8 (0.0-2.5); CK-MB 4.67 ng/mL (0.0-5.0)
[2019-07-10] MEDS ORDERED: PREDNISONE PO SCH (09:00)
[2019-07-10] MEDS ORDERED: TENORMIN PO SCH (09:00)
[2019-07-10] MEDS: ISOPTIN SR PO SCH (09:08)
[2019-07-10] MEDS: MARINOL PO SCH (09:08)
[2019-07-10] MEDS: NEUTRA-PHOS PO SCH (09:09)
[2019-07-10] MEDS: TRILEPTAL PO SCH (09:09)
--- NOTE | 2019-07-11 10:38 | DISCHARGE SUMMARY ---
ADMISSION DATE: 06/28/2019 DISCHARGE DATE: 07/10/2019 DISCHARGE DIAGNOSES: 1. Acute hypoxemic and hypercarbic respiratory failure. 2. Chronic obstructive pulmonary disease with severe exacerbation of that on admission. 3. Influenza A infection. 4. Seizure at home. 5. Septic shock on presentation. 6. Left lower lobe pneumonia. 7. Rhabdomyolysis. 8. Acute kidney injury. 9. History of hepatitis C. 10. Hyper reactive delirium during the hospital course. 11. Electrolyte abnormality. 12. Polysubstance abuse with a urine toxicology that showed marijuana and methamphetamine, having possible use of marijuana and methamphetamines. 13. Supratherapeutic INR on presentation. 14. History of deep venous thrombosis. PROCEDURES PERFORMED: 1. Head CT scan dated 06/28/2019 impression: Postsurgical changes of left femoral craniotomy, chronic-appearing ischemic changes. No acute intracranial abnormality. No hemorrhage or mass effect. 2. Echocardiogram dated 06/28/2019. Ejection fraction 60 to 65 percent. The right ventricle appears to be [id number] enlarged. No diastolic dysfunction. The right atrium appears to be mildly enlarged, as well as the left atrium. 3. Chest x-ray dated 06/28/2019 impression: Endotracheal NG tube is in good position. 4. Chest x-ray dated 06/29/2019 impression: Stable. 5. Chest x-ray dated 07/09/2019 impression: Slightly lower lung volumes with central vascular crowding versus mild pulmonary venous congestion. He had multiple chest x-rays in the ICU. 6. On 07/03/2019 showed some atelectasis that they were getting better. 7. On the 07/05/2019 showed severely low lung volumes, increasing atelectasis in the left lung base. I checked these and I believe she had also a pneumonia in that place. CONSULTATIONS: 1. Nephrology Department Dr. Gomez. 2. Pulmonary Department Dr. Jackson/Dr. Watson. FOLLOW: Neurology Department, Dr. Bray. HOSPITAL COURSE: This is a 48-year-old male with a past medical history of COPD, hypertension, hyperlipidemia, polysubstance abuse, who presented via EMS after having apparently a seizure and was admitted on 06/28/2019. He was admitted to [facility] on June 22 with COPD exacerbation. After receiving breathing treatments, steroids and clinically improved, he became agitated and left AMA. He then returned to the emergency room on the 27 of June wheezing with productive cough. It is apparently documented that EMS states that he had a room air saturation of 84% on their arrival. He was placed on oxygen in the emergency room. The states that while in the emergency room he improved with treatment. The ER doctor evaluated this patient and he refused to be admitted and then he left again AMA. Then he returned via EMS after having a seizure around 7 a.m. the next day or so. He was intubated by the emergency room physician and the hospitalist has been called for admission. The influenza screening was positive for influenza A. He had severe COPD exacerbation on presentation with acute respiratory failure. He was placed on antibiotics at that time for possible aspiration. He was also hyperkalemic and with acute kidney injury on chronic kidney disease, so Nephrology Department was consulted and he was transferred to [facility] for more treatment and multiple subspecialty evaluations, including Pulmonary Department. He has a history also of bipolar and PTSD. In the ICU, this patient was evaluated by Dr. Jackson, and he was basically paralyzed, but even though he was on strong medications, he was still getting agitated. He was finally extubated, but he was really confused and agitated. His CK level increased during that period and reached high numbers like 6849. He was hydrated. His kidney function was getting better, and today is basically his baseline. His rhabdomyolysis is also improved. He was evaluated by Neurology Department. We put this patient on seizure medication, but then we find out that this patient was on oxcarbazepine and we put him back on this treatment, as well as Geodon. He was improving. He was placed on a diet. He seemed to be better, so he was transferred to the medical floor initially to [facility] and then to the regular floor. He was improving on a daily basis yesterday. I re-evaluated this patient. He was ready to go home, but the CK level was almost 5000 and he got some electrolyte abnormalities, I including low phosphorus and potassium. Today I repeated the lab work; it is much better. Vital signs are more stable, so I have decided to discharge this patient home with strict followup by his primary care physician at the [place]. At the moment of discharge, this patient was in stable medical condition tolerating p.o. and ambulating. DISCHARGE PHYSICAL EXAMINATION: Vital signs: Temperature 98.0 degrees, pulse 92, respiratory rate 19, blood pressure 174/95, oxygen saturation 99 on room air. HEENT: Head normocephalic. No new trauma. PERRLA. He has a chronic wound on his forehead with signs of craniotomy done before. Neck: Neck is supple. No JVD. Central trachea. Chest: Clear to auscultation. No wheezing. Some crepitus at the bases. Abdomen: Soft, nontender, nondistended. No hepatosplenomegaly. Extremities: No edema, no clubbing, no cyanosis. Neurological examination: The patient is alert. He is oriented. He is following commands. LABORATORY: Today sodium 138, potassium 3.9, chloride 100, bicarbonate 26. BUN 16, creatinine 1.2, glucose 93, calcium 9.5, phosphorus 3.4, total bilirubin 0.5. AST 94, ALT 58, alkaline phosphatase 83, and CK level decreased from 4932 to 622. Albumin level 3.7. DISCHARGE MEDICATIONS: 1. DuoNebs 3 mL inhaler q. 6 hours as needed. 2. Atenolol 100 mg p.o. b.i.d. 3. Atorvastatin 4 mg p.o. daily. I asked the patient not to drink, not to take this medication for at least 5 to 7 days, and this can be restarted only if his primary care doctor is okay with that. The reason why we stopped for now this medication is because of the increased liver function test. 4. Loratadine 10 mg p.o. daily. 5. Nicotine patch daily 21 mg, 6. Oxcarbazepine 300 mg p.o. b.i.d. 7. Prednisone 10 mg p.o. daily for 3 days and then 5 mg p.o. daily for 3 days and then stop. 8. Sildenafil 100 mg p.o. as needed. 9. Verapamil 120 mg p.o. daily. 10. Warfarin 5 mg p.o. daily. 11. Ziprasidone 80 mg p.o. b.i.d. TIME DISCHARGING THIS PATIENT: At least 40 minutes. cc: Jesús Paul MD
== END 2019-07-10 10:38 | disposition home health service (06) | DRG 870 ==
LOC: P.ED 06:42 → SUATTDRO 12:08 → ICU 12:08 → 2N 07-05 16:33 → 3N 07-09 21:26
PROVIDERS: ATTEND Internal Medicine